=== PATIENT | female | born 1940 | race African-American/Black ===

== ENCOUNTER 2016-11-06 22:33 | Emergency (ER) | payer MEDICARE, MEDICAID ==
[2016-11-06] MEDS ORDERED: Ketorolac Tromethamine 30 MG/ML VIAL ONE (23:36)
--- NOTE | 2016-11-06 23:59 | RAD ---
TWO VIEWS RIGHT KNEE 11/06/16 HISTORY: Right knee pain after fall one day ago. Right knee and ankle swelling since this time. FINDINGS: There is tricompartment osteophytosis. There is mild narrowing of the lateral joint compartment. Denis cifications overlie both the medial and lateral joint compartment suggesting chondrocalcinosis. Ther e is diffuse osteopenia. No fracture or dislocation is identified. IMPRESSION: 1. Osteopenia and osteoarthritis. 2. Chondrocalcinosis medial and lateral joint compartments of the right knee. 3. No acute fracture visualized. POS: [facility]
--- NOTE | 2016-11-07 00:01 | RAD ---
THREE VIEWS RIGHT ANKLE: 11/06/16 HISTORY: Right knee and ankle swelling from mechanical fall one day ago. Right ankle and knee pain. FINDINGS: The ankle mortise is congruent. No fracture or dislocation is seen. The ankle mortise appears congru ent. There is diffuse osteopenia. Subcutaneous soft tissue swelling is seen about the ankle. IMPRESSION: 1. Subcutaneous soft tissue swelling without evidence of fracture. 2. Osteopenia. POS: [facility]
== END 2016-11-07 00:21 | disposition home or self-care (01) ==
LOC: ERS 22:33
DX: S83.91XA Sprain of unspecified site of right knee, initial encounter (principal); S93.401A Sprain of unspecified ligament of right ankle, initial encounter; M19.90 Unspecified osteoarthritis, unspecified site; E11.9 Type 2 diabetes mellitus without complications; I10 Essential (primary) hypertension; I48.91 Unspecified atrial fibrillation; J44.9 Chronic obstructive pulmonary disease, unspecified; K21.9 Gastro-esophageal reflux disease without esophagitis; W01.190A Fall on same level from slipping, tripping and stumbling with subsequent striking against furniture, initial encounter; Z79.51 Long term (current) use of inhaled steroids; Z79.899 Other long term (current) drug therapy
CPT/HCPCS: 96372; J1885

== ENCOUNTER 2016-11-17 01:09 | Inpatient (IN) | payer MEDICARE, MEDICAID ==
[2016-11-17 01:51] LABS: #Eosinphils 0.1 thou/uL (0.0-0.7); #Lymphocytes 1.1 thou/uL (1.20-3.40); #Monocytes 0.5 thou/uL (0.11-0.59); #Neutrophils 2.8 thou/uL (1.40-6.50); %Basophils 0.8 % (0.0-1.0); %Eosinophils 3.1 % (0.0-10.0); %Monocytes 10.6 % (0.0-10.0); Hematocrit 27.1 % (36.0-47.0); Mean Platelet Volume 7.3 fL (7.4-10.4); Red Blood Cell (RBC) Count 2.84 mill/uL (4.20-5.40); White Blood Cell (WBC) Count 4.6 thou/uL (4.8-10.8)
[2016-11-17 02:24] LABS: ALT (SGPT) 7 U/L (8-55); AST (SGOT) 21 U/L (5-34); Alkaline Phosphatase 27 U/L (40-150); Anion Gap 8 mmol/L (10-20); BUN (Urea Nitrogen) 27 mg/dL (9.8-20.1); Bilirubin, Total 0.4 mg/dL (0.2-1.2); CK (CPK) 51 U/L (29-168); Calc. Creatinine Clearance 0 mL/min (70-130); Calcium 8.7 mg/dL (7.8-10.44); Carbon Dioxide 25 mmol/L (23-31); Chloride 97 mmol/L (98-107); Estimated GFR-MDRD 41; Globulin 3.7 g/dL (2.4-3.5); Lipase 122 U/L (8-78); Protein, Total 6.8 g/dL (6.0-8.3)
[2016-11-17 02:26] LABS: Troponin I 0.013 ng/mL (< 0.028)
[2016-11-17] MEDS ORDERED: Sodium Chloride 0.9% 1,000 ML IV SCH (05:15)
--- NOTE | 2016-11-17 08:37 | RAD ---
PORTABLE UPRIGHT FRONTAL CHEST RADIOGRAPH: DATE: 11/17/16. COMPARISON: 10/06/16. HISTORY: Allergic reaction, COPD, hypertension, diabetes mellitus. FINDINGS: There is mild rotation to the right. Heart and mediastinal contour is unremarkable. No pneumothora x, pleural fluid, focal consolidation, or alveolar edema. IMPRESSION: No acute findings. POS: [facility]
--- NOTE | 2016-11-17 09:11 | HP ---
CHIEF COMPLAINT: Hyponatremia, thrush and exacerbation of chronic obstructive pulmonary disease. HISTORY OF PRESENT ILLNESS: The patient is a 75-year-old [facility] a [facility] to Cipro. She had a sore throat and dizziness, worsen ing of her cough and itching diffusely. In the emergency room, she was evaluated and noted to have a sodium of 125. Her tongue was completely coated with thrush. Her cough was much worse, necessita ting nebulizer treatments in the emergency room to help alleviate constant coughing. She is put int o the [facility] for treatment of her exacerbation of COPD and thrush and to correct the hyponatremia. PAST MEDICAL HISTORY: Significant for atrial fibrillation - unable to anticoagulate due to recurren t GI bleed and thrombocytopenia, COPD, diabetes type 2, possibly exacerbated by steroids in the past to control her COPD, hypertension, severe GERD, hernia, tracheomalacia, esophageal stricture, pancr eatitis, colonic polyps, history of congestive heart failure, history of peptic ulcer disease requir ing resection. Coronary artery disease status post stents and adult respiratory distress syndrome. PAST SURGICAL HISTORY: Includes cholecystectomy, colonic polyp removal and tracheal stent placement , Billroth II gastric surgery, section and cardiac stents and prior history of adult respir atory distress syndrome, pneumonia. SOCIAL HISTORY: Previous [id number] smoker. She has quit less than 10 years ago. Denies alcohol use or IV drug use. Lives at home with her family. FAMILY HISTORY: Includes diabetes, hypertension. ALLERGIES: ASPIRIN, CIPROFLOXACIN, CLARITHROMYCIN, DOXYCYCLINE, INFLUENZA VACCINE, KEFLEX, MORPHINE , PENICILLINS, PNEUMOCOCCAL VACCINE. MEDICATIONS ON ADMISSION: Lasix 40 mg daily, losartan 25 mg daily. Apparently, she has been taking some over the counter Dexatrim. VITAL SIGNS: Blood pressure 138/69, pulse 95, respirations 18, temperature 98.6. Pain scale 4/10, O2 sat 100% on room air. REVIEW OF SYSTEMS: GENERAL: Denying fever, chills, malaise generally. EYES: Denies blurred vision, drainage or pain. ENT: Denies congestion or drainage, but has chronic cough and her tongue is coated with painful swa llowing and dysphagia. NECK: Supple, no pain there. CHEST: Has chronic cough, made much worse recently. No pain with deep inspiration. CARDIOVASCULAR: Denies palpitations or arrhythmias. GI: Denies nausea, vomiting, diarrhea or pain in the abdomen. GENITOURINARY: Denies dysuria, blood in urine or stool. MUSCULOSKELETAL: She has significant lower leg swelling, denies painful range of motion or trauma. SKIN: Admits to diffuse itching, but there is no rash or obvious lesions. NEUROLOGIC: She reports dizziness, but denies headache, blurred vision. ENDOCRINE: She denies excessive thirst, urination. ALLERGIC: Reports that she is having a reaction to Cipro with diffuse itching. NEURO: Mental status, no trouble with mentation, confusion, hallucinations or delusions. PHYSICAL EXAMINATION: GENERAL: At the time of admission generally well-developed, well-nourished elderly female, alert, o riented, and cooperative. HEENT: Normocephalic and atraumatic. Pupils are equal, round, and reactive to light with arcus sen ilis bilaterally. TMs clear. Nares clear. Pharynx with erythema and swollen tongue with diffuse w nadeen coating over the tongue, it is extremely thick and unable to remove. NECK: Supple, without loud respirations, no swelling or edema. CHEST: With diminished breath sounds diffusely. BREASTS: Breast exam deferred. HEART: Irregular rate, irregular rhythm. ABDOMEN: Soft, nontender, without organomegaly. GENITOURINARY: Deferred. EXTREMITIES: Without clubbing, cyanosis. There is 2+ edema in both lower extremities. Normal rang e of motion demonstrated in upper and lower extremities with symmetrical muscular tone development n oted. SKIN: Intact without acute lesions or rashes. NEUROLOGIC: Cranial nerves are intact. Unable to test gait and cerebellar function at this time. Sensory exam is intact. Mental status is at baseline with mild anxiety. SKIN: Without acute rashes or lesions. LABORATORY: Lab work thus far shows WBCs at 4.6, hemoglobin 8.7, hematocrit 27.1 with platelets at 144. Sodium 125, potassium 4.7, chloride 97, CO2 25, BUN 27, creatinine 1.52. ALT diminished at 7, alkaline phosphatase diminished at 27. CK-MB is negative. BNP slightly elevated at 236, lipase at 122. ASSESSMENT: 1. Exacerbation of chronic obstructive pulmonary disease. 2. Hyponatremia. 3. Oral thrush. 4. Renal insufficiency. 5. Mild congestive heart failure with a BNP of 236.9. 6. Probable mild chronic pancreatitis, asymptomatic at this time. PLAN: Scheduled neb treatments. Continue diuretic, antifungal medication both oral and topical, fl uid restriction to allow for elevation of sodium levels, serial reevaluation. We will also Hemoccul t stools to see if any GI bleed is present at this time.
[2016-11-17] MEDS ORDERED: Milk Of Magnesia 30 ML UDCUP PO SCH (10:30)
[2016-11-17] MEDS ORDERED: Furosemide 40 MG TAB PO SCH (10:30)
[2016-11-17] MEDS ORDERED: Fluconazole 100 MG TAB PO SCH (10:30)
[2016-11-17] MEDS: Sodium Chloride 0.9% 1,000 ML IV SCH ×2 (10:45→20:55)
[2016-11-17] MEDS ORDERED: Acetaminophen/Codeine 30-300mg Tablet PO SCH (12:00)
[2016-11-17] MEDS: Nystatin 500,000 UNITS/5 ML UDCUP SSW SCH ×3 (13:28→20:52)
[2016-11-17] MEDS ORDERED: traMADol HCl 50 MG TAB PO SCH (15:30)
[2016-11-17] MEDS: traMADol HCl 50 MG TAB PO SCH (20:51)
[2016-11-17] MEDS: Losartan Potassium 25 MG TAB PO SCH (20:51)
[2016-11-18 04:18] VITALS: BMI 29.1
[2016-11-18 05:28] LABS: #Eosinphils 0.1 thou/uL (0.0-0.7); #Lymphocytes 0.8 thou/uL (1.20-3.40); #Monocytes 0.4 thou/uL (0.11-0.59); %Basophils 0.5 % (0.0-1.0); %Lymphocytes 18.7 % (21.0-51.0); %Monocytes 9.7 % (0.0-10.0); Hematocrit 26.5 % (36.0-47.0); Mean Platelet Volume 7.4 fL (7.4-10.4); Red Blood Cell (RBC) Count 2.74 mill/uL (4.20-5.40); White Blood Cell (WBC) Count 4.4 thou/uL (4.8-10.8)
[2016-11-18] MEDS: traMADol HCl 50 MG TAB PO SCH ×3 (05:30→20:50)
[2016-11-18] MEDS: Sodium Chloride 0.9% 1,000 ML IV SCH (05:34)
[2016-11-18 05:44] LABS: Anion Gap 8 mmol/L (10-20); BUN (Urea Nitrogen) 21 mg/dL (9.8-20.1); Calc. Creatinine Clearance 46 mL/min (70-130); Calcium 8.2 mg/dL (7.8-10.44); Carbon Dioxide 23 mmol/L (23-31); Chloride 107 mmol/L (98-107); Estimated GFR-MDRD 60
--- NOTE | 2016-11-18 08:13 | PRG ---
DATE OF SERVICE: 11/18/2016 The patient did not rest very well because she was coughing. She is hungry and needs help ordering breakfast. She denies any chest or arm pain. She stated that she also feels a little bit weak toda y. PHYSICAL EXAMINATION: GENERAL: Upon evaluation, she is awake. She is alert. She is tachypneic. VITAL SIGNS: Blood pressure 122/70, pulse 90, respiration 16, temperature 98.3. HEENT: Unremarkable. She had bilateral arcus senilis. There is no xanthelasma. NECK: Supple with no increased JVP. Carotid had good upstroke with no thyromegaly. COR: Regular rate and rhythm. CHEST: Scattered rhonchi. ABDOMEN: Soft, nontender with normoactive bowel sounds. No bruit or organomegaly. EXTREMITIES: No edema or cyanosis. She had palpable pedal pulses. SKIN: There is no evidence of ulceration, lesion or rash. NEUROLOGIC: She is awake and alert and oriented to person, place and time. LABORATORY DATA: Showed an H\T\H of 8.4 and 26.5. Her white blood cells 4.4, platelet count is 121 . Her sodium is better at 134. ASSESSMENT: 1. Exacerbation of chronic obstructive pulmonary disease. 2. Hyponatremia, improved. 3. Anemia. 4. Hypertension. 5. Renal insufficiency, improved. PLAN: 1. We will go ahead and check stools for occult blood and also check iron studies. 2. We will follow up with lab in the morning. 3. We will hold off on GI now since she had a GI workup 10/09/2016 and endoscopy was not recommende d as she is high risk for sedation. The patient verbalized understanding and all questions answered to her satisfaction.
[2016-11-18] MEDS: Milk Of Magnesia 30 ML UDCUP PO SCH (08:18)
[2016-11-18] MEDS: Nystatin 500,000 UNITS/5 ML UDCUP SSW SCH ×4 (08:19→20:50)
[2016-11-18] MEDS: Fluconazole 100 MG TAB PO SCH (08:19)
[2016-11-18] MEDS: Furosemide 40 MG TAB PO SCH (08:19)
[2016-11-18] MEDS: Losartan Potassium 25 MG TAB PO SCH (20:50)
[2016-11-19] MEDS: traMADol HCl 50 MG TAB PO SCH (05:51)
[2016-11-19 06:04] LABS: #Eosinphils 0.1 thou/uL (0.0-0.7); #Lymphocytes 1.2 thou/uL (1.20-3.40); #Monocytes 0.7 thou/uL (0.11-0.59); #Neutrophils 4.3 thou/uL (1.40-6.50); %Basophils 0.5 % (0.0-1.0); %Eosinophils 1.1 % (0.0-10.0); %Lymphocytes 19.4 % (21.0-51.0); %Monocytes 10.3 % (0.0-10.0); Hematocrit 25.7 % (36.0-47.0); Mean Platelet Volume 8.6 fL (7.4-10.4); Red Blood Cell (RBC) Count 2.63 mill/uL (4.20-5.40); White Blood Cell (WBC) Count 6.3 thou/uL (4.8-10.8)
[2016-11-19 07:29] VITALS: BP 136/79; TEMP 98.4
[2016-11-19] MEDS: Nystatin 500,000 UNITS/5 ML UDCUP SSW SCH (09:46)
[2016-11-19] MEDS: Milk Of Magnesia 30 ML UDCUP PO SCH (09:46)
[2016-11-19] MEDS: Furosemide 40 MG TAB PO SCH (09:46)
[2016-11-19] MEDS: Fluconazole 100 MG TAB PO SCH (09:46)
--- NOTE | 2016-11-19 10:04 | PQF ---
CLINICAL DOCUMENTATION IMPROVEMENT CLARIFICATION FORM: ICD-10 Updated PLEASE DO AN ADDENDUM TO THE PROGRESS NOTE WITH ANY DOCUMENTATION UPDATES OR ADDITIONS AND CARRY THROUGH TO DC SUMMARY. THANK YOU. DATE: 11/19 ATTN: DR. DIANNE GRANT Please exercise your independent, professional judgment in responding to the clarification form. Clinical indicators are provided on the bottom of this form for your review Please check appropriate box(s): HEART FAILURE: A.TYPE: [ ] Systolic / HFrEF [ ] Diastolic / HFpEF [ x ] Combined Systolic / Diastolic B.ACUITY [ ] Acute [ ] Acute on Chronic [ x ] Chronic C.WITH (if appropriate) [ ] Hypertensive Heart Disease [ ] Hypertensive Heart and Kidney Disease [ ] Other diagnosis [ x ] Unable to determine For continuity of documentation, please document condition throughout progress notes and discharge summary. Thank You. CLINICAL INDICATORS - SIGNS / SYMPTOMS / LABS PHYSICIAN H&P DOCUMENTATION 11/17: PAST MEDICAL HISTORY: HISTORY OF CHF PHYSICAL EXAM: EXTREMITIES: THERE IS 2+ EDEMA IN BOTH LE ASSESSMENT: 5 : MILD CHF WITH A BNP OF 236.9 PLAN: CONTINUE DIURETIC,... BNP: 236.9 RISKS: CAD WITH CARDIAC STENTS HTN TREATMENTS: NOW DOSE OF PO LASIX ON 11/17 CONTINUATION OF PO LASIX (11/18 - PRESENT) THANK YOU! [place] (This form is maintained as a part of the permanent medical record) 2015 [employer]. All Rights Reserved Odessa Cordova RN, BSN [email or web address] Office: [phone] [facility]
--- NOTE | 2016-11-19 10:13 | PQF ---
CLINICAL DOCUMENTATION IMPROVEMENT CLARIFICATION FORM: ICD-10 Updated PLEASE DO AN ADDENDUM TO THE PROGRESS NOTE WITH ANY DOCUMENTATION UPDATES OR ADDITIONS AND CARRY THROUGH TO DC SUMMARY. THANK YOU. DATE: 11/19 ATTN: DR. DIANNE GRANT Please exercise your independent, professional judgment in responding to the clarification form. Clinical indicators are provided on the bottom of this form for your review Please check appropriate box(s): [ x ] Acute Renal Failure (ARF) / Acute Kidney Injury (MOODY) (Please specify associated condition, if applicable) [ x ] Other Etiology or underlying conditions related to the diagnosis of ARF/ MOODY: ____dehydration - mild [ ] Acute on Chronic Renal Failure please specify Stage of CKD (see below) [ ] CKD without ARF/MOODY please specify Stage of CKD [ ] Other diagnosis [ ] Unable to determine In addition, please specify: Present on Admission (POA): [ ] Yes [ ] No [ ] Unable to determine National Kidney Foundation Guidelines for CKD Staging Stage I Kidney damage with normal or increased GFR GFR > 90 Stage II Kidney damage with mildly decreased GFR GFR 60-89 Stage III Kidney damage with moderately decreased GFR GFR 30-59 Stage IV Kidney damage with severely decreased GFR GFR 16-29 Stage V Kidney failure GFR<15 ESRD End Stage Renal Disease On dialysis For continuity of documentation, please document condition throughout progress notes and discharge summary. Thank You. CLINICAL INDICATORS - SIGNS / SYMPTOMS / LABS PHYSICIAN H&P DOCUMENTATION 11/17: ASSESSMENT: 4: RENAL INSUFFICIENCY ( NON-SPECIFIC TERMINOLOGY) [employer] SAL[employer] REPRESENTATIVE PROGRESS NOTE DOCUMENTATION 11/18: ASSESSMENT: RENAL INSUFFICIENCY, IMPROVED BUN: 27 CR: 1.52 GFR: 41 (ADMIT, 11/17) 21 1.09 60 (11/18) RISK FACTORS: HOME PO DIURETIC (LASIX) HTN CAD TREATMENTS: IVF (NS 11/17 - PRESENT) SERIAL LAB (11/17 - 11/18) THANK YOU! [place] (This form is maintained as a part of the permanent medical record) 2014 [employer]. All Rights Reserved Odessa Cordova RN, BSN [email or web address] Office: [phone] [facility]
== END 2016-11-19 12:23 | disposition home or self-care (01) | DRG 190 ==
LOC: ERS 01:09 → T4-B 03:30 → OBSVTOIN 08:53
PROVIDERS: ADMIT Specialist; ATTEND Specialist
DX: J44.1 Chronic obstructive pulmonary disease with (acute) exacerbation (principal); K85.90 Acute pancreatitis without necrosis or infection, unspecified; N17.9 Acute kidney failure, unspecified; B37.0 Candidal stomatitis; E87.1 Hypo-osmolality and hyponatremia; I48.2 Chronic atrial fibrillation; I11.0 Hypertensive heart disease with heart failure; I50.9 Heart failure, unspecified; E11.9 Type 2 diabetes mellitus without complications; K21.9 Gastro-esophageal reflux disease without esophagitis; J39.8 Other specified diseases of upper respiratory tract; K27.9 Peptic ulcer, site unspecified, unspecified as acute or chronic, without hemorrhage or perforation; I25.10 Atherosclerotic heart disease of native coronary artery without angina pectoris; Z95.5 Presence of coronary angioplasty implant and graft; Z87.891 Personal history of nicotine dependence; Z88.6 Allergy status to analgesic agent; Z88.1 Allergy status to other antibiotic agents; Z88.5 Allergy status to narcotic agent; Z88.0 Allergy status to penicillin; Z88.7 Allergy status to serum and vaccine; D64.9 Anemia, unspecified
CPT/HCPCS: 36415; 36416; 71010; 80048; 80053; 82553; 82607; 82728; 82746; 83540; 83690; 83880; 84484; 85025; 87040; 93005; 94640; 96360; A4216; G8996-GN-CI; G8997-GN-CI; J7620

== ENCOUNTER 2017-03-30 01:02 | Inpatient (IN) | payer MEDICARE, MEDICAID ==
[2017-03-30 01:51] LABS: #Lymphocytes 1.5 thou/uL (1.20-3.40); #Monocytes 0.7 thou/uL (0.11-0.59); %Basophils 0.6 % (0.0-1.0); %Lymphocytes 21.1 % (21.0-51.0); %Neutrophils 69.3 % (42.0-75.0); Mean Corpuscular HGB CONC 32.2 g/dL (32.0-36.0); Mean Corpuscular Hemoglobin 29.6 pg (27.0-31.0); Mean Platelet Volume 9.3 fL (7.4-10.4); Platelet Count 204 thou/uL (130-400); RBC Distribution Width 13.5 % (11.5-14.5); Red Blood Cell (RBC) Count 3.73 mill/uL (4.20-5.40); White Blood Cell (WBC) Count 7.3 thou/uL (4.8-10.8)
[2017-03-30 02:04] LABS: Troponin I 0.064 ng/mL (< 0.028)
[2017-03-30] MEDS ORDERED: Esmolol 2,500 MG/250 ML 0 ML ONE (03:13)
[2017-03-30] MEDS ORDERED: Esmolol 100 MG/10 ML VIAL IVP SCH (03:30)
[2017-03-30 04:47] LABS: INR-International Normal Ratio 1.1; Prothrombin Time 14.3 SEC (12.0-14.7)
[2017-03-30 05:05] LABS: ALT (SGPT) 12 U/L (8-55); AST (SGOT) 21 U/L (5-34); Albumin 3.7 g/dL (3.4-4.8); Alkaline Phosphatase 26 U/L (40-150); Anion Gap 14 mmol/L (10-20); BUN (Urea Nitrogen) 63 mg/dL (9.8-20.1); Bilirubin, Total 0.6 mg/dL (0.2-1.2); Calc. Creatinine Clearance 0 mL/min (70-130); Carbon Dioxide 14 mmol/L (23-31); Chloride 113 mmol/L (98-107); Estimated GFR-MDRD 25; Globulin 4.2 g/dL (2.4-3.5); Glucose 117 mg/dL (83-110); Lipase 83 U/L (8-78); Potassium 5.1 mmol/L (3.5-5.1); Protein, Total 7.9 g/dL (6.0-8.3); Sodium 136 mmol/L (136-145)
[2017-03-30] MEDS ORDERED: Esmolol 2,500 MG/250 ML 250 ML ONE (06:27)
[2017-03-30 06:38] LABS: Troponin I 0.057 ng/mL (< 0.028)
[2017-03-30 06:50] LABS: Bilirubin Negative (Negative); Blood, Urine Negative (Negative); Clarity CLEAR (Clear); Glucose, Urine (Dipstick) Negative (Negative); Leukocyte Negative (Negative); Nitrite Negative (Negative); Protein, Urine (Dipstick) Negative (Neg-Trace); Specific Gravity, Urine 1.013 (1.002-1.036); Urobilinogen 0.2 mg/dL (0.2-1.0); pH, Urine 5.5 (5.0-9.0)
--- NOTE | 2017-03-30 08:16 | HP ---
CHIEF COMPLAINT: Altered mental status. HISTORY OF PRESENT ILLNESS: The patient is a 76-year-old female whom the daughter states when she aw hood earlier this morning to give her commands about going to the bathroom, the patient was confused a nd speaking things that were illogical and not following commands. The patient denies any fever, denise sea, vomiting, diarrhea, coughing more than usual, or any other behavior like falls, striking her hea d. She had EMS bring her mom in. Since arrival in the emergency room of note is the atrial fibrill ation with rapid ventricular response, otherwise chest x-ray is clear. Urinalysis is normal. It was felt that she was very dry and despite fluid resuscitation has not returned to her baseline mentatio n. CT of the head is unremarkable. It is felt that we need further close observation and regulation of her rate. She just saw the resaw operator last week per the daughter who recommended anticoagulati on for her atrial fibrillation, but the patient refused at that time. The other note is that her lauren al functions have worsened significantly since prior hospitalization. There the creatinine was 1.5 a nd at this admission it is 2.34 with a BUN of 63. PAST MEDICAL HISTORY: Significant for atrial fibrillation, unable to coagulate due to recurrent GI b leeding and thrombocytopenia of the past, chronic obstructive pulmonary disease, diabetes type 2, hyp ertension, severe GERD, abdominal hernia, tracheomalacia, esophageal strictures, pancreatitis, coloni c polyps, CHF, peptic ulcer disease, coronary artery disease, status post stents and adult respirator y distress syndrome. Pneumonia. PAST SURGICAL HISTORY: Includes cholecystectomy, colon polyps removed, tracheal stent placed, Billro th II gastric surgery, section and cardiac stents. SOCIAL HISTORY: Previous [id number] smoker, quit less than 10 years ago. Denies alcohol use or IV drug use. Lives at home with her family. FAMILY HISTORY: Includes diabetes and hypertension. ALLERGIES: ASPIRIN, CIPROFLOXACIN, CLARITHROMYCIN, DOXYCYCLINE, INFLUENZA VACCINE, KEFLEX, MORPHINE, PENICILLINS, PNEUMOCOCCAL VACCINE. CURRENT MEDICATIONS: Lasix 40 mg daily, losartan 25 mg daily. REVIEW OF SYSTEMS: GENERAL: The daughter denies that she has had any recent fever, malaise, vomiting, diarrhea. HEENT: Daughter is the historian, states there has been no complaints of blurry vision, drainage or pain. CHEST: Daughter states that chest exam, she has a chronic cough, nonproductive, but denies any dyspn ea. HEART: Denies any palpitations or chest pain. ABDOMEN: Denied any nausea, vomiting, diarrhea. GENITOURINARY: Denies any blood in urine or stool or painful urination. MUSCULOSKELETAL: Denied any joint pain, swelling or erythema. SKIN: No new rashes or lesions. NEUROLOGIC: She is here for altered mental status and confused mentation, but denies any falls or re cent head trauma. LYMPHATICS/ENDOCRINE: Denies any new swelling or bruising. PHYSICAL EXAMINATION: GENERAL: This is a well-developed, well-nourished elderly female at this time who is responsive, but speaks in nonsensical words. HEENT: Normocephalic and atraumatic. Pupils equal, round, and reactive to light with arcus senilis bilaterally. TMs, nares, pharynx clear. NECK: Supple. CHEST: With diminished breath sounds throughout, but at baseline for this patient. BREAST: Deferred. HEART: Irregular rate, irregular rhythm, running from 114 to 130. ABDOMEN: Soft, nontender, without organomegaly. GENITOURINARY: Deferred. EXTREMITIES: Extremities without clubbing, cyanosis, or edema. Demonstrated range of motion per pat ient. SKIN: Without acute rashes or lesions. Poor turgor in the lower extremities. NEUROLOGIC: Unable to test gait and cerebellar function, unable to test mental status and gross sens ory exams intact. LABORATORY AND X-RAY FINDINGS: The lab work on admission shows WBC at 7.3, hemoglobin 11, hematocrit 34.3, platelets at 204. Sodium 136, potassium 5.1, chloride 113, BUN 63, creatinine 2.34, glucose 1 17. Cardiac enzymes show CK-MB of 2 and an indeterminate range troponin I at 0.64, probably renally induced. The PT is 14.3, INR 1.1. Urinalysis is entirely unremarkable, negative. Chest x-ray is clear. EKG shows atrial fibrillation with RVR at a ventricular rate of 136. ASSESSMENT: 1. Altered mental status, etiology has yet to be determined. 2. Dehydration. 3. Atrial fibrillation with rapid ventricular response. 4. Chronic obstructive pulmonary disease, stable. 5. History non-insulin dependent diabetes, mild. 6. History of tracheomalacia with stent placement. 7. Acute on chronic renal insufficiency. Acute kidney injury probably due to dehydration. PLAN: IMCU admission. Will begin some cortisone. Will consult Dr. Holt for atrial fibrillation and RVR management. We will serially reevaluate her and get an MRI of her head without contrast and will hydrate her see if her BUN and creatinine will improve.
--- NOTE | 2017-03-30 08:22 | RAD ---
RADIOGRAPH CHEST 1 VIEW: HISTORY: A 76-year-old female with altered mental status. FINDINGS: There is cardiomegaly. The thoracic aorta is tortuous and ectatic. There is no evidence of air space density, pulmonary edema, or pneumothorax. The lateral costophrenic angles are sharp. IMPRESSION: 1) No acute pulmonary findings. 2) Cardiomegaly without congestive heart failure. 3) Ectasia of thoracic aorta. jn [] POS: OFF
[2017-03-30 08:33] VITALS: BMI 25.2
[2017-03-30] MEDS: Sodium Chloride 0.9% 1,000 ML IV SCH ×3 (08:53→23:28)
[2017-03-30] MEDS ORDERED: Diltiazem HCl 125 MG, Admixture Fee 1 EACH in Sodium Chloride 0.9% 100 ML IVPB SCH (09:00)
--- NOTE | 2017-03-30 09:38 | CT ---
PRELIMINARY REPORT/[facility]/EMERGENCY AFTER HOURS PROCEDURE: EXAM: CT Head Without Intravenous Contrast EXAM DATE/TIME: Exam ordered 03/30/2017 2:20 AM CLINICAL HISTORY: 76 years old, female; Signs and symptoms; Altered mental status/memory loss; Confusion or disorientat ion; Patient HX: AMS TECHNIQUE: Axial computed tomography images of the head/brain without intravenous contrast. COMPARISON: No relevant prior studies available. FINDINGS: Brain: Normal. No hemorrhage. No significant white matter disease. No edema. Ventricles: Normal. No ventriculomegaly. Bones/joints: Normal. No acute fracture. Soft tissues: Normal. Sinuses: Unremarkable as visualized. No acute sinusitis. Mastoid air cells: Unremarkable as visualized. No mastoid effusion. IMPRESSION: No acute intracranial hemorrhage. Thank you for allowing us to participate in the care of your patient. Dictated and Authenticated by: Iam Perales MD 03/30/2017 2:50 AM Central Time ([place] & [place]) FINAL REPORT NONCONTRAST HEAD CT: COMPARISON: 10/21/12. TECHNIQUE: Noncontrast head CT is performed from the skull base to the skull vertex. HISTORY: Confusion. FINDINGS: This report is in agreement with the preliminary report by [facility]. No acute intracranial process. POS: [facility]
[2017-03-30] MEDS: Pantoprazole 40 MG VIAL IVP SCH (10:14)
[2017-03-30] MEDS: Enoxaparin Sodium 30 MG/0.3 ML SYRINGE SC SCH (10:15)
--- NOTE | 2017-03-30 14:28 | CON ---
DATE OF CONSULTATION: 03/30/2017 HISTORY OF PRESENT: The patient is an unfortunate 76-year-old woman with a history of atrial fibrillation who presented with altered mental status. The patient has a history of valvular heart disease. She has a history also of GI hemorrhage. The patient has declined to be placed on anticoagulation therapy and has also not been agreeable to proceeding with a Watchman device. The patient has been in chronic atrial fibrillation. She presented with confusion. She is now awake and oriented. She denies having any palpitations. The patient denies having any chest discomfort. PAST MEDICAL HISTORY: 1. GI bleed. 2. Thrombocytopenia. 3. COPD. 4. Diabetes mellitus. 5. Peptic ulcer disease. PAST SURGICAL HISTORY: Cholecystectomy, gastric surgery and . SOCIAL HISTORY: Former smoker. ALLERGIES: CIPROFLOXACIN, CLARITHROMYCIN, DOXYCYCLINE, INFLUENZA, KEFLEX, MORPHINE and PENICILLIN. MEDICATIONS ON ADMISSION: Lasix 80 mg 2 tablets daily, losartan 50 daily, potassium 20 daily and Cardizem 120 daily. REVIEW OF SYSTEMS: Ten-point system unremarkable. Recent bright red blood per rectum, hematuria. PHYSICAL EXAMINATION: GENERAL: Thin woman who is alert and oriented x3. VITAL SIGNS: Blood pressure 132/98, heart rate is 110 and irregular. NECK: Showed no jugular venous distention. LUNGS: Coarse breath sounds bilateral. HEART: Irregular rate and rhythm. Normal S1 and S2. 1/6 systolic murmur. ABDOMEN: Nondistended. EXTREMITIES: Showed no edema. SKIN: Warm and dry. VASCULAR: Radial pulses are 2+. LABORATORY DATA: Sodium 136, potassium 5.1, chloride 113, bicarbonate was 14, BUN 63, creatinine 2.34 and troponin 0.057. BNP 600. White blood cell count 7.3, hemoglobin 11.0, hematocrit 34.3 and platelets 204. IMAGING DATA: Her EKG revealed her to have atrial fibrillation with a nonspecific ST-T wave abnormality. IMPRESSION: 1. Atrial fibrillation, permanent. 2. History of cerebrovascular accident. 3. History of gastrointestinal hemorrhage. 4. Chronic renal insufficiency. 5. Diabetes mellitus. 6. History of tracheomalacia. PLAN: This patient presents with atrial fibrillation with rapid ventricular response. The patient has a history of GI hemorrhage. She has declined being placed on anticoagulation or a Watchman device. The patient has been restarted on Cardizem. I will check the patient's echocardiogram. We will follow this patient with you through her hospitalization. ANGELA
[2017-03-31 05:00] LABS: #Monocytes 0.8 thou/uL (0.11-0.59); #Neutrophils 4.2 thou/uL (1.40-6.50); %Basophils 0.3 % (0.0-1.0); %Eosinophils 0.1 % (0.0-10.0); %Lymphocytes 16.3 % (21.0-51.0); %Monocytes 13.4 % (0.0-10.0); %Neutrophils 69.9 % (42.0-75.0); Mean Corpuscular HGB CONC 32.5 g/dL (32.0-36.0); Mean Corpuscular Hemoglobin 30.2 pg (27.0-31.0); Mean Corpuscular Volume 93.1 fl (81.0-99.0); Mean Platelet Volume 8.9 fL (7.4-10.4); Platelet Count 136 thou/uL (130-400); RBC Distribution Width 13.3 % (11.5-14.5); Red Blood Cell (RBC) Count 2.98 mill/uL (4.20-5.40)
[2017-03-31 05:09] LABS: Anion Gap 8 mmol/L (10-20); BUN (Urea Nitrogen) 44 mg/dL (9.8-20.1); Calc. Creatinine Clearance 32 mL/min (70-130); Calcium 8.7 mg/dL (7.8-10.44); Carbon Dioxide 16 mmol/L (23-31); Chloride 125 mmol/L (98-107); Estimated GFR-MDRD 43; Glucose 100 mg/dL (83-110); Potassium 4.7 mmol/L (3.5-5.1); Sodium 144 mmol/L (136-145)
--- NOTE | 2017-03-31 08:34 | PRG ---
DATE OF SERVICE: 03/31/2017 SUBJECTIVE: The patient had a good night. She still feels short of breath. She is receiving a leyda thing treatment right now. She is about to eat breakfast. She feels weak, does not feel like she is ready to go home yet. Upon evaluation, she is awake. She is receiving a breathing treatment. She is tachypneic on evaluation. PHYSICAL EXAMINATION: VITAL SIGNS: Her blood pressure is 128/90, pulse 100, respirations 28. She is afebrile. NECK: Supple. JVD cannot be assessed due to obese neck. Carotid had good upstroke with no thyromeg adam. COR: Regular rate and rhythm. CHEST: Scattered wheezing. ABDOMEN: Soft, nontender with normoactive bowel sounds. There is no bruit or organomegaly. EXTREMITIES: Trace edema. She had palpable pedal pulses. SKIN: There is no evidence of ulcer, lesion or rash. NEUROLOGIC: She is awake, alert, and oriented to person, place, and time. LABORATORY DATA: Her H&H is 9.0 and 27.0. Her platelet is 136. Her BUN is 44, creatinine 1.44. ASSESSMENT: 1. Chronic obstructive pulmonary disease. 2. Atrial fibrillation. 3. Anemia with thrombocytopenia. 4. Peptic ulcer disease. 5. Diabetes. 6. Multiple medical problems. PLAN: We will continue the patient in [facility]. I do not feel like the patient is even close to going h ome yet. We will ask physical therapy to see if they can see the patient in consultation and will fo llow up with lab in the morning.
--- NOTE | 2017-03-31 08:43 | CON ---
DATE OF CONSULTATION: 03/31/2017 HISTORY: A 76-year-old female who is encephalopathic, unable to give much history, but she has been in the hospital numerous times. She comes in yesterday with mental status change, in fact, she was h ere about 6 months ago in the ER for similar problems. Her primary care physician who admitted her this time. She is a former smoker, though she is clearly not able to give any history. She has multiple issues that I am unable to get any information from any family members. I have reviewed her extensive past medical history per the records extensively. I reviewed all of the x-rays myself personally. PAST MEDICAL HISTORY: 1. Pertinent for atrial fibrillation. 2. History of COPD. 3. Tobacco abuse. 4. Hypertension. 5. Dementia. 6. Stricture of the esophagus. 7. Pancreatitis 8. CHF. PAST SURGICAL HISTORY: Gallbladder, polyps, gastric surgery, , some kind of a stent placed in. SOCIAL HISTORY: Tobacco abuse. Quit 10 years ago, apparently. As noted, unable to get any addition al information. HOME MEDICATIONS: Losartan 25, Lasix 40, Cardizem 240, Dexilant 60, Pulmicort neb treatments. ALLERGIES: Multiple, MORPHINE, CIPRO, CLINDAMYCIN, DOXYCYCLINE. REVIEW OF SYSTEMS: Difficult to obtain. PHYSICAL EXAMINATION: VITAL SIGNS: Sats are 96%, respirations 12, pulse 100. Temperature 98, blood pressure 180/90. CHEST: Extensive rhonchi bilaterally. CARDIAC: Sinus tachycardia. ABDOMEN: Soft. NEURO: Encephalopathic. She is dry. LABORATORY AND X-RAY FINDINGS: White count 6,000, H&H 9 and 27, platelet count 136, creatinine 1.4, BUN 44. X-ray shows a questionable left-sided infiltrate. IMPRESSION: 1. Retained secretions, left-sided pneumonia. 2. Encephalopathy. 3. Renal failure. 4. Atrial fibrillation. 5. Marked cachexia. PLAN: We are trying to get ahold of the daughter to get additional information. I have started broa d-spectrum antibiotics, nebulizer treatments, steroids. Clearly if her condition gets worse she may require intubation. I had a talk with her primary care physician. Please note this is a consultation note with 70 minutes of which 50% of the time was spent in direct patient care.
[2017-03-31] MEDS ORDERED: Cefepime 1 GM in Sodium Chloride 0.9% 100 ML IVPB SCH (09:00)
[2017-03-31] MEDS: Cefepime 1 GM, Admixture Fee 1 EACH in Sterile Water 10 ML SLOW IVP SCH ×2 (09:08→20:23)
[2017-03-31] MEDS: Enoxaparin Sodium 30 MG/0.3 ML SYRINGE SC SCH (09:08)
[2017-03-31] MEDS: Pantoprazole 40 MG VIAL IVP SCH (09:09)
[2017-03-31] MEDS: Sodium Chloride 0.9% 1,000 ML IV SCH ×2 (12:57→21:00)
[2017-04-01 05:54] LABS: ALT (SGPT) 9 U/L (8-55); AST (SGOT) 16 U/L (5-34); Alkaline Phosphatase 20 U/L (40-150); Anion Gap 13 mmol/L (10-20); BUN (Urea Nitrogen) 34 mg/dL (9.8-20.1); Bilirubin, Total 0.5 mg/dL (0.2-1.2); Calc. Creatinine Clearance 33 mL/min (70-130); Calcium 8.3 mg/dL (7.8-10.44); Carbon Dioxide 13 mmol/L (23-31); Chloride 120 mmol/L (98-107); Estimated GFR-MDRD 44; Glucose 209 mg/dL (83-110); Potassium 4.1 mmol/L (3.5-5.1); Sodium 142 mmol/L (136-145)
[2017-04-01] MEDS: Sodium Chloride 0.9% 1,000 ML IV SCH (05:56)
[2017-04-01 06:33] LABS: #Lymphocytes 0.4 thou/uL (1.20-3.40); #Monocytes 0.2 thou/uL (0.11-0.59); #Neutrophils 4.1 thou/uL (1.40-6.50); %Basophils 0.1 % (0.0-1.0); %Lymphocytes 8.9 % (21.0-51.0); %Monocytes 3.5 % (0.0-10.0); %Neutrophils 87.5 % (42.0-75.0); Hemoglobin 8.2 g/dL (12.0-16.0); Mean Corpuscular HGB CONC 31.7 g/dL (32.0-36.0); Mean Corpuscular Hemoglobin 29.8 pg (27.0-31.0); Mean Corpuscular Volume 94.1 fl (81.0-99.0); Mean Platelet Volume 9.2 fL (7.4-10.4); PLT Morphology Comment Appears Decreased; Platelet Count 119 thou/uL (130-400); RBC Distribution Width 13.5 % (11.5-14.5); Red Blood Cell (RBC) Count 2.76 mill/uL (4.20-5.40); White Blood Cell (WBC) Count 4.7 thou/uL (4.8-10.8)
[2017-04-01] MEDS ORDERED: Dextrose 5% in Water 1,000 ML IV PRN (07:42)
[2017-04-01] MEDS ORDERED: Dextrose 50% Abboject 50 ML SYRINGE IVP PRN (07:42)
[2017-04-01] MEDS: Cefepime 1 GM, Admixture Fee 1 EACH in Sterile Water 10 ML SLOW IVP SCH ×2 (09:38→22:36)
[2017-04-01] MEDS: Betamethasone 0.1% Cream 15 GM TUBE TOP SCH ×2 (09:38→21:23)
[2017-04-01] MEDS: Enoxaparin Sodium 30 MG/0.3 ML SYRINGE SC SCH (09:39)
--- NOTE | 2017-04-01 10:17 | PRG ---
DATE OF SERVICE: 04/01/2017 SUBJECTIVE: The patient is feeling okay, but is having difficulty coughing up secretions. PHYSICAL EXAMINATION: VITAL SIGNS: Temperature 97.9, pulse 92, respirations 18, O2 sat 100% on room air, blood pressure 14 2/79. HEENT: Unremarkable. NECK: No JVD. LUNGS: Coarse breath sounds. CARDIAC: S1 and S2 regular. ABDOMEN: Soft. EXTREMITIES: No edema. LABORATORY DATA: Sodium 142, potassium 4.1, chloride 120, CO2 13, anion gap 13, BUN 34, creatinine 1 .4, glucose 209. White blood cell count 4.7, hematocrit 26.0, platelet count 119. ASSESSMENT: 1. History of a tracheal stent, now with development of acute bronchitis and left-sided pneumonia. 2. Hyperchloremic metabolic acidosis. 3. Encephalopathy. 4. Renal failure. 5. Atrial fibrillation. 6. Extreme cachexia. PLAN: 1. I will go ahead and add some mucolytics. 2. She would probably benefit from some supplemental bicarbonate therapy to help resolve the hyperch loremic metabolic acidosis. 3. Add EzPAP nebulization treatments. 4. Continue antibiotics.
[2017-04-01] MEDS: Famciclovir 500 MG TAB PO SCH (10:35)
[2017-04-01] MEDS: Sodium Bicarbonate 75 MEQ in Dextrose 5% in Water 1,000 ML IV SCH ×2 (10:43→22:37)
[2017-04-01] MEDS: Insulin Regular 300 UNITS/3 ML VIAL SC PRN ×3 (10:53→21:25)
[2017-04-01] MEDS ORDERED: guaiFENesin/Dextromethorphan 10 ML UDCUP PO SCH (12:00)
[2017-04-01] MEDS: Guaifenesin DM 100-10/5 ML UDCUP PO SCH ×2 (13:13→18:09)
[2017-04-02] MEDS: Guaifenesin DM 100-10/5 ML UDCUP PO SCH ×4 (00:10→17:03)
[2017-04-02] MEDS: Insulin Regular 300 UNITS/3 ML VIAL SC PRN ×3 (05:48→20:22)
[2017-04-02 05:57] LABS: #Lymphocytes 0.4 thou/uL (1.20-3.40); #Monocytes 0.4 thou/uL (0.11-0.59); #Neutrophils 10.6 thou/uL (1.40-6.50); %Eosinophils 0.1 % (0.0-10.0); %Lymphocytes 3.3 % (21.0-51.0); %Monocytes 3.3 % (0.0-10.0); %Neutrophils 93.3 % (42.0-75.0); Hemoglobin 8.6 g/dL (12.0-16.0); Mean Corpuscular HGB CONC 30.1 g/dL (32.0-36.0); Mean Corpuscular Hemoglobin 28.1 pg (27.0-31.0); Mean Corpuscular Volume 93.5 fl (81.0-99.0); Mean Platelet Volume 9.7 fL (7.4-10.4); Platelet Count 115 thou/uL (130-400); RBC Distribution Width 14.4 % (11.5-14.5); Red Blood Cell (RBC) Count 3.07 mill/uL (4.20-5.40); White Blood Cell (WBC) Count 11.4 thou/uL (4.8-10.8)
[2017-04-02 06:01] LABS: Anion Gap 13 mmol/L (10-20); BUN (Urea Nitrogen) 37 mg/dL (9.8-20.1); Calc. Creatinine Clearance 29 mL/min (70-130); Calcium 8.3 mg/dL (7.8-10.44); Carbon Dioxide 14 mmol/L (23-31); Chloride 113 mmol/L (98-107); Estimated GFR-MDRD 37; Glucose 182 mg/dL (83-110); Potassium 4.3 mmol/L (3.5-5.1); Sodium 136 mmol/L (136-145)
--- NOTE | 2017-04-02 08:26 | PRG ---
DATE OF SERVICE: 04/02/2017 SUBJECTIVE: The patient had a good night. She is still coughing. She is still wheezing. She has g ot her breathing treatment on. PHYSICAL EXAMINATION: VITAL SIGNS: Her blood pressure is not in the chart yet. NECK: Supple with no increased JVP or carotid bruit. Carotid had good upstroke with no thyromegaly. COR: Regular rate and rhythm. CHEST: Scattered wheezing and rhonchi. ABDOMEN: Soft, nontender with normoactive bowel sounds. No bruit or organomegaly. EXTREMITIES: Trace edema. She had palpable pedal pulses. SKIN: There is no evidence of ulcers, lesion or rash. NEUROLOGIC: She is awake, alert, and oriented to person, place, and time. LABORATORY DATA: White blood cell 11.4, H&H is 8.6 and 28.7, platelet is 115. BUN is 37, creatinine 1.63. ASSESSMENT: 1. Pneumonia. 2. Atrial fibrillation. 3. Chronic renal insufficiency. 4. History of gastrointestinal bleed. 5. History of tracheal stent. 6. Encephalopathy, improved. PLAN: We will continue the same current treatment for now and follow up with a chest x-ray in the [facility]. Hopefully, the patient will be able to go home in the next few days.
[2017-04-02] MEDS: Famciclovir 500 MG TAB PO SCH (09:06)
[2017-04-02] MEDS: Enoxaparin Sodium 30 MG/0.3 ML SYRINGE SC SCH (09:07)
[2017-04-02] MEDS: Cefepime 1 GM, Admixture Fee 1 EACH in Sterile Water 10 ML SLOW IVP SCH ×2 (09:07→20:19)
[2017-04-02] MEDS: Betamethasone 0.1% Cream 15 GM TUBE TOP SCH ×2 (09:07→22:33)
--- NOTE | 2017-04-02 10:17 | PRG ---
DATE OF SERVICE: 04/02/2017 SUBJECTIVE: The patient is doing reasonably well and had no complaints. OBJECTIVE: VITAL SIGNS: Temperature 98.5, pulse 95, respiration 16, O2 sat 100%, and blood pressure 123/74. HEENT: Unremarkable. NECK: No JVD. CHEST: Clear except for the right side of the chest. Coarse breath sounds. CARDIAC: S1 and S2, regular. ABDOMEN: Soft. EXTREMITIES: No edema. LABORATORY DATA: White blood cell count 11.4, hematocrit 28.7, and platelet count 115. Sodium 136, potassium 4.3, chloride 113, CO2 of 14, BUN 37, creatinine 1.6, and glucose 182. ASSESSMENT: 1. Pneumonia. 2. History of tracheal stent. 3. Hyperchloremic metabolic acidosis. 4. Encephalopathy. 5. Renal failure. 6. Atrial fibrillation. 7. Cachexia. PLAN: 1. Continue antibiotics. 2. Might consider Nephrology consultation. 3. Wean steroids.
[2017-04-03] MEDS: Enoxaparin Sodium 30 MG/0.3 ML SYRINGE SC SCH (08:31)
[2017-04-03] MEDS: Cefepime 1 GM, Admixture Fee 1 EACH in Sterile Water 10 ML SLOW IVP SCH (08:32)
[2017-04-03] MEDS: Betamethasone 0.1% Cream 15 GM TUBE TOP SCH ×2 (08:33→20:40)
[2017-04-03] MEDS: Famciclovir 500 MG TAB PO SCH (08:33)
--- NOTE | 2017-04-03 08:36 | PRG ---
DATE OF SERVICE: 04/03/2017 SUBJECTIVE: The patient had a good night. She is just receiving a breathing treatment. She was leonides se to going home, unfortunately, I have ordered a chest x-ray, however, it was not put in the compute r, therefore, it was not done. Upon evaluation, she is awake, alert, and oriented to person, place a nd time. She denies any complaints. PHYSICAL EXAMINATION: VITAL SIGNS: Her blood pressure is 130/80, pulse 70, respirations 18, temperature 98.3. NECK: Supple. JVD cannot be assessed due to obese neck. Carotid had good upstroke with no thyromeg adam. COR: Regular rate and rhythm. CHEST: A few scattered rhonchi and few wheezing. ABDOMEN: Soft, nontender, obese with normoactive bowel sounds. No bruit or organomegaly. EXTREMITIES: No edema or cyanosis. Palpable pedal pulses. SKIN: There is no evidence of ulceration, lesion, or rash. NEUROLOGIC: She is awake, alert, and oriented to person, place, and time. LABORATORY DATA: She had no lab in the chart. ASSESSMENT: 1. Possible pneumonia. 2. Encephalopathy, resolved. 3. Atrial fibrillation, chronic. 4. Anemia. PLAN: We will get the chest x-ray ordered to compare the last chest x-ray. We also follow up with a CBC and CMP in the morning. Hopefully, if all are okay, she can go home in the next 24 hours. This is ORESTES Conrteras-Lizbet dictating for Dr. Stewart Yoder.
[2017-04-03] MEDS: Guaifenesin DM 100-10/5 ML UDCUP PO SCH ×4 (08:37→17:38)
--- NOTE | 2017-04-03 09:14 | RAD ---
CHEST 2 VIEWS: Date: 04/03/17 HISTORY: Chest pain. Dyspnea. COMPARISON: 03/30/17. FINDINGS: Cardiac silhouette is magnified and enlarged. Pulmonary vasculature is slightly engorged with mild re ticulonodular interstitial prominence. Mediastinum is midline with aortic calcification. Calcified gr anulomata are consistent with healed granulomatous disease. IMPRESSION: 1. CHF. 2. Atherosclerosis. POS: OFF
--- NOTE | 2017-04-03 10:04 | PRG ---
DATE OF SERVICE: 04/03/2017. SUBJECTIVE: She feels better and wants to go home. OBJECTIVE: VITAL SIGNS: Temperature 97.6, pulse 83, respiration 20, O2 sat 95% on room air. HEENT: Unremarkable. NECK: No JVD. LUNGS: Fairly clear without wheezing. CARDIAC: S1 and S2 regular. ABDOMEN: Soft. EXTREMITIES: No edema. LABORATORY DATA: No new labs were done today. Chest x-ray shows no acute changes. ASSESSMENT: 1. Pneumonia. 2. History of tracheal stent. 3. Hyperchloremic metabolic acidosis. 4. Encephalopathy, which is improved. 5. Chronic renal failure. 6. Atrial fibrillation. PLAN: The patient is stable for discharge to home. She should continue on antibiotics for another w [facility] or so, I would suggest Omnicef 600 mg daily for a week. I will change her over to oral steroids and those should also be tapered over a couple of weeks.
[2017-04-03] MEDS: Insulin Regular 300 UNITS/3 ML VIAL SC PRN ×2 (11:55→16:48)
--- NOTE | 2017-04-03 12:41 | PQF ---
CLINICAL DOCUMENTATION IMPROVEMENT CLARIFICATION FORM: ICD-10 Updated PLEASE DO AN ADDENDUM TO THE PROGRESS NOTE WITH ANY DOCUMENTATION UPDATES OR ADDITIONS AND CARRY THROUGH TO DC SUMMARY. THANK YOU. DATE: 04/03/17 ATTN: Dr. Yoder 04/06/17 Dr. Hodges Please exercise your independent, professional judgment in responding to the clarification form. Clinical indicators are provided on the bottom of this form for your review Please check appropriate box(s): [ ] Aspiration Pneumonia [ ] Empirically treating Gram Negative Pneumonia [ ] Empirically treating Anaerobic Pneumonia [ ] Pneumonia secondary to (specify organism / underlying disease) [ ] Simple Pneumonia (community acquired - nosocomial) [ ] Pneumonia of unknown etiology [ ] Other diagnosis [ ] Unable to determine In addition, please specify: Present on Admission (POA): [ ] Yes [ ] No [ ] Unable to determine For continuity of documentation, please document condition throughout progress notes and discharge summary. Thank You. CLINICAL INDICATORS - SIGNS / SYMPTOMS / LABS PULMONOLOGY CONSULT: X-RAY SHOWS A QUESTIONABLE LEFT-SIDED INFILTRATE RETAINED SECRETIONS, L SIDED PNEUMONIA. I HAVE STARTED BROAD-SPECTRUM ANTIBIOTICS. PN 04/03: POSSIBLE PNEUMONIA MICROBIOLOGY: SPUTUM RESP. CULTURE 03/31: PRELIMINARY: GRAM NEGATIVE AMANDA. RISKS: H&P: SIGNIFICANT FOR ATRIAL FIBRILLATION, COPD, DM 2, HTN. CAD. ESOPHAGEAL STRICTURES. AMS. ACUTE KIDNEY INJURY PROBABLY D/T DEHYDRATION. TREATMENT: ORDER 03/31: CEFEPIME 1 GM IV Q 12 HR. DC'D 04/03 CPOE 04/03: OMNICEF 600MG PO DAILY. ORDER 04/03: CXR: CHEST PA & LAT Thank you, Telma (This form is maintained as a part of the permanent medical record) 2015 [employer], [employer]. All Rights Reserved Telma Kim RN, BSN [email or web address] Office: [phone] Dr Yoder taking care of this patient. We were covering on and Mar. [facility]
[2017-04-03] MEDS: predniSONE 20 MG TAB PO SCH (20:40)
[2017-04-04] MEDS: Guaifenesin DM 100-10/5 ML UDCUP PO SCH ×4 (00:03→16:57)
[2017-04-04] MEDS: Insulin Regular 300 UNITS/3 ML VIAL SC PRN ×4 (06:04→20:28)
[2017-04-04] MEDS: Cefdinir 300 MG CAP PO SCH (08:59)
[2017-04-04] MEDS: Famciclovir 500 MG TAB PO SCH (09:00)
[2017-04-04] MEDS: Enoxaparin Sodium 30 MG/0.3 ML SYRINGE SC SCH (09:00)
[2017-04-04] MEDS: predniSONE 20 MG TAB PO SCH ×2 (09:00→20:27)
[2017-04-04] MEDS: Betamethasone 0.1% Cream 15 GM TUBE TOP SCH ×2 (09:06→20:27)
--- NOTE | 2017-04-04 14:10 | PDOC.PN ---
- Subjective Encounter Start Date: 04/04/17 Encounter Start Time: 14:08 Subjective: seen and examined with no new complaint - Objective Vital Signs & Weight: Vital Signs (12 hours) Temp Pulse Resp BP Pulse Ox 04/04/17 11:00 99.2 F 90 16 120/71 98 04/04/17 10:18 93 18 96 04/04/17 08:57 98.2 F 93 18 96 04/04/17 07:31 98.2 F 93 18 123/80 96 04/04/17 06:40 86 18 100 04/04/17 04:00 98.7 F 86 20 169/96 H 100 04/04/17 03:29 85 20 98 Weight Weight 135 lb 1 oz I&O: 04/03/17 04/04/17 04/05/17 06:59 06:59 06:59 Intake Total 720 1375 Balance 720 1375 Result Diagrams: 04/02/17 05:15 04/02/17 05:15 Additional Labs: Accuchecks 04/04/17 04/04/17 04/03/17 11:39 04:54 20:41 POC Glucose 177 H 211 H 267 H 04/03/17 16:46 POC Glucose 243 H Phys Exam - Physical Examination Constitutional: NAD HEENT: PERRLA, moist MMs, sclera anicteric, TM's clear Neck: no nodes, no JVD, supple, full ROM Respiratory: no wheezing, no rales, clear to auscultation bilateral Cardiovascular: RRR, no significant murmur, no rub Gastrointestinal: soft, non-tender, no distention, positive bowel sounds Musculoskeletal: no edema, pulses present Neurological: non-focal, normal sensation, moves all 4 limbs Dx/Plan (1) Altered mental state Code(s): R41.82 - ALTERED MENTAL STATUS, UNSPECIFIED Status: Acute (2) Anemia Code(s): D64.9 - ANEMIA, UNSPECIFIED Status: Acute (3) MOODY (acute kidney injury) Code(s): N17.9 - ACUTE KIDNEY FAILURE, UNSPECIFIED Status: Acute (4) CKD (chronic kidney disease) stage 3, GFR 30-59 ml/min Code(s): N18.3 - CHRONIC KIDNEY DISEASE, STAGE 3 (MODERATE) Status: Acute (5) Metabolic acidemia Code(s): E87.2 - ACIDOSIS Status: Acute (6) Atrial fibrillation and flutter Code(s): I48.91 - UNSPECIFIED ATRIAL FIBRILLATION; I48.92 - UNSPECIFIED ATRIAL FLUTTER Status: Acute - Plan plan discussed w/ family, PT/OT, neonatal social worker BNP to re=evaluate renal and acid/base status -: Further management will be dependent on the clinical status * .
--- NOTE | 2017-04-04 17:46 | EKG ---
Test Reason : Blood Pressure : / mmHG Vent. Rate : 136 BPM Atrial Rate : 147 BPM P-R Int : 000 ms QRS Dur : 076 ms QT Int : 274 ms P-R-T Axes : 000 007 221 degrees QTc Int : 412 ms Atrial fibrillation with rapid ventricular response Nonspecific ST and T wave abnormality , probably digitalis effect Abnormal ECG Confirmed by JAMES REMY, DIANNE (12), city editor ROM SEXTON ([id number]) on 04/04/2017 5:46:08 PM Referred By: Confirmed By:DIANNE RAMIREZ MD
[2017-04-05] MEDS: Guaifenesin DM 100-10/5 ML UDCUP PO SCH ×5 (00:03→23:34)
[2017-04-05] MEDS: Betamethasone 0.1% Cream 15 GM TUBE TOP SCH ×2 (09:31→20:12)
[2017-04-05] MEDS: Famciclovir 500 MG TAB PO SCH (09:37)
[2017-04-05] MEDS: Enoxaparin Sodium 30 MG/0.3 ML SYRINGE SC SCH (09:41)
[2017-04-05] MEDS: Cefdinir 300 MG CAP PO SCH (09:41)
[2017-04-05] MEDS: predniSONE 20 MG TAB PO SCH ×2 (09:41→20:12)
--- NOTE | 2017-04-05 11:39 | PRG ---
DATE OF SERVICE: 04/05/2017 SUBJECTIVE: The patient is seen and examined at bedside. She still have a lot of cough, congestion. No fever. Her appetite is fair. OBJECTIVE: VITAL SIGNS: Blood pressure is 137/79, pulse is 85, temperature is 98.5, respiratory rate is 18, O2 saturation is 97% on room air. HEENT: Her head is atraumatic, normocephalic. Eyes are PERRLA. Sclerae nonicteric. Conjunctivae p inkish. Oral mucosa is moist. NECK: Supple. LUNGS: Crackles over the right lung. No wheezing. HEART: S1, S2, irregularly, irregular. No S3, no S4. ABDOMEN: Soft, nontender, bowel sounds are present. No organomegaly. EXTREMITIES: No clubbing, cyanosis or edema. NEUROLOGIC: She is alert and oriented x4. There is no any sensorimotor deficit present. Cranial ne rves are intact. LABORATORY DATA: None today. IMPRESSION: 1. Most likely pneumonia. The patient is switched to oral antibiotics. She is getting her breathin g treatment, but she is still had a lot of congestion. We will continue her current regimen. 2. Atrial fibrillation with rapid ventricular response, rate controlled at this point. 3. History of tracheal stents. 4. Hyperchloremic metabolic acidosis. We will check the BMP today. 5. Encephalopathy, improved. 6. Chronic renal failure. PLAN: Continue current regimen. Continue breathing treatments. Continue oral antibiotic. We will check her BMP and BNP since it was not done for quite some time and we will make recommendations base d on findings. For now, we would continue current regimen and she should be able to be discharged ho me most likely tomorrow.
[2017-04-05 11:49] LABS: Anion Gap 14 mmol/L (10-20); BUN (Urea Nitrogen) 53 mg/dL (9.8-20.1); Calc. Creatinine Clearance 19 mL/min (70-130); Calcium 9.2 mg/dL (7.8-10.44); Carbon Dioxide 15 mmol/L (23-31); Chloride 107 mmol/L (98-107); Estimated GFR-MDRD 23; Glucose 194 mg/dL (83-110); Potassium 4.9 mmol/L (3.5-5.1); Sodium 131 mmol/L (136-145)
[2017-04-05] MEDS: Insulin Regular 300 UNITS/3 ML VIAL SC PRN ×3 (12:26→20:20)
--- NOTE | 2017-04-05 13:39 | PRG ---
DATE OF SERVICE: 04/05/2017 SUBJECTIVE: Surprisingly, she is still in the hospital. She is doing well, does not like nebulizati on treatments. PHYSICAL EXAMINATION: VITAL SIGNS: Temperature 98.0, pulse 87, respirations 18, O2 saturation 98%, blood pressure 111/57. HEENT: Unremarkable. NECK: No JVD. CHEST: Clear. CARDIAC: S1 and S2 regular. ABDOMEN: Soft. EXTREMITIES: No edema. ASSESSMENT: Bronchitis. PLAN: She remains clear for discharge to home. No additional recommendations.
[2017-04-05] MEDS: Sodium Chloride 0.9% 1,000 ML IV SCH (15:20)
[2017-04-06 05:29] LABS: Anion Gap 14 mmol/L (10-20); BUN (Urea Nitrogen) 53 mg/dL (9.8-20.1); Calc. Creatinine Clearance 20 mL/min (70-130); Calcium 9.1 mg/dL (7.8-10.44); Carbon Dioxide 15 mmol/L (23-31); Chloride 107 mmol/L (98-107); Estimated GFR-MDRD 23; Glucose 196 mg/dL (83-110); Potassium 5.1 mmol/L (3.5-5.1); Sodium 131 mmol/L (136-145)
[2017-04-06] MEDS: Sodium Chloride 0.9% 1,000 ML IV SCH (05:48)
[2017-04-06] MEDS: Insulin Regular 300 UNITS/3 ML VIAL SC PRN (05:48)
[2017-04-06] MEDS: Guaifenesin DM 100-10/5 ML UDCUP PO SCH ×2 (05:48→11:45)
[2017-04-06] MEDS: Enoxaparin Sodium 30 MG/0.3 ML SYRINGE SC SCH (08:41)
[2017-04-06] MEDS: Cefdinir 300 MG CAP PO SCH (08:41)
[2017-04-06] MEDS: predniSONE 20 MG TAB PO SCH (08:42)
[2017-04-06] MEDS: Betamethasone 0.1% Cream 15 GM TUBE TOP SCH (08:42)
[2017-04-06 12:12] VITALS: BP 144/76; TEMP 98.5
--- NOTE | 2017-04-07 11:40 | DIS ---
DATE OF ADMISSION: 03/30/2017 DATE OF DISCHARGE: 04/06/2017 CHIEF COMPLAINT ON ADMISSION: Altered mental status. The history and physical have previously been dictated so I will resume from there. HOSPITAL COURSE: The patient was placed in IMCU bed where her dehydration was quickly addressed with IV fluid resuscitation. Dr. Holt saw the patient in consultation, concerning the atrial fibrillation with RVR and its current management. Over the next 24 hours, Dr. Kaleb Lanza saw the patient as well. His conclusion was that this was encephalopathy and she had retained secretions with left-sided pneumonia, marked cachexia and some mild renal failure. This was improving, however, with the fluid rehydration and she has had a good night. Over the first 24 hours, she was still short-winded, but she was getting her breathing treatments on a frequent basis. She was able to eat breakfast, but remained very weak. She stayed in IMCU. Dr. Holt also saw the patient as requested by consultation. He had counselled the patient about going on anticoagulation for Watchman device, which the patient declined. She has been restarted on Cardizem and echocardiogram was ordered. An MRI was performed for the altered mental status. The screening process revealed that due to tracheal stents, she was not qualified for an MRI. Dr. Ayaz Sumner saw her on 04/01, his plan was to go ahead and add mucolytics to her neb treatments. He also added an EzPAP nebulizer treatments, continued her antibiotics. Her assessment on that day was acute bronchitis and left-sided pneumonia along with hyperchloremic metabolic acidosis. Overall, she felt better, was having difficulty moving secretions. Her vital signs are stable. By 04/02, she has had another good night. She was still coughing, still wheezing. White cell count was 11.4, hemoglobin 8.6, and hematocrit 28.7. Her BUN had improved to 37, creatinine was coming down to 1.63 and continued her current treatment and kept her in IMCU. By 04/03, she had had a good night. Her breathing treatments were being successful. She denies any complaints. Her vital signs have improved. Her encephalopathy is completely resolved at this point. We are repeating chest x-ray prior to discharge. Sound took over care of this patient. At this point, on 04/05, Dr. Sumner felt that she has had a good night. She was stable for discharge and this took place on 04/06. Her diagnosis at the time of discharge was encephalopathy, atrial fibrillation with RVR, COPD, anemia with thrombocytopenia, hyperchloremic metabolic acidosis cleared, renal failure cleared, acute bronchitis with left-sided pneumonia as a source of encephalopathy. She is discharged home in stable condition. She will follow up with Dr. Yoder in 1 week. Her discharge medication will include cefdinir 300 mg b.i.d., diltiazem 180 mg b.i.d., pantoprazole 40 mg daily, prednisone 20 mg b.i.d. with a taper. The time required to review the chart, examine the patient, answer all her questions, then prepare the chart for discharge including the dictation , reconciliation of all her medications, came to 35 minutes and as previously mentioned she will follow up with Dr. Yoder in 1 week. ANGELA
--- NOTE | 2017-04-08 09:52 | PQF ---
CLINICAL DOCUMENTATION IMPROVEMENT CLARIFICATION FORM: ICD-10 Updated PLEASE DO AN ADDENDUM TO THE PROGRESS NOTE WITH ANY DOCUMENTATION UPDATES OR ADDITIONS AND CARRY THROUGH TO DC SUMMARY. THANK YOU. DATE: 04/03/17 ATTN: Dr. Yoder 04/06/17 Dr. Hodges Please exercise your independent, professional judgment in responding to the clarification form. Clinical indicators are provided on the bottom of this form for your review Please check appropriate box(s): [ ] Aspiration Pneumonia [ ] Empirically treating Gram Negative Pneumonia [ ] Empirically treating Anaerobic Pneumonia [ ] Pneumonia secondary to (specify organism / underlying disease) [ ] Simple Pneumonia (community acquired - nosocomial) [ ] Pneumonia of unknown etiology [ ] Other diagnosis [ x ] Unable to determine In addition, please specify: Present on Admission (POA): [ ] Yes [ ] No [ ] Unable to determine For continuity of documentation, please document condition throughout progress notes and discharge summary. Thank You. CLINICAL INDICATORS - SIGNS / SYMPTOMS / LABS PULMONOLOGY CONSULT: X-RAY SHOWS A QUESTIONABLE LEFT-SIDED INFILTRATE RETAINED SECRETIONS, L SIDED PNEUMONIA. I HAVE STARTED BROAD-SPECTRUM ANTIBIOTICS. PN 04/03: POSSIBLE PNEUMONIA MICROBIOLOGY: SPUTUM RESP. CULTURE 03/31: PRELIMINARY: GRAM NEGATIVE AMANDA. RISKS: H&P: SIGNIFICANT FOR ATRIAL FIBRILLATION, COPD, DM 2, HTN. CAD. ESOPHAGEAL STRICTURES. AMS. ACUTE KIDNEY INJURY PROBABLY D/T DEHYDRATION. TREATMENT: ORDER 03/31: CEFEPIME 1 GM IV Q 12 HR. DC'D 04/03 CPOE 04/03: OMNICEF 600MG PO DAILY. ORDER 04/03: CXR: CHEST PA & LAT Thank you, Telma (This form is maintained as a part of the permanent medical record) 2015 [employer], [employer] All Rights Reserved Telma Kim RN, BSN [email or web address] Office: [phone] [facility]
== END 2017-04-06 14:58 | disposition home or self-care (01) | DRG 193 ==
LOC: ERS 01:02 → IMCU/EMU 07:12 → T4-B 04-01 18:22
PROVIDERS: ADMIT Specialist; ATTEND Specialist
DX: J18.9 Pneumonia, unspecified organism (principal); G93.40 Encephalopathy, unspecified; N17.9 Acute kidney failure, unspecified; E87.2 Acidosis; E11.22 Type 2 diabetes mellitus with diabetic chronic kidney disease; D69.6 Thrombocytopenia, unspecified; E87.8 Other disorders of electrolyte and fluid balance, not elsewhere classified; N18.3 Chronic kidney disease, stage 3 (moderate); R64 Cachexia; J44.0 Chronic obstructive pulmonary disease with (acute) lower respiratory infection; I48.2 Chronic atrial fibrillation; E86.0 Dehydration; J39.8 Other specified diseases of upper respiratory tract; D63.1 Anemia in chronic kidney disease; I12.9 Hypertensive chronic kidney disease with stage 1 through stage 4 chronic kidney disease, or unspecified chronic kidney disease; J44.9 Chronic obstructive pulmonary disease, unspecified; Z87.01 Personal history of pneumonia (recurrent); Z87.891 Personal history of nicotine dependence; J20.9 Acute bronchitis, unspecified; K27.9 Peptic ulcer, site unspecified, unspecified as acute or chronic, without hemorrhage or perforation; Z86.73 Personal history of transient ischemic attack (TIA), and cerebral infarction without residual deficits; Z68.26 Body mass index [BMI] 26.0-26.9, adult
CPT/HCPCS: 36415; 36416; 51701; 70450; 71045; 71046; 80048; 80053; 81003; 82553; 83605; 83690; 83735; 83880; 84443; 84484; 85025; 85610; 87070; 87077; 87186; 87205; 93005; 93306; 94640; 96361; 96365; 96366; 96376; A4216; A4353; C9113; G8978-GP-CM; G8979-GP-CK; J0692; J1650; J2920; J7050; J7070; J7506; J7620

== ENCOUNTER 2017-04-24 16:34 | Emergency (ER) | payer MEDICARE, MEDICAID ==
[2017-04-24 17:53] LABS: #Eosinphils 0.1 thou/uL (0.0-0.7); #Lymphocytes 0.9 thou/uL (1.20-3.40); #Monocytes 0.4 thou/uL (0.11-0.59); #Neutrophils 1.4 thou/uL (1.40-6.50); %Basophils 0.8 % (0.0-1.0); %Eosinophils 2.2 % (0.0-10.0); %Lymphocytes 32.9 % (21.0-51.0); %Monocytes 13.3 % (0.0-10.0); %Neutrophils 50.8 % (42.0-75.0); Hemoglobin 8.3 g/dL (12.0-16.0); Mean Corpuscular HGB CONC 31.8 g/dL (32.0-36.0); Mean Corpuscular Hemoglobin 30.3 pg (27.0-31.0); Mean Corpuscular Volume 95.4 fl (81.0-99.0); Mean Platelet Volume 8.4 fL (7.4-10.4); Platelet Count 109 thou/uL (130-400); RBC Distribution Width 15.6 % (11.5-14.5); Red Blood Cell (RBC) Count 2.72 mill/uL (4.20-5.40); White Blood Cell (WBC) Count 2.8 thou/uL (4.8-10.8)
[2017-04-24] MEDS ORDERED: Furosemide 40 MG/4 ML VIAL ONE (18:26)
[2017-04-24 18:30] LABS: Anion Gap 11 mmol/L (10-20); BUN (Urea Nitrogen) 14 mg/dL (9.8-20.1); Calc. Creatinine Clearance 0 mL/min (70-130); Calcium 8.4 mg/dL (7.8-10.44); Carbon Dioxide 19 mmol/L (23-31); Chloride 111 mmol/L (98-107); Estimated GFR-MDRD 64; Glucose 106 mg/dL (83-110); Potassium 4.6 mmol/L (3.5-5.1); Sodium 136 mmol/L (136-145)
== END 2017-04-24 19:05 | disposition home or self-care (01) ==
LOC: ERS 16:34
DX: D64.9 Anemia, unspecified (principal); H81.10 Benign paroxysmal vertigo, unspecified ear; R60.0 Localized edema; I48.91 Unspecified atrial fibrillation; J44.9 Chronic obstructive pulmonary disease, unspecified; E11.9 Type 2 diabetes mellitus without complications; I10 Essential (primary) hypertension; K21.9 Gastro-esophageal reflux disease without esophagitis; Z87.891 Personal history of nicotine dependence; Z79.899 Other long term (current) drug therapy
CPT/HCPCS: 80048; 85025; 96374; J1940

== ENCOUNTER 2017-09-28 13:56 | Outpatient (CLI) | payer MEDICARE, MEDICAID | END 2017-09-28 13:57 | disposition home or self-care (01) | LOC: BICMAMMO 13:56 | PROVIDERS: ATTEND Specialist | DX: Z12.31 Encounter for screening mammogram for malignant neoplasm of breast (principal); Z80.3 Family history of malignant neoplasm of breast | CPT/HCPCS: 77063; 77067 ==

== ENCOUNTER 2018-02-24 15:57 | Inpatient (IN) | payer MEDICARE, MEDICAID ==
--- NOTE | 2018-02-24 17:31 | RAD ---
TWO VIEW CHEST: 02/24/18 COMPARISON: 04/03/17 INDICATION: Cough. FINDINGS: There is a rounded density of the lateral right lower lung zone. The cardiac silhouette and pulmonary vasculature are enlarged. No obvious effusion or discrete pneumothorax. IMPRESSION: Rounded density at the lateral right lung base. This could either reflect a small area of pneumonia o r a nodule/mass of the right lower lung. Recommend appropriate treatment for pneumonia with short ter m radiographic followup. If finding persists, followup chest radiograph, at that point, CT of chest w ould be necessary. Evidence of CHF. Code LN POS: DAVID
[2018-02-24 17:58] LABS: #Basophils 0.1 thou/uL (0.0-0.2); #Eosinphils 0.1 thou/uL (0.0-0.7); #Monocytes 0.5 thou/uL (0.11-0.59); #Neutrophils 4.9 thou/uL (1.40-6.50); %Basophils 0.9 % (0.0-1.0); %Eosinophils 1.1 % (0.0-10.0); %Lymphocytes 15.3 % (21.0-51.0); %Monocytes 8.2 % (0.0-10.0); %Neutrophils 74.6 % (42.0-75.0); Hemoglobin 7.6 g/dL (12.0-16.0); Mean Corpuscular HGB CONC 32.6 g/dL (32.0-36.0); Mean Corpuscular Hemoglobin 30.2 pg (27.0-31.0); Mean Corpuscular Volume 92.7 fL (78.0-98.0); Mean Platelet Volume 7.8 fL (7.4-10.4); Platelet Count 140 thou/uL (130-400); RBC Distribution Width 15.3 % (11.5-14.5); Red Blood Cell (RBC) Count 2.52 mill/uL (4.20-5.40); White Blood Cell (WBC) Count 6.6 thou/uL (4.8-10.8)
[2018-02-24 18:23] LABS: ALT (SGPT) 10 U/L (8-55); AST (SGOT) 24 U/L (5-34); Albumin 3.2 g/dL (3.4-4.8); Alkaline Phosphatase 35 U/L (40-150); Anion Gap 14 mmol/L (10-20); BUN (Urea Nitrogen) 27 mg/dL (9.8-20.1); Bilirubin, Total 0.6 mg/dL (0.2-1.2); Calc. Creatinine Clearance 0 mL/min (70-130); Calcium 8.7 mg/dL (7.8-10.44); Carbon Dioxide 21 mmol/L (23-31); Chloride 109 mmol/L (98-107); Estimated GFR-MDRD 39; Globulin 3.9 g/dL (2.4-3.5); Glucose 62 mg/dL (83-110); Potassium 4.1 mmol/L (3.5-5.1); Protein, Total 7.1 g/dL (6.0-8.3); Sodium 140 mmol/L (136-145)
[2018-02-24] MEDS ORDERED: Azithromycin 500 MG VIAL ONE (20:31)
[2018-02-24] MEDS ORDERED: Furosemide 40 MG/4 ML VIAL ONE (20:31)
[2018-02-25] MEDS ORDERED: Acetaminophen 325 MG TAB PO PRN (00:01)
[2018-02-25] MEDS ORDERED: Ondansetron ODT 4 MG TAB SL PRN (00:01)
[2018-02-25] MEDS ORDERED: Ondansetron PF 4 MG/2 ML Vial IVP PRN (00:01)
[2018-02-25 01:17] VITALS: BMI 31.1
--- NOTE | 2018-02-25 01:38 | HP ---
CHIEF COMPLAINT: Chronic bronchitis with early left lower lobe pneumonia, fever. HISTORY OF PRESENT ILLNESS: The patient is a 77-year-old female who two days ago began to have ongoing cough, fever, congestion. Because she failed to get better, her daughter brought her to the office for further evaluation. There rales were noted in her left lower lobe. However, her temperature also had been up to 101 in the office. We attempted to admit her directly, but there were no beds, such that she was referred to the emergency room. There in the ER, her chest x-ray looked as if she had some pulmonary edema. There was also a possible infiltrate of early pneumonia, which needs to be followed up. Dr. Yoder was contacted for admission of this patient. PAST MEDICAL HISTORY: Significant for atrial fibrillation. However, she cannot be anticoagulated due to recurrent GI bleed. She has COPD, diabetes type 2, this was felt to be medication induced from steroids in the past. She also has hypertension, severe GERD, abdominal hernia, tracheomalacia with esophageal strictures, pancreatitis, colonic polyps, history of CHF, history of peptic ulcer disease, history of coronary artery disease, status post coronary stents. She has also had adult respiratory distress syndrome with recurrent pneumonia. Vitamin D deficiency. PAST SURGICAL HISTORY: Includes cholecystectomy, removal of colon polyps, tracheal stent placement, Billroth II gastric surgery, section, and the aforementioned cardiac stents. The sections x3. She has also had tubal ligation. She has had cyst removed out of her stomach twice. She had a tracheostomy due to fluid in her lungs back in 2007. PSYCHIATRIC HISTORY: Negative. SOCIAL HISTORY: She is a former smoker, quit smoking less than 10 years ago with greater than 30-pack years. She denies alcohol or illicit drug use. She lives at home with her family. FAMILY HISTORY: Includes diabetes and hypertension. MEDICATION: At the time of admission includes: 1. Nebulizer for albuterol. 2. Fosamax 70 mg weekly. 3. Pulmicort 0.5 mg nebulize b.i.d. 4. Dexilant 60 mg daily. 5. Vitamin D 19668 units weekly. 6. Lasix 40 mg daily. 7. Glipizide 2.5 mg once a day. 8. Losartan 25 mg daily. 9. Spironolactone 25 mg daily. ALLERGIES: INCLUDE ASPIRIN, CEPHALOSPORINS, CIPRO, MORPHINE SULFATE, PENICILLIN, AND TRAMADOL. REVIEW OF SYSTEMS: At the time of admission, CONSTITUTIONAL: She has had malaise, chills, fever with severe cough. HEENT: Nares and pharynx with green phlegm. TMs clear. NECK: Supple. CHEST: With diffuse rhonchi and rales in the left lower lobe. BREASTS: Deferred. CHEST: With wheezing, coughing, and congestion. HEART: Denies palpitations or chest pain. ABDOMEN: Has had nausea, occasional vomiting. No diarrhea. : Denies dysuria, urgency, frequency, or blood in urine or stool. SKIN: Without acute rashes or lesions. MUSCULOSKELETAL: With diffuse aches and pains in the knees, but no other specific painful joints or limited range of motion. She does say that there is swelling in the left breast and has had a normal mammogram. NEUROLOGIC: Denies headaches or areas of paresthesia, hypesthesia. PHYSICAL EXAMINATION: At the time of admission, GENERAL: This is a well-developed, well-nourished, elderly female, alert, oriented, cooperative. HEENT: Normocephalic, atraumatic. Pupils equal, round, reactive to light with diminished reactivity. Arcus senilis bilaterally. TMs clear. Nares with green discharge. Pharynx with green postnasal drip and green phlegm. NECK: Supple. CHEST: With rales on the left lower lobe and diffuse rhonchi. BREASTS: Deferred. HEART: Regular rate and rhythm, tachycardic. ABDOMEN: Soft, nontender. : Deferred. EXTREMITIES: With mild lower extremity edema, 1 to 2+. Normal range of motion. SKIN: Without acute rashes or lesions. NEUROLOGIC: Gait and cerebral function intact. Sensory exam is grossly intact. Mental status is at baseline. LABORATORY WORK: On admission, WBC 6.6, hemoglobin 7.6, hematocrit 23.4, platelets at 140. Sodium is 140, potassium 4.1, CO2 21, BUN 27, creatinine 1.55, glucose 62, lactic acid 1.2, calcium 8.7. UA is pending. Chest x-ray shows evidence of CHF with possible early infiltrate in the right lung. Followup x-rays requested. ASSESSMENT: 1. Febrile respiratory illness, possible pneumonia. 2. Chronic obstructive pulmonary disease. 3. Congestive heart failure. 4. Anemia, which is chronic and old. 5. Atrial fibrillation. 6. Severe gastroesophageal reflux disease with esophageal stricture. PLAN: IV antibiotics. Await blood cultures. Serial neb treatments and repeat chest x-ray and reassessment. Job ID: [id number]
[2018-02-25 05:18] LABS: #Eosinphils 0.1 thou/uL (0.0-0.7); #Lymphocytes 0.8 thou/uL (1.20-3.40); #Monocytes 0.5 thou/uL (0.11-0.59); #Neutrophils 2.8 thou/uL (1.40-6.50); %Basophils 0.3 % (0.0-1.0); %Eosinophils 2.5 % (0.0-10.0); %Lymphocytes 19.1 % (21.0-51.0); %Monocytes 11.9 % (0.0-10.0); %Neutrophils 66.2 % (42.0-75.0); Hemoglobin 7.1 g/dL (12.0-16.0); Mean Corpuscular HGB CONC 31.2 g/dL (32.0-36.0); Mean Corpuscular Hemoglobin 28.7 pg (27.0-31.0); Mean Platelet Volume 8.5 fL (7.4-10.4); Platelet Count 100 thou/uL (130-400); RBC Distribution Width 15.2 % (11.5-14.5); Red Blood Cell (RBC) Count 2.48 mill/uL (4.20-5.40); White Blood Cell (WBC) Count 4.3 thou/uL (4.8-10.8)
[2018-02-25 05:33] LABS: Anion Gap 15 mmol/L (10-20); BUN (Urea Nitrogen) 27 mg/dL (9.8-20.1); Calc. Creatinine Clearance 37 mL/min (70-130); Calcium 8.2 mg/dL (7.8-10.44); Carbon Dioxide 18 mmol/L (23-31); Chloride 111 mmol/L (98-107); Estimated GFR-MDRD 43; Glucose 69 mg/dL (83-110); Sodium 140 mmol/L (136-145)
[2018-02-25] MEDS ORDERED: Dextrose 5% in Water 1,000 ML IV PRN (08:53)
[2018-02-25] MEDS ORDERED: Dextrose 50% Abboject 50 ML SYRINGE IVP PRN (08:53)
[2018-02-25] MEDS ORDERED: Insulin Regular 300 UNITS/3 ML VIAL SC PRN (08:53)
[2018-02-25] MEDS ORDERED: Ondansetron PF 4 MG/2 ML Vial SLOW IVP PRN (08:57)
[2018-02-25] MEDS ORDERED: Furosemide 40 MG/4 ML VIAL SLOW IVP SCH (09:00)
[2018-02-25] MEDS: Losartan 25 MG TAB PO SCH (10:52)
[2018-02-25] MEDS: Potassium Chloride 20 MEQ TAB PO SCH (10:53)
[2018-02-25] MEDS: Benzonatate 100 MG CAP PO SCH ×3 (10:53→20:31)
[2018-02-25] MEDS: glipiZIDE 5 MG TAB PO SCH (10:53)
--- NOTE | 2018-02-25 15:00 | RAD ---
CHEST 2 VIEWS: COMPARISON: 02/24/2018. HISTORY: Congestive heart failure. FINDINGS: Persistent cardiomegaly and atherosclerosis of the aorta. The degree of pulmonary vascular prominenc e has slightly decreased. The degree of interstitial opacification has also slightly decreased. The previously noted focal opacity in the lateral aspect of the right lung base is not appreciated. The re is no pneumothorax or osseous abnormality. IMPRESSION: 1. Improving congestive heart failure. Continued surveillance to ensure resolution is recommended. 2. Cardiomegaly. 3. Atherosclerosis. POS: DAVID
[2018-02-25] MEDS: Azithromycin 500 MG in Sodium Chloride 0.9% 250 ML 250 ML IVPB SCH (20:32)
[2018-02-25] MEDS: Acetaminophen 325 MG TAB PO PRN (20:32)
[2018-02-26 07:45] LABS: #Eosinphils 0.1 thou/uL (0.0-0.7); #Lymphocytes 0.9 thou/uL (1.20-3.40); #Monocytes 0.6 thou/uL (0.11-0.59); #Neutrophils 4.3 thou/uL (1.40-6.50); %Basophils 0.8 % (0.0-1.0); %Eosinophils 1.8 % (0.0-10.0); %Lymphocytes 14.7 % (21.0-51.0); %Monocytes 10.5 % (0.0-10.0); %Neutrophils 72.2 % (42.0-75.0); Hemoglobin 7.3 g/dL (12.0-16.0); Mean Corpuscular Hemoglobin 29.7 pg (27.0-31.0); Mean Corpuscular Volume 95.7 fL (78.0-98.0); Mean Platelet Volume 8.7 fL (7.4-10.4); Platelet Count 112 thou/uL (130-400); Red Blood Cell (RBC) Count 2.47 mill/uL (4.20-5.40); White Blood Cell (WBC) Count 5.9 thou/uL (4.8-10.8)
[2018-02-26 07:58] LABS: Anion Gap 11 mmol/L (10-20); BUN (Urea Nitrogen) 24 mg/dL (9.8-20.1); Calc. Creatinine Clearance 35 mL/min (70-130); Calcium 8.9 mg/dL (7.8-10.44); Carbon Dioxide 22 mmol/L (23-31); Cardiac Risk 1.8 (Less than 4.5); Chloride 110 mmol/L (98-107); Cholesterol 132 mg/dl (< 200 Desired); Estimated GFR-MDRD 40; Glucose 72 mg/dL (83-110); HDL Cholesterol 74 mg/dL (>60 Neg Risk); LDL Cholesterol, Calculated 49 mg/dL; Potassium 4.8 mmol/L (3.5-5.1); Sodium 138 mmol/L (136-145); Triglycerides 45 mg/dL (Less than 150)
[2018-02-26] MEDS: Benzonatate 100 MG CAP PO SCH ×3 (08:12→21:24)
[2018-02-26] MEDS: Potassium Chloride 20 MEQ TAB PO SCH (08:13)
[2018-02-26] MEDS: Losartan 25 MG TAB PO SCH (08:13)
[2018-02-26] MEDS: glipiZIDE 5 MG TAB PO SCH (08:13)
[2018-02-26] MEDS: Acetaminophen 325 MG TAB PO PRN ×2 (17:02→22:46)
[2018-02-26] MEDS: Azithromycin 500 MG in Sodium Chloride 0.9% 250 ML 250 ML IVPB SCH (21:20)
[2018-02-27 08:26] VITALS: BP 117/64; TEMP 98.2
[2018-02-27] MEDS: glipiZIDE 5 MG TAB PO SCH (08:44)
[2018-02-27] MEDS: Potassium Chloride 20 MEQ TAB PO SCH (08:45)
[2018-02-27] MEDS: Losartan 25 MG TAB PO SCH (08:45)
[2018-02-27] MEDS: Benzonatate 100 MG CAP PO SCH (08:46)
--- NOTE | 2018-03-02 12:15 | PQF ---
RANDI MUNROE MICHAEL E MD [id number] T4-A- 4410 [id number] CLINICAL DOCUMENTATION IMPROVEMENT CLARIFICATION FORM: ICD-10 Updated PLEASE DO AN ADDENDUM TO THE PROGRESS NOTE WITH ANY DOCUMENTATION UPDATES OR ADDITIONS AND CARRY THROUGH TO DC SUMMARY. THANK YOU. DATE: 03-02-18 ATTN: DR. DIANNE GRANT Please exercise your independent, professional judgment in responding to the clarification form. Clinical indicators are provided on the bottom of this form for your review Please check appropriate box(s): HEART FAILURE: A. TYPE: [ ] Systolic / HFrEF [ ] Diastolic / HFpEF [ x ] Combined Systolic / Diastolic B. ACUITY [ ] Acute [ ] Acute on Chronic [ x ] Chronic [ ] Other diagnosis [ ] Unable to determine In addition, please specify: Present on Admission (POA): [ x ] Yes [ ] No [ ] Unable to determine For continuity of documentation, please document condition throughout progress notes and discharge summary. Thank You. CLINICAL INDICATORS - SIGNS / SYMPTOMS / LABS 1-16 H&P (RUDY): * ER - CXR LOOKED IF SHE HAD SOME PULMONARY EDEMA. * HX OF CHF; HTN; CAD S/P STENTS * MILD LOWER EXTREMITY EDEMA 1-2+ 1-16 CXR: ROUNDED DENSITY AT THE LATERAL RIGHT LUNG BASE. THIS COULD EITHER REFLECT A SMALL MICHAEL OF PNA OF A NODULE/MASS OF RIGHT LOWER LUNG. EVIDENCE OF CHF 1-17 CXR: IMPROVING CHF RISKS: 1-16 H&P (RUDY): * HX OF CHF; HTN; CAD S/P STENTS TREATMENTS: MAR: LASIX IVP - COZAAR 02-25 / 02-26 / 02-27 SERIAL NEB TREATMENTS THANK YOU, AMBER (This form is maintained as a part of the permanent medical record) 2015 [employer]. All Rights Reserved Amber Charles RN, BS [email or web address] Cell [facility]
--- NOTE | 2018-03-02 12:31 | PQF ---
RANDI MUNROE MICHAEL E MD [id number] T4-A- 4410 [id number] CLINICAL DOCUMENTATION IMPROVEMENT CLARIFICATION FORM: ICD-10 Updated PLEASE DO AN ADDENDUM TO THE PROGRESS NOTE WITH ANY DOCUMENTATION UPDATES OR ADDITIONS AND CARRY THROUGH TO DC SUMMARY. THANK YOU. DATE: 03-02-18 ATTN: DR. DIANNE GRANT Please exercise your independent, professional judgment in responding to the clarification form. Clinical indicators are provided on the bottom of this form for your review Please check appropriate box(s): [ ] Acute Renal Failure (ARF) / Acute Kidney Injury (MOODY) [ ] Acute on Chronic Renal Failure please specify Stage of CKD (see below) [ x ] CKD without ARF/MODOY please specify Stage of CKD___3 [ ] Other diagnosis [ ] Unable to determine In addition, please specify: Present on Admission (POA): [ x ] Yes [ ] No [ ] Unable to determine National Kidney Foundation Guidelines for CKD Staging Stage I Kidney damage with normal or increased GFRGFR > 90 Stage IIKidney damage with mildly decreased GFRGFR 60-89 Stage III Kidney damage with moderately decreased GFRGFR 30-59 Stage IVKidney damage with severely decreased GFRGFR 16-29 Stage VKidney failure GFR<15 ESRDEnd Stage Renal Disease On dialysis Acute Renal Failure/Acute Kidney Failure defined as: Increases in SCr by (>) 0.3 mg/dl within 48 hours OR- Increases in SCr by (>) 1.5 times baseline, known or presumed to have occurred within the prior 7 days OR- Urine volume < 0.5 ml/kg/hour for 6 hours (KDIGO supplement 2012 for RIFLE/TRUNG criteria) For continuity of documentation, please document condition throughout progress notes and discharge summary. Thank You. CLINICAL INDICATORS - SIGNS / SYMPTOMS / LABS 1-16 H&P (RDUY): * MILD LOWER EXTREMITY EDEMA 1-2+ LABS: BUN CREAT GFR 1-16 27 1.55 39 1-17 27 1.45 43 -18 24 1.54 40 RISKS: 1-16 H&P (GRANT): * HX OF CHF; HTN; CAD S/P STENTS * DX: POSSIBLE PNA; CHF; CHRONIC ANEMIA; A-FIB; COPD TREATMENTS: MAR: ZITHROMAX IV 02-25 LASIX IVP 02-25 COZAAR 02-25 / 02-27 SERIAL NEB TREATMENTS 02-26 THANK YOU, AMBER (This form is maintained as a part of the permanent medical record) 2015 [employer]. All Rights Reserved Amber Charles RN, BS [email or web address] Cell [facility]
== END 2018-02-27 09:35 | disposition home or self-care (01) | DRG 194 ==
LOC: ERS 15:57 → T4-A 20:08 → OBSVTOIN 02-25 16:56
PROVIDERS: ADMIT Specialist; ATTEND Specialist
DX: J18.9 Pneumonia, unspecified organism (principal); J44.0 Chronic obstructive pulmonary disease with (acute) lower respiratory infection; I50.42 Chronic combined systolic (congestive) and diastolic (congestive) heart failure; I13.0 Hypertensive heart and chronic kidney disease with heart failure and stage 1 through stage 4 chronic kidney disease, or unspecified chronic kidney disease; I48.91 Unspecified atrial fibrillation; E11.9 Type 2 diabetes mellitus without complications; K21.9 Gastro-esophageal reflux disease without esophagitis; I25.10 Atherosclerotic heart disease of native coronary artery without angina pectoris; E55.9 Vitamin D deficiency, unspecified; D64.9 Anemia, unspecified; K22.2 Esophageal obstruction; N18.3 Chronic kidney disease, stage 3 (moderate); Z90.49 Acquired absence of other specified parts of digestive tract; Z86.010 Personal history of colon polyps; Z87.11 Personal history of peptic ulcer disease; Z98.61 Coronary angioplasty status; Z98.890 Other specified postprocedural states; Z87.891 Personal history of nicotine dependence; Z79.899 Other long term (current) drug therapy; Z88.5 Allergy status to narcotic agent; Z88.8 Allergy status to other drugs, medicaments and biological substances; Z88.1 Allergy status to other antibiotic agents; Z88.0 Allergy status to penicillin
CPT/HCPCS: 36415; 36416; 71046; 80048; 80053; 80061; 83605; 85025; 87040; 87804; 94640; 96365; 96375; J0456; J1940; J2405; J7050; J7620

== ENCOUNTER 2018-08-02 15:40 | Outpatient (CLI) | payer MEDICARE, MEDICAID ==
--- NOTE | 2018-08-02 16:02 | RAD ---
EXAM: 4 views of the right knee HISTORY: Knee pain COMPARISON: 11/06/2016 FINDINGS: No knee effusion is seen. There is no evidence of acute fracture or dislocation. Severe tri compartmental degenerative changes are seen. There is calcification in the medial and lateral menisci. No soft tissue swelling is present. IMPRESSION: Severe degenerative changes without evidence of acute osseous abnormality.
--- NOTE | 2018-08-02 16:03 | RAD ---
EXAM: 2 views of the right hip HISTORY: Right hip pain COMPARISON: None FINDINGS: 2 views of the right hip shows no evidence of acute fracture or dislocation. Mild degenerat rula changes are seen. No soft tissue swelling is present. IMPRESSION: No evidence of acute osseous abnormality.
== END 2018-08-02 15:41 | disposition home or self-care (01) ==
LOC: BICRAD 15:40
PROVIDERS: ATTEND Specialist
DX: M25.551 Pain in right hip (principal); M25.561 Pain in right knee; M17.11 Unilateral primary osteoarthritis, right knee

== ENCOUNTER 2019-02-17 08:33 | Day surgery (SDC) | payer MEDICARE, MEDICAID ==
[2019-02-17] MEDS ORDERED: Sodium Chloride 0.9% 20 ML ONE (08:54)
[2019-02-17] MEDS ORDERED: diphenhydrAMINE 25 MG CAP PO PRN (10:12)
[2019-02-17] MEDS ORDERED: Acetaminophen 500 MG TAB PO PRN (10:12)
[2019-02-17 16:11] VITALS: BP 184/86; TEMP 98.5
== END 2019-02-17 16:31 | disposition home or self-care (01) ==
LOC: ONC/OP 08:33
PROVIDERS: ATTEND Internal Medicine Hematology & Oncology
PROC: 30233N1 Transfusion of Nonautologous Red Blood Cells into Peripheral Vein, Percutaneous Approach (ICD-10-PCS; principal; 2019-02-17)
DX: D64.9 Anemia, unspecified (principal); D69.6 Thrombocytopenia, unspecified
CPT/HCPCS: 36430; 86850; 86870; 86880; 86900; 86901; 86905; 86922; 99211; G0463; P9016; Q0163

== ENCOUNTER 2019-03-16 10:03 | Emergency (ER) | payer MEDICARE, MEDICAID ==
--- NOTE | 2019-03-16 11:26 | ULT ---
RIGHT UPPER EXTREMITY VENOUS DOPPLER ULTRASOUND: HISTORY: Right arm pain and swelling TECHNIQUE: Grayscale color-flow and spectral Doppler imaging of the deep venous systems of the right upper extre mity was performed FINDINGS: There is good flow, compression and normal spectral waveforms in the internal jugular, subclavian, ax illary, brachial, radial, ulnar, basilic and cephalic veins. IMPRESSION: No evidence of DVT in the right upper extremity.
[2019-03-16] MEDS ORDERED: traMADol HCl 50 MG TAB ONE (12:24)
== END 2019-03-16 12:33 | disposition home or self-care (01) ==
LOC: ERS 10:03
DX: M79.89 Other specified soft tissue disorders (principal); I48.91 Unspecified atrial fibrillation; J44.9 Chronic obstructive pulmonary disease, unspecified; K21.9 Gastro-esophageal reflux disease without esophagitis; Z87.891 Personal history of nicotine dependence; Z79.899 Other long term (current) drug therapy

== ENCOUNTER 2019-04-06 08:59 | Outpatient (CLI) | payer MEDICARE, MEDICAID ==
--- NOTE | 2019-04-06 11:54 | ULT ---
EXAM: Pelvic ultrasound with hepatic Doppler evaluation PROVIDED CLINICAL HISTORY: Chronic bilateral hepatitis. COMPARISON: None FINDINGS: The liver appears small in size with coarsened echotexture and suggested mild nodular contour which m ay be related to chronic liver disease and cirrhosis with fatty infiltration. A hypoechoic mass is seen in the lateral aspect of the right hepatic lobe which measures 3.1 cm. Further evaluation with C T scan abdomen with IV contrast is recommended for further evaluation. No additional hepatic lesion is appreciated. A shadowing calcified granuloma is seen in the right hepatic lobe. The spleen is normal in size, but there are prominent serpiginous anechoic structures demonstrating f low which are likely related to adjacent splenic varices. Visualized proximal abdominal aorta is normal in caliber. Pancreas is mostly obscured by bowel gas. The IVC is mildly prominent. The gallbladder is not visualized and surgically absent by reported history. Common duct measures 0.9 cm in diameter which is within normal limits for postcholecystectomy changes. Hepatic Doppler evaluation with spectral analysis: Arterial waveforms are seen in the hepatic and splenic arteries. Normal directional flow is seen with in the portal, hepatic, and splenic veins. However, the venous flow within the splenic, hepatic, and portal veins does appear more pulsatile than typically expected. IMPRESSION: 1. Small size of the liver with heterogeneous appearance which could be related to chronic liver dise ase and cirrhosis. In addition, there is a hypoechoic mass in the lateral aspect of the right hepatic lobe. CT scan of the abdomen with IV contrast is recommended for further evaluation. 2. Dilated tubular serpiginous structures demonstrate flow within the splenic hilum likely related to splenic varices. 3. Normal directional flow within the portal, splenic, and hepatic veins. However, there is a greater degree of pulsatile flow within these venous structures and typically expected. 4. Cholecystectomy.
== END 2019-04-06 09:00 | disposition home or self-care (01) ==
LOC: SCSULT 08:59
PROVIDERS: ATTEND Internal Medicine Gastroenterology
DX: B18.2 Chronic viral hepatitis C (principal); I80.9 Phlebitis and thrombophlebitis of unspecified site; D64.9 Anemia, unspecified; R16.0 Hepatomegaly, not elsewhere classified; Z90.49 Acquired absence of other specified parts of digestive tract
CPT/HCPCS: 76705

== ENCOUNTER 2019-04-14 12:47 | Outpatient (CLI) | payer MEDICARE, MEDICAID ==
[2019-04-14] MEDS ORDERED: Magnevist 469MG/ML 20 ML VIAL ONE (14:43)
--- NOTE | 2019-04-14 15:48 | MRI ---
MRI ABDOMEN WITH AND WITHOUT IV CONTRAST: HISTORY: Chronic viral hepatitis, liver mass. FINDINGS: Correlation is made with the hepatic ultrasound of 04/06/2019. There is a 3 x 2 x 3 cm mass in the anterior aspect of the dome of the right lobe of the liver which has low T2 signal and peripheral hyperintense rim and delayed/persistent postcontrast enhancement. N o abnormal biliary ductal dilatation is seen. The patient is post cholecystectomy. There are spleni c varices. The spleen, however, has a normal appearance and no evidence of splenomegaly (measures 8 .5 cm). The pancreas, adrenal glands, and kidneys are normal. No free fluid or lymphadenopathy is seen in th e abdomen. There is no evidence of aneurysmal dilatation of the abdominal aorta. The bone marrow si gnal is normal. There are degenerative changes and mild dextroscoliosis of the lumbar spine. IMPRESSION: 1. Hepatic mass may either be due to metastasis or cholangiocarcinoma, less likely HCC. Correlation with serum AFP is recommended. 2. 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 This exam was interpreted in consultation with Dr. Ramsey Musa who concurs. POS: [facility]
== END 2019-04-14 12:48 | disposition home or self-care (01) ==
LOC: BICMRI 12:47
PROVIDERS: ATTEND Physician Assistant Medical
DX: B18.2 Chronic viral hepatitis C (principal); R16.0 Hepatomegaly, not elsewhere classified; I86.8 Varicose veins of other specified sites
CPT/HCPCS: 74183; 82565; A9579

== ENCOUNTER 2019-06-08 08:35 | Day surgery (SDC) | payer MEDICARE, MEDICAID ==
[2019-06-08] MEDS ORDERED: Sodium Chloride 0.9% 20 ML ONE (08:50)
[2019-06-08] MEDS ORDERED: diphenhydrAMINE 25 MG CAP PO SCH (10:45)
[2019-06-08] MEDS ORDERED: Acetaminophen 500 MG TAB PO SCH (10:45)
[2019-06-08 15:25] VITALS: TEMP 98.5
[2019-06-08 15:26] VITALS: BP 157/73
== END 2019-06-08 16:32 | disposition home or self-care (01) ==
LOC: ONC/OP 08:35
PROVIDERS: ATTEND Specialist
PROC: 30233N1 Transfusion of Nonautologous Red Blood Cells into Peripheral Vein, Percutaneous Approach (ICD-10-PCS; principal; 2019-06-08)
DX: D64.9 Anemia, unspecified (principal); Z88.0 Allergy status to penicillin; Z88.1 Allergy status to other antibiotic agents; Z88.5 Allergy status to narcotic agent; Z88.6 Allergy status to analgesic agent; Z88.7 Allergy status to serum and vaccine
CPT/HCPCS: 36430; 86850; 86900; 86901; 86922; P9016; Q0163

== ENCOUNTER 2019-08-19 10:55 | Day surgery (SDC) | payer MEDICARE, MEDICAID ==
[2019-08-19] MEDS ORDERED: diphenhydrAMINE 25 MG CAP PO SCH (12:15)
[2019-08-19] MEDS ORDERED: Acetaminophen 500 MG TAB PO SCH (12:15)
[2019-08-19 15:26] VITALS: BP 154/77; TEMP 98.1
[2019-08-19 15:46] LABS: Hemoglobin 9.2 g/dL (12.0-16.0); Mean Corpuscular HGB CONC 32.2 g/dL (32.0-36.0); Mean Corpuscular Volume 93.3 fL (78.0-98.0); Mean Platelet Volume 8.6 fL (7.4-10.4); Platelet Count 64 thou/uL (130-400); RBC Distribution Width 15.1 % (11.5-14.5); Red Blood Cell (RBC) Count 3.07 mill/uL (4.20-5.40); White Blood Cell (WBC) Count 2.4 thou/uL (4.8-10.8)
[2019-08-19 16:21] LABS: Band 2 % (5-11); Eosinophils 3 % (0-10); Lymphocytes 15 % (21-51); MDiff Complete? YES; Monocytes 11 % (0-10); Neutrophil 67 % (42-75); Ovalocytes SLIGHT = 2-5 cells (100X) (0-1/hpf); Platelet Morphology Comment Appears Decreased; Polychromasia SLIGHT = 2-3 cells (100X) (0-2/hpf)
== END 2019-08-19 15:31 | disposition home or self-care (01) ==
LOC: ONC/OP 10:55
PROVIDERS: ATTEND Internal Medicine Hematology & Oncology
PROC: 30233N1 Transfusion of Nonautologous Red Blood Cells into Peripheral Vein, Percutaneous Approach (ICD-10-PCS; principal; 2019-08-19)
DX: D64.9 Anemia, unspecified (principal); D69.6 Thrombocytopenia, unspecified; Z88.0 Allergy status to penicillin; Z88.1 Allergy status to other antibiotic agents; Z88.5 Allergy status to narcotic agent; Z88.6 Allergy status to analgesic agent; Z88.7 Allergy status to serum and vaccine
CPT/HCPCS: 36430; 77336; 77386; 85025; 86850; 86870; 86900; 86901; 86922; P9016; Q0163

== ENCOUNTER 2019-10-24 10:08 | Inpatient (IN) | payer MEDICARE, MEDICAID ==
[2019-10-24] MEDS ORDERED: Acetaminophen 500 MG TAB ONE (10:26)
[2019-10-24 10:32] LABS: Hemoglobin 9.4 g/dL (12.0-16.0); Mean Corpuscular HGB CONC 31.9 g/dL (32.0-36.0); Mean Corpuscular Hemoglobin 33.5 pg (27.0-31.0); Mean Platelet Volume 9.8 fL (7.4-10.4); Platelet Count 58 thou/uL (130-400); Red Blood Cell (RBC) Count 2.79 mill/uL (4.20-5.40); White Blood Cell (WBC) Count 2.9 thou/uL (4.8-10.8)
[2019-10-24] MEDS ORDERED: Acetaminophen 650 MG Suppository ONE (10:35)
--- NOTE | 2019-10-24 10:35 | RAD ---
EXAM: CHEST ONE VIEW HISTORY: Altered mental status COMPARISON: 02/25/2018 FINDINGS: Cardiac silhouette is mildly enlarged. There are increased interstitial and patchy peripheral airspac e opacities throughout the right lung and at the left lung base with mild increase in perihilar interstitial densities. No obvious pleural effusion is seen. Degenerative changes are seen in the spi ne. Vascular calcifications are seen in the thoracic aorta. IMPRESSION: Increased interstitial and patchy parenchymal airspace opacities throughout the right lung and at the left lung base. Findings are worrisome for infectious process and possibly atypical infectious process. Viral pneumonitis is a possibility. Follow-up to resolution is recommended.
[2019-10-24 10:42] LABS: ALT (SGPT) 9 U/L (8-55); AST (SGOT) 21 U/L (5-34); Albumin 2.8 g/dL (3.4-4.8); Alkaline Phosphatase 44 U/L (40-110); Anion Gap 11 mmol/L (10-20); BUN (Urea Nitrogen) 18 mg/dL (9.8-20.1); Bilirubin, Total 2.3 mg/dL (0.2-1.2); Calc. Creatinine Clearance 0 mL/min (70-130); Calcium 8.2 mg/dL (7.8-10.44); Carbon Dioxide 20 mmol/L (23-31); Chloride 111 mmol/L (98-107); Estimated GFR-MDRD 56; Globulin 3.6 g/dL (2.4-3.5); Glucose 90 mg/dL (83-110); Potassium 3.2 mmol/L (3.5-5.1); Protein, Total 6.4 g/dL (6.0-8.3); Sodium 139 mmol/L (136-145)
[2019-10-24] MEDS ORDERED: Cefepime 1 GM VIAL ONE (10:42)
[2019-10-24] MEDS ORDERED: Vancomycin 1.5 GRAM/300 ML BAG 1.5 GM in Premix Bag 1 BAG IVPB SCH (11:00)
[2019-10-24 11:05] LABS: CKMB 1.6 ng/mL (0-6.6)
[2019-10-24 11:29] LABS: Anisocytosis MODERATE=16-30 cells (100X) (0-5/hpf); Band 24 % (5-11); Lymphocytes 14 % (21-51); MDiff Complete? YES; Monocytes 4 % (0-10); Platelet Morphology Comment Appears Decreased; Polychromasia SLIGHT = 2-3 cells (100X) (0-2/hpf)
[2019-10-24 11:45] LABS: Bacteria/HPF 4+ HPF (None Seen); Bilirubin Negative (Negative); Blood, Urine 1+ (Negative); Clarity Clear (Clear); Glucose, Urine (Dipstick) Normal (Negative); Ketone, Urine Negative (Negative); Leukocyte 25 Leu/uL (Negative); Nitrite Negative (Negative); Protein, Urine (Dipstick) Negative (Neg-Trace); RBC/HPF 0-3 HPF (0-3); Specific Gravity, Urine 1.013 (1.002-1.036); Squamous Epithelial 0-3 HPF (0-3); Urobilinogen Normal mg/dL (Less than 2)
[2019-10-24 13:57] LABS: SARS-CoV-2 NAA Rapid Test Not Detected (NotDetected)
[2019-10-24 14:03] LABS: Troponin I 0.062 ng/mL (< 0.028)
[2019-10-24 14:10] LABS: Lactic Acid 2.6 mmol/L (0.5-2.2)
[2019-10-24] MEDS ORDERED: Ondansetron ODT 4 MG TAB SL PRN (15:41)
[2019-10-24] MEDS ORDERED: Ondansetron PF 4 MG/2 ML Vial IVP PRN ×2 (15:41→18:10)
[2019-10-24] MEDS ORDERED: Acetaminophen 325 MG TAB PO PRN (15:41)
[2019-10-24] MEDS ORDERED: Acetaminophen 650 MG Suppository PR PRN (15:42)
[2019-10-24 16:02] LABS: Troponin I 0.093 ng/mL (< 0.028)
[2019-10-24 16:24] VITALS: BMI 22.7
[2019-10-24] MEDS: Sodium Chloride 0.9% 1,000 ML IV SCH ×2 (16:33→23:52)
[2019-10-24] MEDS ORDERED: Ondansetron ODT 4 MG TAB PO PRN (18:10)
[2019-10-24] MEDS ORDERED: Sodium Chloride 0.9% (PF) 10 ML VIAL FS PRN (18:11)
[2019-10-24] MEDS ORDERED: Furosemide 20 MG/2 ML VIAL SLOW IVP SCH (18:15)
[2019-10-24] MEDS: NS 0.9% w/ 20 MEQ KCL 1,000 ML IV SCH (18:30)
[2019-10-24] MEDS: Acetaminophen 650 MG Suppository PR SCH (21:53)
[2019-10-24] MEDS: Acetaminophen 325 MG TAB PO SCH (21:53)
[2019-10-24] MEDS ORDERED: Vancomycin 1 GM in Premix Bag 1 BAG IVPB SCH (23:00)
[2019-10-24] MEDS ORDERED: Cefepime 1 GM in Sodium Chloride 0.9% 100 ML IVPB SCH (23:00)
[2019-10-25] MEDS: Acetaminophen 325 MG TAB PO SCH ×2 (00:37→06:35)
[2019-10-25] MEDS: Acetaminophen 650 MG Suppository PR SCH ×2 (00:37→06:36)
--- NOTE | 2019-10-25 01:51 | HP ---
CHIEF COMPLAINT ON ADMISSION: Sepsis with liver cancer and pneumonia. HISTORY OF PRESENT ILLNESS: The patient is a 78-year-old female with known liver cancer who has been undergoing treatment. She began to have altered mental status on the day of admission, so her family brought her to the emergency room for further evaluation. She arrived in atrial fibrillation with rapid ventricular response and was given Cardizem 20 mg intravenously and quickly responded with a heart rate in the 90s. She also began to slowly clear mentally as fluids were added to her resuscitation measures. She denies any fever, vomiting, or diarrhea or other issues other than confusion. PAST MEDICAL HISTORY: Significant for aforementioned liver cancer for which she has been receiving chemotherapy. She has a longstanding history of atrial fibrillation, but is not able to be anticoagulated due to frequent GI bleeds. She has COPD. She at one time had diabetes type 2, but then began to control it with proper eating. She has hypertension, severe GERD, abdominal hernia, tracheomalacia with esophageal strictures, history of pancreatitis, colon polyps, history of CHF, history of peptic ulcer disease, coronary artery disease. She has had stents placed in the past. She has had adult respiratory distress syndrome with recurrent pneumonia and vitamin D deficiency. PAST SURGICAL HISTORY: Includes cholecystectomy, removal of colon polyps, tracheal stent placement, Billroth II gastric surgery, section, cardiac stents, the sections, she has had 3. She has also had tubal ligation. She has had cyst removed from her stomach twice and a tracheostomy due to fluid in her lungs back in 2007. PSYCHIATRIC HISTORY: Negative. SOCIAL HISTORY: She is a former smoker, but quit smoking 13 years ago. At that time, though she had greater than 30 pack years. She denies alcohol or illicit drug use. She lives at home with her family. FAMILY HISTORY: Significant for diabetes and hypertension. ALLERGIES: THE PATIENT IS KNOWN ALLERGIES TO ASPIRIN, CIPROFLOXACIN, CLARITHROMYCIN, DOXYCYCLINE, INFLUENZA VACCINE, KEFLEX, MORPHINE, PENICILLIN AND PNEUMOCOCCAL VACCINE. MEDICATIONS ON ADMISSION: Include: 1. Lasix 20 mg p.o. p.r.n. edema. 2. Losartan 25 mg to 50 mg daily for blood pressure. 3. Potassium supplement 20 mEq daily. 4. Tramadol 50 mg q.6h p.r.n. pain. 5. Mavyret 100-40 once daily. 6. Capecitabine 1 tab daily. REVIEW OF SYSTEMS: The patient is unable to contribute to that due to confusion and altered mental status at this time. PHYSICAL EXAMINATION: VITAL SIGNS: Blood pressure 118/63, pulse is 89, respiratory rate 24, O2 saturation 98% on room air, her weight is 132 pounds. GENERAL: This is an elderly female who does respond, but speaks incoherently and confabulates. HEENT: Swollen upper lids and lower lip. Pupils with diminished reactivity to light at 2-3 mm bilaterally. No jaundice. Extraocular muscles appear intact. TMs, nares and pharynx are clear. NECK: Supple. No adenopathy. CHEST: With mild rales and rhonchi bilaterally. BREASTS: Deferred. HEART: Regular rate and rhythm without murmur. ABDOMEN: Soft, nontender at this time. Unable to appreciate organomegaly. : Deferred. EXTREMITIES: With 3+ bilateral lower extremity edema (this is old). SKIN: No new rashes or lesions. NEUROLOGIC: Cranial nerves are intact. Unable to test gait and cerebellar function at this time. Sensory exam is grossly intact. Mental status is altered. LABORATORY DATA: Lab work thus far shows WBCs 2.9, hemoglobin 9.4, hematocrit 29.3 with platelets at 58, bands are 24, lymphocytes 14. Sodium is 139, potassium 3.2, chloride 111, CO2 20, BUN 18, creatinine 1.14. Lactic acid is up to 2.6, calcium 8.2, total bilirubin at 2.3. Other liver functions are normal. Her troponins are elevated as expected at 0.05, 0.06 and 0.09. Urinalysis shows 25 leukocyte esterase with 4 to 6 wbcs and serology is COVID negative. IMAGING: Chest x-ray shows increased interstitial and patchy parenchymal airspace opacities throughout the right lung and at the left lung base. Infectious etiology is of concern. ASSESSMENT: 1. Community-acquired pneumonia in this immunocompromised individual. 2. Neutropenia. 3. Thrombocytopenia. 4. History of liver cancer, undergoing chemotherapy. 5. Longstanding chronic obstructive pulmonary disease. 6. Hypokalemia. PLAN: Plan will be to continue IV fluid supplementation with potassium. Continue antibiotics. Scheduled neb treatments and serial re-evaluation. Oncology has been asked to contribute and serial re-evaluation will be performed. Job ID: [id number] [facility]
[2019-10-25] MEDS: NS 0.9% w/ 20 MEQ KCL 1,000 ML IV SCH ×4 (03:09→21:41)
[2019-10-25 06:33] LABS: Hemoglobin 9.5 g/dL (12.0-16.0); Mean Corpuscular HGB CONC 31.2 g/dL (32.0-36.0); Mean Corpuscular Hemoglobin 33.8 pg (27.0-31.0); Mean Platelet Volume 10.9 fL (7.4-10.4); Platelet Count 52 thou/uL (130-400); RBC Distribution Width 22.7 % (11.5-14.5); Red Blood Cell (RBC) Count 2.82 mill/uL (4.20-5.40); White Blood Cell (WBC) Count 8.5 thou/uL (4.8-10.8)
[2019-10-25 06:39] LABS: Anion Gap 15 mmol/L (10-20); BUN (Urea Nitrogen) 18 mg/dL (9.8-20.1); Calc. Creatinine Clearance 48 mL/min (70-130); Calcium 7.9 mg/dL (7.8-10.44); Carbon Dioxide 15 mmol/L (23-31); Chloride 117 mmol/L (98-107); Estimated GFR-MDRD 69; Glucose 65 mg/dL (83-110); Potassium 3.7 mmol/L (3.5-5.1); Sodium 143 mmol/L (136-145)
[2019-10-25 06:46] LABS: Anisocytosis SLIGHT = 6-15 cells (100X) (0-5/hpf); Band 50 % (5-11); Dohle Bodies SLIGHT; Lymphocytes 3 % (21-51); MDiff Complete? YES; Macrocytosis SLIGHT = 6-15 cells (100X) (0-5/hpf); Metamyelocyte 3 % (0-0); Monocytes 9 % (0-10); Platelet Morphology Comment Appears Decreased; Toxic Granulation SLIGHT
[2019-10-25] MEDS: Furosemide 20 MG/2 ML VIAL SLOW IVP SCH ×2 (06:51→13:24)
--- NOTE | 2019-10-25 07:38 | RAD ---
Chest one view HISTORY: Pneumonia. Follow-up. COMPARISON: 10/24/2019. FINDINGS: Cardiac silhouette is magnified and enlarged. Pulmonary vasculature slightly engorged. Subtle patchy areas of ill-defined parenchymal opacity involving each lung, right greater than left, are slightly less dense than on the prior study. Mediastinum is midline with aortic calcification. No evidence of pneumothorax. IMPRESSION : Slight interval improvement in radiographic appearance of multifocal pneumonia. Cardiomegaly. Atherosclerosis.
[2019-10-25] MEDS ORDERED: Acetaminophen 650 MG Suppository PR PRN (08:15)
[2019-10-25 09:23] LABS: Neutrophil 35 % (42-75)
[2019-10-25] MEDS: Pantoprazole 40 MG VIAL IVP SCH (10:48)
[2019-10-25 10:59] LABS: Neutrophil 58 % (42-75)
[2019-10-25] MEDS: Vancomycin HCl 750 MG in Sodium Chloride 0.9% 250 ML 250 ML IVPB SCH (13:21)
[2019-10-25] MEDS: Meropenem 2 GM in Sodium Chloride 0.9% 100 ML IVPB SCH ×2 (13:24→21:41)
--- NOTE | 2019-10-25 13:47 | CON ---
DATE OF CONSULTATION: 10/25/2019 REASON FOR CONSULTATION: [facility] patient. HISTORY OF PRESENT ILLNESS: Ms. Monreal is a 78-year-old female, who is well known to me. I originally saw her back in 2007 when she was intubated and developed tracheal stenosis, which has required multiple interventions in the past including tracheal stent placement. She sees a doctor in [place]. He replaces the stent about every 5 years. She was brought in the hospital last night with apparent pneumonia and sepsis. PAST MEDICAL HISTORY: 1. Liver cancer. 2. Tracheal stenosis. 3. Atrial fibrillation. 4. Chronic obstructive pulmonary disease. 5. Pancreatitis. 6. Colon polyps. PAST SURGICAL HISTORY: 1. Cholecystectomy. 2. Tracheal stent placement. 3. Previous tracheostomy. 4. Billroth II gastric surgery. 5. x3. 6. Tubal ligation. SOCIAL HISTORY: Quit smoking 13 years ago. Does not consume alcohol. Does not use illicit drugs. ALLERGIES: ASPIRIN, CIPRO, CLARITHROMYCIN, DOXYCYCLINE, INFLUENZA VACCINE, KEFLEX, MORPHINE, PENICILLIN, AND PNEUMOCOCCAL VACCINE. MEDICATIONS: Prior to admission; 1. Lasix. 2. Losartan. 3. Potassium. 4. Tramadol. 5. Mavyret. 6. Capecitabine. REVIEW OF SYSTEMS: Otherwise negative. PHYSICAL EXAMINATION: VITAL SIGNS: Temperature 97.4, pulse 85, blood pressure 127/60, O2 saturation 100%. Height 5 feet 4 inches. Weight 132 pounds. GENERAL: She appears cachectic and in no apparent distress. HEENT: Unremarkable. NECK: Copious upper airway sounds. LUNGS: Fairly clear distally. CARDIOVASCULAR: S1, S2. Regular. ABDOMEN: Soft, nontender to palpation. EXTREMITIES: No clubbing, cyanosis, or edema. DIAGNOSTIC DATA: Chest x-ray shows question of a right upper lobe infiltrate. Tracheal stent is obvious. LABORATORY DATA: White blood cell count 8.5, hematocrit 30, and platelet count 52. Sodium 143, potassium 3.7, chloride 117, CO2 of 15, BUN 18, creatinine 0.9, glucose 65. ASSESSMENT: 1. Tracheitis. 2. Concurrent pneumonia. 3. Liver cancer - undergoing chemotherapy. 4. Chronic obstructive pulmonary disease. PLAN: 1. I am going to add EzPAP to her nebs to see if we can clear some of the secretions from her trachea. Her stent is probably colonized. 2. We would recommend continued gram-negative coverage. Right now, she is only on vancomycin, which will not cover any Gram negatives. It is noted she has multiple allergies to antibiotics, but I probably need to try aztreonam or meropenem and see if she can tolerate that. Job ID: [id number]
--- NOTE | 2019-10-25 20:19 | CON ---
DATE OF CONSULTATION: REASON FOR CONSULTATION: Cholangiocarcinoma. HISTORY OF PRESENT ILLNESS: Ms. Monreal is a 78-year-old female with stage IA cholangiocarcinoma. She recently completed concurrent chemoradiation with Xeloda and is currently on maintenance oral chemo. She presented to the emergency room with worsening shortness of breath. She had a chest x-ray, which showed increased interstitial and patchy parenchymal airspace opacities throughout the right lung and left lung base, consistent with pneumonia. She was admitted and started on IV antibiotics. She was also having some altered mental status, which has improved since arrival. CBC in the ER showed a white count of 2.9, hemoglobin of 9.4, and platelet count of 58,000, likely secondary to chemotherapy. Her Xeloda has been held since admission. She was also seen by Dr. Sumner who has seen her in the past for tracheal stenosis and has adjusted her antibiotics. She was in atrial fibrillation on arrival with RVR. She was given medication and her heart rate remains in the 90s. She denies any complaints at this time. She denies shortness of breath, although she has significant rhonchi on exam. PAST MEDICAL HISTORY: 1. Stage IA cholangiocarcinoma status post CCRT. 2. Pancytopenia, likely multifactorial from cirrhosis, splenomegaly, and chronic kidney disease. 3. Chronic kidney disease. 4. Hepatitis C. 5. Heart failure. 6. COPD. 7. Diabetes mellitus 2. 8. Hypertension. 9. IBS. PAST SURGICAL HISTORY: 1. Cholecystectomy. 2. Tracheal stent placement. 3. Gastric surgery. 4. . 5. Tubal ligation. ALLERGIES: TO ASPIRIN, CIPRO, CLARITHROMYCIN, DOXYCYCLINE, FLU VACCINE, KEFLEX, MORPHINE, PENICILLIN, AND PNEUMONIA VACCINE. HOME MEDICATIONS: 1. Dexilant. 2. Glipizide ER. 3. Lasix. 4. Losartan. 5. Potassium. 6. ProAir. 7. Compazine. 8. Zofran. 9. Xeloda. FAMILY HISTORY: Noncontributory. SOCIAL HISTORY: . No alcohol, tobacco, or illicit drug use. REVIEW OF SYSTEMS: A 10-point review of systems is negative except for noted in HPI. PHYSICAL EXAMINATION: VITAL SIGNS: Temperature 97.5, pulse is 88, respiratory rate 20, BP is 101/69, and she is 95% on room air. GENERAL: This is a frail female, in no acute distress. HEENT: Normocephalic and atraumatic. Pupils equal and reactive to light. CV: Regular rate and rhythm. LUNGS: Rales or rhonchi throughout. ABDOMEN: Soft and nontender. Bowel sounds are positive. EXTREMITIES: She has 2+ bilateral lower extremity edema. SKIN: She has erythema on her hands. HEMATOLOGIC: No petechiae or purpura. NEUROLOGIC: Nonfocal. PERTINENT LABORATORY DATA AND X-RAYS: Current WBCs are 8.5, hemoglobin 9.5, start 30.5, platelet count 52,000, 35% neutrophils, 50% bands, and 3% lymphocytes. Sodium 143, potassium 3.7, chloride 117, CO2 is 15, BUN is 18, creatinine 0.95, and calcium 7.9. Troponin 0.093. Lactic acid 2.6. Bilirubin is 2.3, AST is 21, ALT is 9, and alkaline phosphatase is 44. Serum total protein 6.4, albumin 2.8, and globulin 3.6. Urine shows 4+ bacteria, positive leukocyte esterase. COVID is negative. Radiology per HPI. ASSESSMENT: 1. Pneumonia. 2. Cholangiocarcinoma, on oral chemotherapy. 3. Chronic obstructive pulmonary disease. 4. Anemia and thrombocytopenia, likely secondary to chemo. DISCUSSION: The patient is on appropriate antibiotics, being managed by Dr. Sumner. She has improved since admission. I would continue to hold her oral chemotherapy until she has fully recovered. She does get Procrit in the outpatient setting; however, her hemoglobin is 9.5. We will hold it for now. We will follow up with her in the clinic and follow her hospitalization remotely. Thank you for the consult. Job ID: [id number] [facility]ITALBilly
[2019-10-26 05:41] LABS: Anion Gap 10 mmol/L (10-20); BUN (Urea Nitrogen) 21 mg/dL (9.8-20.1); Calc. Creatinine Clearance 42 mL/min (70-130); Calcium 7.6 mg/dL (7.8-10.44); Carbon Dioxide 18 mmol/L (23-31); Chloride 113 mmol/L (98-107); Estimated GFR-MDRD 60; Glucose 107 mg/dL (83-110); Potassium 3.4 mmol/L (3.5-5.1); Sodium 138 mmol/L (136-145)
--- NOTE | 2019-10-26 07:46 | RAD ---
EXAM: Single view of the chest HISTORY: Pneumonia COMPARISON: 10/25/2019 FINDINGS: Single view of the chest shows an enlarged but stable cardiomediastinal silhouette. Athero sclerotic calcifications are seen in the aorta. There are stable multifocal infiltrates in the lungs, right greater than left. Bilateral perihilar fullness is stable. No acute osseous abnormality. IMPRESSION: Stable exam
--- NOTE | 2019-10-26 09:44 | PRG ---
DATE OF SERVICE: 10/26/2019 SUBJECTIVE: The patient is doing okay. She is mobilizing more secretions. OBJECTIVE: VITAL SIGNS: Temperature 99.8, pulse 102, blood pressure 101/48. HEENT: Unremarkable. NECK: No adenopathy or JVD. LUNGS: Coarse breath sounds. CARDIAC: S1, S2. Regular. ABDOMEN: Soft. EXTREMITIES: No edema. LABORATORY DATA: Cultures are growing out Klebsiella from the urine. Sodium 138, potassium 3.4, chloride 113, CO2 of 18, BUN 21, creatinine 1.1, glucose 107. ASSESSMENT: Upper airway issues from tracheal stent placement, probably with tracheitis. PLAN: Antibiotic therapy, pulmonary toilet measures. Probably can be transferred with some medical. Job ID: [id number]
[2019-10-26 09:48] LABS: Hemoglobin 8.6 g/dL (12.0-16.0); Mean Corpuscular HGB CONC 32.8 g/dL (32.0-36.0); Mean Corpuscular Hemoglobin 35.4 pg (27.0-31.0); Mean Platelet Volume 9.3 fL (7.4-10.4); Platelet Count 55 thou/uL (130-400); RBC Distribution Width 22.6 % (11.5-14.5); Red Blood Cell (RBC) Count 2.43 mill/uL (4.20-5.40); White Blood Cell (WBC) Count 6.8 thou/uL (4.8-10.8)
[2019-10-26] MEDS: Furosemide 20 MG/2 ML VIAL SLOW IVP SCH ×2 (10:25→15:14)
[2019-10-26] MEDS: Meropenem 2 GM in Sodium Chloride 0.9% 100 ML IVPB SCH ×3 (10:26→22:14)
[2019-10-26 10:49] LABS: Band 35 % (5-11); Lymphocytes 8 % (21-51); MDiff Complete? YES; Macrocytosis SLIGHT = 6-15 cells (100X) (0-5/hpf); Monocytes 8 % (0-10); Neutrophil 49 % (42-75); Platelet Morphology Comment Appears Decreased; Polychromasia SLIGHT = 2-3 cells (100X) (0-2/hpf)
[2019-10-26] MEDS: Pantoprazole 40 MG VIAL IVP SCH (11:04)
[2019-10-26] MEDS: NS 0.9% w/ 20 MEQ KCL 1,000 ML IV SCH ×2 (11:08→17:00)
[2019-10-26] MEDS: Diphenoxylate HCl/Atropine Tablet PO PRN ×2 (11:20→17:05)
[2019-10-26] MEDS: Vancomycin HCl 750 MG in Sodium Chloride 0.9% 250 ML 250 ML IVPB SCH (11:20)
[2019-10-26 12:44] LABS: Vancomycin, Trough 20.5 ug/mL
[2019-10-26] MEDS: Acetaminophen 325 MG TAB PO PRN (17:05)
[2019-10-27] MEDS: NS 0.9% w/ 20 MEQ KCL 1,000 ML IV SCH ×4 (02:57→17:27)
[2019-10-27] MEDS: Furosemide 20 MG/2 ML VIAL SLOW IVP SCH ×2 (05:09→14:29)
[2019-10-27] MEDS: Meropenem 2 GM in Sodium Chloride 0.9% 100 ML IVPB SCH ×3 (06:52→21:39)
[2019-10-27 07:29] LABS: #Eosinphils 0.2 thou/uL (0.0-0.7); #Lymphocytes 0.5 thou/uL (1.20-3.40); #Monocytes 0.7 thou/uL (0.11-0.59); #Neutrophils 3.9 thou/uL (1.40-6.50); %Basophils 0.5 % (0.0-1.0); %Eosinophils 3.7 % (0.0-10.0); %Lymphocytes 9.3 % (21.0-51.0); %Monocytes 13.2 % (0.0-10.0); %Neutrophils 73.4 % (42.0-75.0); Hemoglobin 8.8 g/dL (12.0-16.0); Mean Corpuscular HGB CONC 31.7 g/dL (32.0-36.0); Mean Corpuscular Hemoglobin 34.6 pg (27.0-31.0); Mean Platelet Volume 9.4 fL (7.4-10.4); Platelet Count 59 thou/uL (130-400); RBC Distribution Width 22.8 % (11.5-14.5); Red Blood Cell (RBC) Count 2.55 mill/uL (4.20-5.40); White Blood Cell (WBC) Count 5.3 thou/uL (4.8-10.8)
[2019-10-27 07:45] LABS: ALT (SGPT) 10 U/L (8-55); AST (SGOT) 18 U/L (5-34); Albumin 2.3 g/dL (3.4-4.8); Alkaline Phosphatase 38 U/L (40-110); Anion Gap 11 mmol/L (10-20); BUN (Urea Nitrogen) 21 mg/dL (9.8-20.1); Bilirubin, Total 1.3 mg/dL (0.2-1.2); Calc. Creatinine Clearance 40 mL/min (70-130); Calcium 8.4 mg/dL (7.8-10.44); Carbon Dioxide 21 mmol/L (23-31); Chloride 109 mmol/L (98-107); Estimated GFR-MDRD 56; Globulin 3.2 g/dL (2.4-3.5); Glucose 79 mg/dL (83-110); Potassium 3.8 mmol/L (3.5-5.1); Protein, Total 5.5 g/dL (6.0-8.3); Sodium 137 mmol/L (136-145)
--- NOTE | 2019-10-27 07:54 | RAD ---
EXAM: CHEST ONE VIEW HISTORY: Pneumonia. COMPARISON: 10/26/2019 FINDINGS: Cardiac silhouette is magnified by projection but does appear enlarged. Increased interstitial and pa tchy parenchymal airspace opacities are again seen throughout the right lung predominantly in a perihilar location and at the right lung base. Mild increased interstitial densities are seen in a pe rihilar location on the left. No definite pleural effusion is seen. Vascular calcifications are again seen in the thoracic aorta. No other interval change. IMPRESSION: Mild increase in the interstitial and patchy parenchymal airspace opacities throughout the right lung with slight increase in interstitial densities in the left perihilar location. Findings are likely related to worsening infectious process. Follow-up to resolution is recommended.
[2019-10-27] MEDS ORDERED: Furosemide 20 MG/2 ML VIAL SLOW IVP SCH (08:00)
[2019-10-27 08:10] LABS: Bite Cells SLIGHT = 2-5 cells (100X) (0-1/hpf); MDiff Complete? YES; Ovalocytes SLIGHT = 2-5 cells (100X) (0-1/hpf); Platelet Morphology Comment Appears Decreased; Polychromasia SLIGHT = 2-3 cells (100X) (0-2/hpf)
[2019-10-27] MEDS: Pantoprazole 40 MG VIAL IVP SCH (08:21)
--- NOTE | 2019-10-27 10:19 | PRG ---
DATE OF SERVICE: 10/27/2019 SUBJECTIVE: The patient is doing about the same. Had no acute complaints. OBJECTIVE: VITAL SIGNS: Temperature 98.5, pulse 104, respirations 18, O2 saturation 93% on room air. Blood pressure 121/62. HEENT: Unremarkable. NECK: Coarse tracheal sounds. LUNGS: Coarse breath sounds. CARDIAC: S1 and S2. Regular. ABDOMEN: Soft. EXTREMITIES: No edema. LABORATORY DATA: White blood cell count 5.5, hematocrit 27.8, and platelet count 59. Sodium 137, BUN 21, creatinine 1.1, glucose 79. Micro data show Klebsiella in the urine. ASSESSMENT: 1. Tracheitis. 2. Aspiration pneumonia. PLAN: 1. Continue broad-spectrum IV antibiotics with meropenem and vancomycin. She has multiple drug allergies, prohibit the use of anything else. 2. I am going to add low dose of steroids. Job ID: [id number]
[2019-10-27] MEDS ORDERED: predniSONE 20 MG TAB PO SCH (10:30)
[2019-10-27 11:16] LABS: Vancomycin, Trough 16.8 ug/mL
--- NOTE | 2019-10-27 11:23 | PDOC.MOPN ---
Interval History: breathing improved, not on O2. - Vital Signs Vital Signs: Vital Signs (12 hours) Temp Pulse Resp BP Pulse Ox 10/27/19 10:40 87 20 10/27/19 08:13 93 L 10/27/19 07:54 98.5 F 104 H 18 121/62 93 L 10/27/19 06:59 90 20 10/27/19 04:27 99.1 F 110 H 20 122/58 L 98 10/27/19 02:42 88 20 96 Weight Weight 132 lb 11.2 oz Most Recent Monitor Data Heart Rate from ECG 100 NIBP 90/55 NIBP BP-Mean 66 Respiration from ECG 25 SpO2 100 - Physical Exam General: Alert, Oriented x3, No acute distress HEENT: Atraumatic Lungs: Other (rhonchi) Cardiovascular: Regular rate Abdomen: Normal bowel sounds Neurological: Normal speech Psych/Mental Status: Mental status NL - Labs Result Diagrams: 10/27/19 07:08 10/27/19 07:08 Lab results: Laboratory Results - last 24 hr 10/27/19 10:45: Vancomycin Trough 16.8 10/27/19 07:08: WBC 5.3, RBC 2.55 L, Hgb 8.8 L, Hct 27.8 L, MCV 109.0 H, MCH 34.6 H, MCHC 31.7 L, RDW 22.8 H, Plt Count 59 L, MPV 9.4, Neutrophils % 73.4, Neutrophils % (Manual) Not Reportable, Lymphocytes % 9.3 L, Monocytes % 13.2 H, Eosinophils % 3.7, Basophils % 0.5, Neutrophils # 3.9, Lymphocytes # 0.5 L, Mon ocytes # 0.7 H, Eosinophils # 0.2, Basophils # 0.0, Plt Morphology Comment Appears Decreased L, Polychromasia SLIGHT = 2-3 cells, Ovalocytes SLIGHT = 2-5 cells, Bite Cells SLIGHT = 2-5 cells 10/27/19 07:08: Sodium 137, Potassium 3.8, Chloride 109 H, Carbon Dioxide 21 L, Anion Gap 11, BUN 21 H, Creatinine 1.14 H, Estimated GFR (MDRD) 56, Glucose 79 L, Calcium 8.4, Total Bilirubin 1.3 H, AST 18, ALT 10, Alkaline Phosphatase 38 L, Serum Total Protein 5.5 L, Albumin 2.3 L, Globulin 3.2, Albumin/Globulin Ratio 0.7 L 10/26/19 12:11: Vancomycin Trough 20.5 Status: lab reviewed by me A/P - Problem (1) Cholangiocarcinoma Current Visit: Yes Code(s): C22.1 - INTRAHEPATIC BILE DUCT CARCINOMA Status: Acute (2) Pneumonia Current Visit: No Code(s): J18.9 - PNEUMONIA, UNSPECIFIED ORGANISM Status: Acute - Plan Plan: 1. hold Xeloda until discharge 2. monitor CBC 3. follow-up in clinic.
[2019-10-27] MEDS: Vancomycin HCl 750 MG in Sodium Chloride 0.9% 250 ML 250 ML IVPB SCH (11:41)
[2019-10-27] MEDS: Diphenoxylate HCl/Atropine Tablet PO PRN (17:29)
[2019-10-27] MEDS: predniSONE 20 MG TAB PO SCH (21:39)
[2019-10-28] MEDS: Furosemide 20 MG/2 ML VIAL SLOW IVP SCH (05:05)
[2019-10-28] MEDS: Meropenem 2 GM in Sodium Chloride 0.9% 100 ML IVPB SCH ×3 (05:05→21:21)
[2019-10-28 05:42] LABS: #Lymphocytes 0.3 thou/uL (1.20-3.40); #Monocytes 0.3 thou/uL (0.11-0.59); #Neutrophils 2.7 thou/uL (1.40-6.50); %Eosinophils 0.3 % (0.0-10.0); %Lymphocytes 9.1 % (21.0-51.0); %Monocytes 8.9 % (0.0-10.0); %Neutrophils 81.7 % (42.0-75.0); Hemoglobin 7.9 g/dL (12.0-16.0); Mean Corpuscular HGB CONC 31.8 g/dL (32.0-36.0); Platelet Count 53 thou/uL (130-400); RBC Distribution Width 22.4 % (11.5-14.5); Red Blood Cell (RBC) Count 2.31 mill/uL (4.20-5.40); White Blood Cell (WBC) Count 3.3 thou/uL (4.8-10.8)
[2019-10-28 05:51] LABS: Anion Gap 10 mmol/L (10-20); BUN (Urea Nitrogen) 22 mg/dL (9.8-20.1); Calc. Creatinine Clearance 36 mL/min (70-130); Calcium 8.1 mg/dL (7.8-10.44); Carbon Dioxide 21 mmol/L (23-31); Chloride 104 mmol/L (98-107); Estimated GFR-MDRD 50; Glucose 121 mg/dL (83-110); Potassium 3.4 mmol/L (3.5-5.1); Sodium 132 mmol/L (136-145)
--- NOTE | 2019-10-28 08:18 | RAD ---
EXAM: Single view of the chest HISTORY: Pneumonia COMPARISON: 10/27/2019 FINDINGS: Single view of the chest shows an enlarged but stable cardiomediastinal silhouette. Mixed m ultifocal infiltrates are seen in the right lung. Left perihilar fullness is also seen and stable. No acute osseous abnormality. IMPRESSION: Stable exam
[2019-10-28] MEDS: predniSONE 20 MG TAB PO SCH ×2 (08:41→21:03)
--- NOTE | 2019-10-28 10:23 | PRG ---
DATE OF SERVICE: 10/28/2019 SUBJECTIVE: She says she feels better. She still has very coarse breath sounds. OBJECTIVE: VITAL SIGNS: Temperature 98.3, pulse 80, O2 sat 94% on room air, and blood pressure 113/68. HEENT: Unremarkable. NECK: Tracheal breath sounds. LUNGS: Coarse rhonchi. CARDIAC: S1 and S2. Regular. ABDOMEN: Soft. EXTREMITIES: No edema. LABORATORY DATA: White blood cell count 3.3, hematocrit 24.7, and platelet count 53. Sodium 132, potassium 3.4, BUN 22, creatinine 1.2, and glucose 121. ASSESSMENT: 1. Cholangiocarcinoma. 2. Tracheitis for aspiration pneumonia. 3. History of tracheal stent placement. PLAN: Continuing antibiotics, meropenem and vancomycin. She has multiple drug allergies. I am not sure whether or not antibiotics will clear this out and she may ultimately need referral back to Dr. Lott in [place], [place] to have the stents changed out. I agree with the plan to send the patient to halfway for extended antibiotic therapy. Job ID: [id number]
--- NOTE | 2019-10-28 11:29 | PQF ---
CLINICAL DOCUMENTATION CLARIFICATION FORM: Dear Dr. Balta GRANT Date / Time: 10/28/19 4793 Please exercise your independent, professional judgment in responding to the clarification form. Clinical indicators are provided on the bottom of this form for your review. Please check appropriate box(es): [ x ] Sepsis due to: Community Acquired Pneumonia [ ] Sepsis not due to : Community Acquired Pneumonia [ ] Sepsis [ ] Septic Shock [ ] Localized infection without sepsis [ ] Other diagnosis [ ] Unable to determine In addition, please specify: Present on Admission (POA): [ x ] Yes [ ] No [ ] Unable to determine For continuity of documentation, please document condition throughout progress notes and discharge summary. Thank You. To be completed by CDI/Coding staff for physician review: CLINICAL INDICATORS - SIGNS / SYMPTOMS / LABS / RESULTS AND LOCATION IN MR 10/23 BANDS 24 10/24 BANDS 50 10/25 BANDS 35 10/23 WBC 2.9 10/27 WBC 3.3 10/23 ED REPORT: PULSE 110, RESP 29, TEMP 102.1// BROUGHT IN BY FAMILY FOR AMS, FEVER. TODAY FAMILY NOTED THE PATIENT WAS ALTERED. FINAL ED PHYSICIAN DX: SEPSIS 10/24 CONSULT (SHAYLA) ASSESSMENT: TRACHEITIS, CONCURRENT PNEUMONIA, LIVER CANCER-UNDERGOING CHEMOTHERAPY, COPD RISK FACTORS / RESULTS AND LOCATION IN MR DX COMMUNITY ACQUIRED PNEUMONIA IN AN IMMUNOCOMPROMISED INDIVIDUAL , ADVANCED AGE (78) ( H&P/RUDY) 10/24 TREATMENTS / RESULTS AND LOCATION IN MR DAILY CBC ( 10/23 PRESENT) VANCOMYCIN IV ( 10/24 - PRESENT) THANK YOU! CDS Signature: KERON SMITH RN Phone #: [phone] Date: 10/28/2019 This is a permanent part of the Medical Record [facility]
[2019-10-28] MEDS: Vancomycin HCl 750 MG in Sodium Chloride 0.9% 250 ML 250 ML IVPB SCH (11:56)
--- NOTE | 2019-10-28 12:14 | PQF ---
CLINICAL DOCUMENTATION CLARIFICATION FORM: Dear Dr. Balta GRANT Date: 10/28/2019 0559 Please exercise your independent, professional judgment in responding to the clarification form. Clinical indicators are provided on the bottom of this form for your review. Please check appropriate box(es): [ x ] UTI please specify if due to or related to (as applicable): UTI Site: [ ] Kidney [ ] Ureter [ x ] Bladder [ ] Urethra [ ] Unable to determine Specify Organism (if known)K. pneumonia: [ ] Unknown organism [ ] Contaminated urine specimen without UTI [ ] Other diagnosis [ ] Unable to determine In addition, please specify: Present on Admission (POA): [ x ] Yes [ ] No [ ] Unable to determine For continuity of documentation, please document condition throughout progress notes and discharge summary. Thank You. To be completed by CDI/Coding staff for physician review: CLINICAL INDICATORS - SIGNS / SYMPTOMS / LABS / RESULTS AND LOCATION IN MR 10/23 URINE CULTURE (STRAIGHT CATH) KLEBSIELLA PNEUMONIAE SSP PNEU 10/23 ED REPORT: FEVER OF 102.1, AMS PER FAMILY, ED PHYSICIAN FINAL DX: SEPSIS RISK FACTORS / RESULTS AND LOCATION IN MR ADVANCED AGE ( 78), IMMUNOCOMPROMISED ON CHEMOTHERAPY (Joellen&P/RUDY ) 10/23 TREATMENT / RESULTS AND LOCATION IN MR IV FLUIDS ( 10/26 PRESENT) VANCOMYCIN IV ( 10/24 PRESENT) THANK YOU! CDS Signature: KERON SMITH RN Phone #: [phone] Date: 10/28/19 This is a permanent part of the Medical Record [facility]
[2019-10-28] MEDS ORDERED: diphenhydrAMINE 25 MG CAP PO PRN (22:39)
[2019-10-29] MEDS: Meropenem 2 GM in Sodium Chloride 0.9% 100 ML IVPB SCH ×3 (05:24→21:48)
[2019-10-29 06:53] LABS: Anion Gap 12 mmol/L (10-20); BUN (Urea Nitrogen) 23 mg/dL (9.8-20.1); Calc. Creatinine Clearance 40 mL/min (70-130); Calcium 8.6 mg/dL (7.8-10.44); Carbon Dioxide 21 mmol/L (23-31); Chloride 105 mmol/L (98-107); Estimated GFR-MDRD 51; Glucose 122 mg/dL (83-110); Potassium 3.7 mmol/L (3.5-5.1); Sodium 134 mmol/L (136-145)
[2019-10-29 06:56] LABS: Anisocytosis MODERATE=16-30 cells (100X) (0-5/hpf); Band 23 % (5-11); Hemoglobin 8.3 g/dL (12.0-16.0); Lymphocytes 9 % (21-51); MDiff Complete? YES; Mean Corpuscular HGB CONC 30.8 g/dL (32.0-36.0); Mean Corpuscular Hemoglobin 33.4 pg (27.0-31.0); Monocytes 6 % (0-10); Neutrophil 62 % (42-75); Platelet Count 66 thou/uL (130-400); Platelet Morphology Comment Appears Decreased; RBC Distribution Width 22.5 % (11.5-14.5); Red Blood Cell (RBC) Count 2.48 mill/uL (4.20-5.40); White Blood Cell (WBC) Count 4.6 thou/uL (4.8-10.8)
[2019-10-29] MEDS: predniSONE 20 MG TAB PO SCH ×2 (08:35→20:26)
--- NOTE | 2019-10-29 09:47 | RAD ---
CHEST 1 VIEW: HISTORY: Followup pneumonia. COMPARISON: 10/28/2019. FINDINGS: Stable cardiomegaly with bilateral vascular congestion. Stable interstitial and alveolar opacity kareem nges throughout the right lung. Stable increased markings in the left chest. IMPRESSION: Stable exam with patchy alveolar and ground-glass opacity changes throughout much of the right lung w ith vascular congestion and cardiomegaly. POS: OFF
[2019-10-29] MEDS ORDERED: Azithromycin 250 MG TAB PO SCH (12:00)
[2019-10-29] MEDS ORDERED: predniSONE 20 MG TAB PO SCH (12:15)
[2019-10-29] MEDS: Vancomycin HCl 750 MG in Sodium Chloride 0.9% 250 ML 250 ML IVPB SCH (12:55)
[2019-10-29] MEDS: hydrOXYzine 25 MG TAB PO SCH ×3 (13:04→20:26)
[2019-10-29] MEDS: NS 0.9% w/ 20 MEQ KCL 1,000 ML IV SCH (13:32)
--- NOTE | 2019-10-29 18:41 | PRG ---
DATE OF SERVICE: 10/29/2019 SUBJECTIVE: Ms. Monreal remains significantly dyspneic. She has difficulty in getting to the bedside commode without being profoundly breathless. She is on oxygen 4 L to maintain saturation of 90%. She has a rattly cough, but no purulent sputum or hemoptysis. She has not had any fever. Earlier this admission, there was hope that she could go to a skilled rehab facility for rehabilitation, but she has been resistant, although a bit more willing to consider now. She remains on broad antibiotics (vancomycin and meropenem to which oral azithromycin was added today). Her blood cultures were negative. Her urine grew Klebsiella. She is afebrile. She does not have a significant leukocytosis, although she does have a 23% bands, down from as much as 50% earlier this admission. PHYSICAL EXAMINATION: VITAL SIGNS: Blood pressure 128/60, heart rate is 86, and pulse ox 97 on room air. GENERAL: She has a rattly cough. NECK: She has no adenopathy. LUNGS: Have bilateral rhonchi, but no wheezing. HEART: Regular rate and rhythm. ABDOMEN: Obese. There is no organomegaly. EXTREMITIES: She has 1+ edema. There is no cyanosis or clubbing. LABORATORY DATA: CBC is as noted above. Chemistry today notable for sodium 134, potassium 3.7, chloride 105, CO2 is 21, BUN 23, creatinine 1.2. Her chest x-ray shows mild cardiomegaly. There is an ill-defined infiltrate in the mid zone throughout the right lung. When compared to admission x-ray of 10/23, there is much less inspiratory effort and underpenetration, which probably accounts for the worsened appearance of the x-ray. I am not sure that it is really any different when these two issues are taken into consideration. IMPRESSION: 1. History of cholangiocarcinoma. 2. History of tracheal stent placement and tracheitis. 3. Abnormal chest x-ray. She does not have a leukocytosis, but does have a left shift. She is afebrile. Chest x-ray is not classic for lobar consolidation. She is on very broad antibiotics without any positive cultures to direct therapy. RECOMMENDATIONS: I have strongly encouraged her to be out of bed. I am not sure that the addition of azithromycin adds much to the regimen of vancomycin and meropenem. We certainly do not have evidence of methicillin-resistant Staphylococcus aureus and as such, I am not sure that the vancomycin has a wall. Ideally, she needs to be receiving aggressive therapy. X-ray is so different technically as to make it difficult to say that she is worse and in fact the band count, absence of fever and absence of purulent sputum would all argue that she is at least on the road toward recovery. Pulmonary Service will continue to follow. Job ID: [id number]
[2019-10-30] MEDS: Meropenem 2 GM in Sodium Chloride 0.9% 100 ML IVPB SCH ×2 (05:34→14:40)
[2019-10-30 06:36] LABS: #Lymphocytes 0.3 thou/uL (1.20-3.40); #Monocytes 0.6 thou/uL (0.11-0.59); #Neutrophils 3.9 thou/uL (1.40-6.50); %Basophils 0.1 % (0.0-1.0); %Eosinophils 0.2 % (0.0-10.0); %Lymphocytes 6.8 % (21.0-51.0); %Monocytes 13.2 % (0.0-10.0); %Neutrophils 79.7 % (42.0-75.0); Hemoglobin 8.4 g/dL (12.0-16.0); Mean Corpuscular Hemoglobin 33.9 pg (27.0-31.0); Mean Platelet Volume 8.9 fL (7.4-10.4); Platelet Count 72 thou/uL (130-400); RBC Distribution Width 22.9 % (11.5-14.5); Red Blood Cell (RBC) Count 2.47 mill/uL (4.20-5.40); White Blood Cell (WBC) Count 4.9 thou/uL (4.8-10.8)
[2019-10-30 06:53] LABS: Anion Gap 12 mmol/L (10-20); BUN (Urea Nitrogen) 22 mg/dL (9.8-20.1); Calc. Creatinine Clearance 41 mL/min (70-130); Calcium 8.7 mg/dL (7.8-10.44); Carbon Dioxide 21 mmol/L (23-31); Chloride 106 mmol/L (98-107); Estimated GFR-MDRD 50; Glucose 118 mg/dL (83-110); Sodium 135 mmol/L (136-145)
--- NOTE | 2019-10-30 08:03 | RAD ---
CHEST 1 VIEW PORTABLE: HISTORY: Followup pneumonia. COMPARISON: 10/29/2019. FINDINGS: Stable cardiomegaly and patchy alveolar and ground-glass opacity changes, more so in the right lung. No significant new process. IMPRESSION: Stable cardiomegaly and vascular congestion and patchy alveolar and ground-glass opacity changes thro ughout the right lung. Continue short-term followup. POS: OFF
[2019-10-30] MEDS: predniSONE 20 MG TAB PO SCH ×2 (09:41→20:49)
[2019-10-30] MEDS: Azithromycin 250 MG TAB PO SCH (09:41)
[2019-10-30] MEDS: hydrOXYzine 25 MG TAB PO SCH ×4 (09:43→20:49)
[2019-10-30 11:39] LABS: Vancomycin, Trough 20.8 ug/mL
[2019-10-30] MEDS ORDERED: Vancomycin HCl 500 MG in Sodium Chloride 0.9% 250 ML 250 ML IVPB SCH (12:00)
--- NOTE | 2019-10-30 13:22 | RAD ---
CHEST 1 VIEW PORTABLE: HISTORY: Followup pneumonia. COMPARISON: 10/30/2019. FINDINGS: Patchy parenchymal changes noted mostly in the right lung and left base, possibly very slightly impro marshall from this morning's exam. Stable cardiomegaly. No significant new process. IMPRESSION: Slightly improved parenchymal changes primarily in the right lung and left base. No new process. POS: OFF
[2019-10-30] MEDS: Vancomycin HCl 500 MG in Sodium Chloride 0.9% 100 ML IVPB SCH (13:36)
[2019-10-30] MEDS ORDERED: Acetylcysteine 10% 100 MG/ML 30 ml Vial NEB SCH (14:30)
[2019-10-30] MEDS: Acetylcysteine 10% 100 MG/ML 30 ml Vial NEB SCH ×3 (14:45→22:38)
[2019-10-30] MEDS: Nystatin Powder 15 GM BOT TOP SCH ×2 (15:04→20:49)
--- NOTE | 2019-10-30 19:04 | PRG ---
DATE OF SERVICE: 10/30/2019 SUBJECTIVE: She has been started on Mycelex Troches for presumed oral candidiasis. She is complaining of pain in the epigastric area, I have asked her about taking an antacid and she declines. She has a moderate amount of cough. She is not producing any sputum. Her family is very anxious to get her down to Pulmonary Service in [place] where she has been seen before. They have a feeling that she might "get the magic answer there." She denies any pain or palpitations. Appetite and intake have been very limited. PHYSICAL EXAMINATION: VITAL SIGNS: Blood pressure is 125/56, she is afebrile, heart rate 79, pulse ox is 98% on room air. GENERAL: She is anxious, somewhat writhing about in the bed. HEENT: Oropharynx is noted for Mycelex Oren, which is currently dissolving oropharyngeally. I do not see traditional Antonina. NECK: There is no adenopathy. LUNGS: Show rhonchi. ABDOMEN: There is no palpable guarding, tenderness, or mass in the epigastric area. LABORATORY DATA: White count 4900, hemoglobin is 8.4. Electrolytes today notable for sodium 135, CO2 is 21, BUN 22, creatinine 1.2. IMPRESSION: 1. Cholangiocarcinoma. 2. Consolidation in the bases, atelectasis versus infiltrate. RECOMMENDATIONS: Patient is currently on broad-spectrum antibiotics. She is really in quite a bind from a malignancy standpoint. The family has a great margot in her [employer] in [place] and they would like to get his opinion. They understand that it would be done as an outpatient rather than as a direct transfer. At this point, we will continue current therapies. I am not sure that we expect a whole lot of change on her x-ray and I would wrinkle chaser discharge criteria on the basis of fever, oxygen status, and leukocytosis rather than radiograph. Job ID: [id number]
[2019-10-30] MEDS: ADMIXTURE FEE IVPB SCH (21:41)
[2019-10-30] MEDS: MEROPENEM IVPB SCH (21:41)
[2019-10-30] MEDS: Acetaminophen 325 MG TAB PO PRN (21:41)
[2019-10-31] MEDS: Acetylcysteine 10% 100 MG/ML 30 ml Vial NEB SCH ×6 (02:22→21:53)
[2019-10-31] MEDS: MEROPENEM IVPB SCH (05:51)
[2019-10-31] MEDS: ADMIXTURE FEE IVPB SCH (05:51)
[2019-10-31 06:29] LABS: #Lymphocytes 0.3 thou/uL (1.20-3.40); #Monocytes 0.6 thou/uL (0.11-0.59); #Neutrophils 5.3 thou/uL (1.40-6.50); %Basophils 0.4 % (0.0-1.0); %Eosinophils 0.4 % (0.0-10.0); %Lymphocytes 4.2 % (21.0-51.0); %Monocytes 9.2 % (0.0-10.0); %Neutrophils 85.8 % (42.0-75.0); Hemoglobin 8.2 g/dL (12.0-16.0); Mean Corpuscular HGB CONC 31.9 g/dL (32.0-36.0); Mean Corpuscular Hemoglobin 34.8 pg (27.0-31.0); Mean Platelet Volume 9.1 fL (7.4-10.4); Platelet Count 66 thou/uL (130-400); RBC Distribution Width 22.5 % (11.5-14.5); Red Blood Cell (RBC) Count 2.35 mill/uL (4.20-5.40); White Blood Cell (WBC) Count 6.2 thou/uL (4.8-10.8)
[2019-10-31 06:40] LABS: Anion Gap 10 mmol/L (10-20); BUN (Urea Nitrogen) 22 mg/dL (9.8-20.1); Calc. Creatinine Clearance 39 mL/min (70-130); Calcium 8.5 mg/dL (7.8-10.44); Carbon Dioxide 23 mmol/L (23-31); Chloride 108 mmol/L (98-107); Estimated GFR-MDRD 50; Glucose 139 mg/dL (83-110); Potassium 3.8 mmol/L (3.5-5.1); Sodium 137 mmol/L (136-145)
[2019-10-31] MEDS ORDERED: Meropenem 2 GM in Sodium Chloride 0.9% 100 ML IVPB SCH (07:00)
[2019-10-31 07:26] LABS: Band 20 % (5-11); Lymphocytes 8 % (21-51); MDiff Complete? YES; Macrocytosis SLIGHT = 6-15 cells (100X) (0-5/hpf); Monocytes 8 % (0-10); Neutrophil 64 % (42-75); Platelet Morphology Comment Appears Decreased; Schistocytes SLIGHT = 2-5 cells (100X) (0-1/hpf)
--- NOTE | 2019-10-31 07:56 | RAD ---
Exam: Chest one view HISTORY:Follow-up pneumonia Comparison: 10/30/2019 FINDINGS: Cardiac silhouette:Cardiomegaly. Aorta: Atherosclerosis Pulmonary vessels: Normal Costophrenic angles: Right-sided pleural effusion LUNGS: Scattered interstitial opacities involving the left and right lung. More focal alveolar opacif ication in the right lower lobe and right upper lobe. Pneumothorax: None Osseous abnormalities: None IMPRESSION: Multi lobar pneumonia.
[2019-10-31] MEDS: Nystatin Powder 15 GM BOT TOP SCH ×2 (09:53→21:31)
[2019-10-31] MEDS: predniSONE 20 MG TAB PO SCH ×2 (09:53→20:53)
[2019-10-31] MEDS: Azithromycin 250 MG TAB PO SCH (09:53)
[2019-10-31] MEDS: hydrOXYzine 25 MG TAB PO SCH ×4 (09:54→20:53)
--- NOTE | 2019-10-31 11:09 | PRG ---
DATE OF SERVICE: 10/31/2019 SUBJECTIVE: Sirisha Monreal is a 78-year-old female. This morning, she is awake, alert, responsive, still having difficulty handling her secretions, though she says she is less short of breath. OBJECTIVE: VITAL SIGNS: Temperature 98, respirations 18, saturations room air, blood pressure 142/64. CHEST: Anterior rhonchi. CARDIAC: Normal S1, S2. No gallops. ABDOMEN: Soft. LABORATORY DATA: Creatinine 1.27. White count H and H 8 and 25, and platelet count 66. So far, all cultures that I see are negative. I do not see any sputum culture. ASSESSMENT AND PLAN: Tracheitis secondary to a tracheal stent, severe deconditioning, cholangiocarcinoma, atelectasis, mild azotemia. I may consider discontinue the vancomycin. She has already got azotemia. No evidence of any methicillin-resistant Staphylococcus aureus at this time. Not much else to offer at this stage. She probably needs to go back to her interventional pulmonary doctor in [place], [place]. Job ID: [id number]
[2019-10-31] MEDS: Vancomycin HCl 500 MG in Sodium Chloride 0.9% 100 ML IVPB SCH (12:50)
[2019-10-31] MEDS: Meropenem 2 GM in Sodium Chloride 0.9% 100 ML IVPB SCH ×2 (15:03→20:53)
[2019-10-31] MEDS: NS 0.9% w/ 20 MEQ KCL 1,000 ML IV SCH (16:50)
[2019-11-01] MEDS: Acetylcysteine 10% 100 MG/ML 30 ml Vial NEB SCH ×6 (03:33→22:44)
[2019-11-01] MEDS ORDERED: MEROPENEM IVPB SCH (06:00)
[2019-11-01] MEDS ORDERED: ADMIXTURE FEE IVPB SCH (06:00)
[2019-11-01 06:09] LABS: #Lymphocytes 0.4 thou/uL (1.20-3.40); #Monocytes 0.5 thou/uL (0.11-0.59); #Neutrophils 8.5 thou/uL (1.40-6.50); %Basophils 0.1 % (0.0-1.0); %Eosinophils 0.1 % (0.0-10.0); %Monocytes 4.9 % (0.0-10.0); %Neutrophils 90.9 % (42.0-75.0); Hemoglobin 8.4 g/dL (12.0-16.0); Mean Corpuscular HGB CONC 32.4 g/dL (32.0-36.0); Mean Corpuscular Hemoglobin 35.2 pg (27.0-31.0); Platelet Count 70 thou/uL (130-400); RBC Distribution Width 22.9 % (11.5-14.5); Red Blood Cell (RBC) Count 2.39 mill/uL (4.20-5.40); White Blood Cell (WBC) Count 9.3 thou/uL (4.8-10.8)
--- NOTE | 2019-11-01 07:46 | RAD ---
Chest AP view INDICATION: Pneumonia COMPARISON: October 31, 2019 FINDINGS: Lungs: There is stable multifocal airspace disease involving the right lung and left lung base Cardiac silhouette: There is stable cardiomegaly Pulmonary vasculature: There is stable mild pulmonary vascular congestion Pleural spaces: Small bilateral pleural effusions persist Upper abdomen: No abnormality seen. Osseous structures: No acute osseous abnormality. Additional findings: None. IMPRESSION: Stable exam
[2019-11-01] MEDS: Azithromycin 250 MG TAB PO SCH (08:15)
[2019-11-01] MEDS: Nystatin Powder 15 GM BOT TOP SCH ×2 (08:16→20:07)
[2019-11-01] MEDS: hydrOXYzine 25 MG TAB PO SCH ×4 (08:16→20:04)
[2019-11-01] MEDS: predniSONE 20 MG TAB PO SCH ×2 (08:17→20:04)
--- NOTE | 2019-11-01 11:44 | PRG ---
DATE OF SERVICE: 11/01/2019 SUBJECTIVE: Sirisha Monreal remains in the hospital. OBJECTIVE: VITAL SIGNS: Temperature 98, pulse 71, respirations 18, sats 95% on room air, blood pressure 130/65. GENERAL: She is weak, but denies any fever, chills, or cough. CHEST: No wheezing. No crackles. CARDIAC: Normal S1, S2. No gallops. ABDOMEN: No masses. IMPRESSION AND PLAN: 1. Status post tracheobronchitis. 2. Respiratory failure. 3. Cardiomegaly. 4. Pneumonia. At this stage, not much to add to present regime. She has cholangiocarcinoma. She has tracheitis, aspiration pneumonia in place. I will switch her to oral antibiotics. She could be discharged home anytime. Follow up with the primary care physician. Job ID: [id number]
[2019-11-01] MEDS: Vancomycin HCl 500 MG in Sodium Chloride 0.9% 100 ML IVPB SCH (12:36)
[2019-11-01] MEDS ORDERED: Vancomycin HCl 500 MG in Sodium Chloride 0.9% 100 ML IVPB SCH (13:00)
[2019-11-01] MEDS: Meropenem 2 GM in Sodium Chloride 0.9% 100 ML IVPB SCH ×2 (14:35→21:46)
[2019-11-01] MEDS: NS 0.9% w/ 20 MEQ KCL 1,000 ML IV SCH (17:01)
[2019-11-01] MEDS ORDERED: Furosemide 20 MG/2 ML VIAL SLOW IVP SCH (17:15)
[2019-11-02] MEDS: Acetylcysteine 10% 100 MG/ML 30 ml Vial NEB SCH ×6 (02:24→22:22)
[2019-11-02] MEDS: Meropenem 2 GM in Sodium Chloride 0.9% 100 ML IVPB SCH (06:37)
[2019-11-02] MEDS: hydrOXYzine 25 MG TAB PO SCH ×4 (09:15→20:39)
[2019-11-02] MEDS: Azithromycin 250 MG TAB PO SCH (09:16)
[2019-11-02] MEDS: predniSONE 20 MG TAB PO SCH ×2 (09:16→20:39)
[2019-11-02] MEDS: Nystatin Powder 15 GM BOT TOP SCH ×2 (09:17→20:40)
--- NOTE | 2019-11-02 10:43 | PRG ---
DATE OF SERVICE: 11/02/2019 SUBJECTIVE: This morning, she is awake, responsive. Denies difficulty breathing. OBJECTIVE: VITAL SIGNS: on room air, blood pressure 150/72. CHEST: No wheezing. No crackles. CARDIAC: Normal S1 and S2. No gallops. ABDOMEN: Soft. ASSESSMENT AND PLAN: Urinary tract infection, Klebsiella, tracheobronchitis. All cultures are negative. I am going to switch antibiotics. Can be discharged home any time. Follow up with her interventional pulmonary physician regarding tracheitis. Job ID: [id number]
[2019-11-02] MEDS ORDERED: Furosemide 40 MG TAB PO SCH (14:45)
[2019-11-02 20:07] VITALS: TEMP 98.2
[2019-11-02] MEDS: Cefdinir 300 MG CAP PO SCH (20:39)
[2019-11-03] MEDS: Acetylcysteine 10% 100 MG/ML 30 ml Vial NEB SCH ×2 (02:18→07:48)
[2019-11-03 08:36] VITALS: BP 191/87
[2019-11-03] MEDS: Cefdinir 300 MG CAP PO SCH (10:09)
[2019-11-03] MEDS: Nystatin Powder 15 GM BOT TOP SCH (10:10)
[2019-11-03] MEDS: hydrOXYzine 25 MG TAB PO SCH (10:10)
[2019-11-03] MEDS: predniSONE 20 MG TAB PO SCH (10:10)
--- NOTE | 2019-11-03 10:31 | PRG ---
DATE OF SERVICE: 11/03/2019 SUBJECTIVE: Sirisha Monreal remains afebrile after all the IV antibiotics were discontinued. OBJECTIVE: VITAL SIGNS: Temperature 98.7, respirations 18, sats on room air, blood pressure 119/87. LUNGS: Denies any difficulty breathing. CHEST: No wheezing. No crackles. CARDIAC: Normal S1. No gallops. ABDOMEN: No masses. ASSESSMENT: Tracheitis, status post stent, cholangiocarcinoma. PLAN: She can be discharged home any time on oral medication. Follow up with the primary care physician. Job ID: [id number]
== END 2019-11-03 10:25 | disposition home or self-care (01) | DRG 871 ==
LOC: ERS 10:08 → ERHOLD 12:25 → IMCU/EMU 15:00 → ONC 10-26 21:27
PROVIDERS: ADMIT Specialist; ATTEND Specialist
DX: A41.9 Sepsis, unspecified organism (principal); J18.9 Pneumonia, unspecified organism; J69.0 Pneumonitis due to inhalation of food and vomit; J96.90 Respiratory failure, unspecified, unspecified whether with hypoxia or hypercapnia; J44.0 Chronic obstructive pulmonary disease with (acute) lower respiratory infection; I13.0 Hypertensive heart and chronic kidney disease with heart failure and stage 1 through stage 4 chronic kidney disease, or unspecified chronic kidney disease; C22.1 Intrahepatic bile duct carcinoma; D61.818 Other pancytopenia; Z20.828 Contact with and (suspected) exposure to other viral communicable diseases; N30.90 Cystitis, unspecified without hematuria; B96.1 Klebsiella pneumoniae [K. pneumoniae] as the cause of diseases classified elsewhere; K21.9 Gastro-esophageal reflux disease without esophagitis; I50.9 Heart failure, unspecified; E87.6 Hypokalemia; E11.22 Type 2 diabetes mellitus with diabetic chronic kidney disease; J04.10 Acute tracheitis without obstruction; N18.9 Chronic kidney disease, unspecified; I25.10 Atherosclerotic heart disease of native coronary artery without angina pectoris; Z86.010 Personal history of colon polyps; Z87.11 Personal history of peptic ulcer disease; Z90.49 Acquired absence of other specified parts of digestive tract; Z87.891 Personal history of nicotine dependence; Z88.5 Allergy status to narcotic agent; Z88.0 Allergy status to penicillin; Z88.7 Allergy status to serum and vaccine; Z88.8 Allergy status to other drugs, medicaments and biological substances; Z79.899 Other long term (current) drug therapy; Z98.51 Tubal ligation status
CPT/HCPCS: 36415; 36600; 51701; 71045; 80048; 80053; 80202; 81003; 81015; 82553; 83605; 84484; 85025; 87040; 87077; 87086; 87186; 87804; 94640; 96361; 96365; 96366; 96375; C9113; J0692; J1940; J2185; J3370; J3480; J3490; J7050; J7512; J7608; J7620; Q0163; U0002

== ENCOUNTER 2019-11-07 11:21 | Day surgery (SDC) | payer MEDICARE, OTHER ==
[2019-11-07] MEDS ORDERED: EPOETIN ALFA-EPBX (ESRD) 40,000 UNIT/ML VIAL ONE (11:24)
[2019-11-07 11:38] VITALS: BP 140/66; TEMP 98.8
== END 2019-11-07 11:38 | disposition home or self-care (01) ==
LOC: ONC/OP 11:21
PROVIDERS: ATTEND Internal Medicine Hematology & Oncology
DX: N18.9 Chronic kidney disease, unspecified (principal); D63.1 Anemia in chronic kidney disease; D50.0 Iron deficiency anemia secondary to blood loss (chronic); C22.1 Intrahepatic bile duct carcinoma; K74.69 Other cirrhosis of liver; D72.818 Other decreased white blood cell count; Z88.0 Allergy status to penicillin; Z88.1 Allergy status to other antibiotic agents; Z88.5 Allergy status to narcotic agent; Z88.6 Allergy status to analgesic agent; Z88.7 Allergy status to serum and vaccine
CPT/HCPCS: 96372; Q5105

== ENCOUNTER 2019-11-20 15:02 | Emergency (ER) | payer MEDICARE, MEDICAID ==
[~2019-11-20 15:02] MED LIST: Iopamidol-370 76% 500 ML 1 ML ONE
[2019-11-20 15:26] LABS: #Lymphocytes 0.5 thou/uL (1.20-3.40); #Monocytes 0.6 thou/uL (0.11-0.59); #Neutrophils 4.3 thou/uL (1.40-6.50); %Eosinophils 0.7 % (0.0-10.0); %Lymphocytes 9.7 % (21.0-51.0); %Monocytes 11.3 % (0.0-10.0); %Neutrophils 78.3 % (42.0-75.0); Hemoglobin 7.8 g/dL (12.0-16.0); Mean Corpuscular Hemoglobin 37.3 pg (27.0-31.0); Mean Platelet Volume 9.4 fL (7.4-10.4); Platelet Count 73 thou/uL (130-400); RBC Distribution Width 20.3 % (11.5-14.5); Red Blood Cell (RBC) Count 2.08 mill/uL (4.20-5.40); White Blood Cell (WBC) Count 5.5 thou/uL (4.8-10.8)
[2019-11-20 15:45] LABS: ALT (SGPT) 7 U/L (8-55); AST (SGOT) 18 U/L (5-34); Albumin 2.4 g/dL (3.4-4.8); Alkaline Phosphatase 46 U/L (40-110); Anion Gap 12 mmol/L (10-20); BUN (Urea Nitrogen) 19 mg/dL (9.8-20.1); Bilirubin, Total 1.1 mg/dL (0.2-1.2); Calc. Creatinine Clearance 0 mL/min (70-130); Calcium 7.9 mg/dL (7.8-10.44); Carbon Dioxide 24 mmol/L (23-31); Chloride 105 mmol/L (98-107); Estimated GFR-MDRD 39; Globulin 3.4 g/dL (2.4-3.5); Glucose 70 mg/dL (83-110); Potassium 3.6 mmol/L (3.5-5.1); Protein, Total 5.8 g/dL (6.0-8.3); Sodium 137 mmol/L (136-145)
[2019-11-20 15:52] LABS: Anisocytosis SLIGHT = 6-15 cells (100X) (0-5/hpf); Hypochromia SLIGHT = 6-15 cells (100X) (0-5/hpf); MDiff Complete? YES; Macrocytosis SLIGHT = 6-15 cells (100X) (0-5/hpf); Platelet Morphology Comment Appears Decreased; Polychromasia SLIGHT = 2-3 cells (100X) (0-2/hpf); Schistocytes SLIGHT = 2-5 cells (100X) (0-1/hpf); Tear Drops SLIGHT = 2-5 cells (100X) (0-1/hpf)
--- NOTE | 2019-11-20 16:16 | RAD ---
XR Chest Pa Lat STANDARD History: Lower extremity edema Comparison: Radiograph November 01 2019 Findings: Abnormal nodular densities project on the alicia bilaterally as well as the right lower lobe. This appears slightly more confluent in the comparison examination. Heart size is enlarged. Small effusions. No pneumothorax. No acute osseous abnormality. Impression: 1. Confluent nodularity of the right lung concerning for possible mass/metastatic disease. Nonemergen t chest CT may be beneficial. 2. Findings of low-grade congestive heart failure.
[2019-11-20] MEDS ORDERED: Furosemide 40 MG/4 ML VIAL ONE (19:25)
--- NOTE | 2019-11-20 20:39 | CT ---
CT Chest W Con History: Edema Comparison: Radiograph same day. CT of the chest 2015 FINDINGS: bronchovascular nodules and consolidation of the right lung. Left lung is relatively clear. Moderate right effusion. Tracheal stent graft is present. Heart size is enlarged. Hepatic cirrhosis is present with extensive portosystemic shunting. 3 cm hypo density hepatic segment 8 near the dome highly concerning for hepatocellular carcinoma. Suture is noted along the stomach, incompletely evaluated. Aortic contour is nonaneurysmal. No acute thoracic spine compression deformity. Multiple healing left -sided anterior rib fractures. No acute displaced rib fracture. Impression: 1. Findings of multifocal right lung pneumonia with a moderate right parapneumonic effusion. Follow-u p radiographs after treatment recommended. 2. Intact tracheal stent graft. 3. reactive paratracheal lymph nodes. 4. Incidental note is made of a hepatic hypodensity of segment 8 near the dome measuring 3 cm concern ing for underlying malignancy given background cirrhosis. Nonemergent liver protocol CT or MRI recommended. 5. Sequelae of portal hypertension with extensive portosystemic shunting.
== END 2019-11-20 22:30 | disposition home or self-care (01) ==
LOC: ERS 15:02
DX: R60.0 Localized edema (principal); J90 Pleural effusion, not elsewhere classified; I48.91 Unspecified atrial fibrillation; J44.9 Chronic obstructive pulmonary disease, unspecified; I10 Essential (primary) hypertension; K21.9 Gastro-esophageal reflux disease without esophagitis; Z87.891 Personal history of nicotine dependence; Z79.899 Other long term (current) drug therapy
CPT/HCPCS: 36415; 71046; 71260; 80053; 83880; 84484; 85025; 93005; 96374; J1940; Q9967

== ENCOUNTER 2019-11-21 12:02 | Day surgery (SDC) | payer MEDICARE, MEDICAID ==
[2019-11-21] MEDS ORDERED: EPOETIN ALFA-EPBX (ESRD) 40,000 UNIT/ML VIAL ONE (12:04)
[2019-11-21] MEDS ORDERED: EPOETIN ALFA-EPBX (ESRD) 40,000 UNIT/ML VIAL SC SCH (13:00)
== END 2019-11-21 12:14 | disposition home or self-care (01) ==
LOC: ONC/OP 12:02
PROVIDERS: ATTEND Internal Medicine Hematology & Oncology
DX: N18.9 Chronic kidney disease, unspecified (principal); D63.1 Anemia in chronic kidney disease; D50.0 Iron deficiency anemia secondary to blood loss (chronic); D72.818 Other decreased white blood cell count; K74.69 Other cirrhosis of liver; C22.1 Intrahepatic bile duct carcinoma; Z88.0 Allergy status to penicillin; Z88.1 Allergy status to other antibiotic agents; Z88.5 Allergy status to narcotic agent; Z88.6 Allergy status to analgesic agent; Z88.7 Allergy status to serum and vaccine; Z91.040 Latex allergy status
CPT/HCPCS: 96372; Q5105

== ENCOUNTER 2019-11-28 10:57 | Day surgery (SDC) | payer MEDICARE, MEDICAID ==
[2019-11-28] MEDS ORDERED: EPOETIN ALFA-EPBX (ESRD) 40,000 UNIT/ML VIAL ONE (11:02)
[2019-11-28 11:08] VITALS: BP 117/59; TEMP 98.5
== END 2019-11-28 12:40 | disposition home or self-care (01) ==
LOC: ONC/OP 10:57
PROVIDERS: ATTEND Internal Medicine Hematology & Oncology
DX: N18.9 Chronic kidney disease, unspecified (principal); D63.1 Anemia in chronic kidney disease; C22.1 Intrahepatic bile duct carcinoma; D50.0 Iron deficiency anemia secondary to blood loss (chronic); D72.818 Other decreased white blood cell count; Z88.0 Allergy status to penicillin; Z88.1 Allergy status to other antibiotic agents; Z88.5 Allergy status to narcotic agent; Z88.6 Allergy status to analgesic agent; Z88.7 Allergy status to serum and vaccine
CPT/HCPCS: 96372; Q5105

== ENCOUNTER 2019-11-29 21:57 | Observation (INO) | payer MEDICARE, MEDICAID, OTHER ==
[2019-11-29] MEDS ORDERED: Furosemide 40 MG/4 ML VIAL ONE (22:39)
[2019-11-29 23:07] LABS: Hemoglobin 7.8 g/dL (12.0-16.0); Mean Corpuscular HGB CONC 30.5 g/dL (32.0-36.0); Mean Corpuscular Hemoglobin 34.9 pg (27.0-31.0); Platelet Count 121 thou/uL (130-400); RBC Distribution Width 19.8 % (11.5-14.5); Red Blood Cell (RBC) Count 2.24 mill/uL (4.20-5.40); White Blood Cell (WBC) Count 3.7 thou/uL (4.8-10.8)
[2019-11-29 23:21] LABS: ALT (SGPT) 9 U/L (8-55); AST (SGOT) 17 U/L (5-34); Albumin 2.3 g/dL (3.4-4.8); Alkaline Phosphatase 51 U/L (40-110); Anion Gap 10 mmol/L (10-20); BUN (Urea Nitrogen) 26 mg/dL (9.8-20.1); Bilirubin, Total 0.6 mg/dL (0.2-1.2); Calc. Creatinine Clearance 0 mL/min (70-130); Calcium 8.1 mg/dL (7.8-10.44); Carbon Dioxide 21 mmol/L (23-31); Chloride 110 mmol/L (98-107); Estimated GFR-MDRD 28; Globulin 3.8 g/dL (2.4-3.5); Glucose 84 mg/dL (83-110); Potassium 4.1 mmol/L (3.5-5.1); Protein, Total 6.1 g/dL (6.0-8.3); Sodium 137 mmol/L (136-145)
[2019-11-29] MEDS ORDERED: Vancomycin 1 GM/200 ML BAG ONE (23:21)
[2019-11-29 23:30] LABS: Band 3 % (5-11); Eosinophils 3 % (0-10); Hypochromia SLIGHT = 6-15 cells (100X) (0-5/hpf); Lymphocytes 30 % (21-51); MDiff Complete? YES; Macrocytosis SLIGHT = 6-15 cells (100X) (0-5/hpf); Neutrophil 64 % (42-75); Platelet Morphology Comment Appears Adequate
[2019-11-30] MEDS ORDERED: Acetaminophen 500 MG TAB PO PRN (02:06)
[2019-11-30] MEDS ORDERED: Ondansetron ODT 4 MG TAB SL PRN (02:15)
[2019-11-30] MEDS ORDERED: Ondansetron PF 4 MG/2 ML Vial IVP PRN ×2 (02:15→08:26)
--- NOTE | 2019-11-30 07:15 | ULT ---
BILATERAL LOWER EXTREMITY DOPPLER VENOUS ULTRASOUND: Date: 11/30/2019 INDICATION: History of bilateral lower extremity edema and pain. TECHNIQUE: Hale scale, color Doppler, and vascular duplex with spectral analysis was performed of the deep venou s structures of the bilateral lower extremities. The common femoral vein, superficial femoral vein, proximal greater saphenous vein, proximal greater profunda vein, popliteal, and posterior tibial vein s were assessed. FINDINGS: Normal compression, flow, and augmentation was seen within the deep venous structures of both lower e xtremities. IMPRESSION: No evidence of deep venous thrombosis within both lower extremities. POS: CRISTIAN
[2019-11-30] MEDS ORDERED: Albuterol 200 PUFF (6.7GM INHALER) INH PRN (08:28)
--- NOTE | 2019-11-30 08:37 | HP ---
CHIEF COMPLAINT ON ADMISSION: Cellulitis of the lower extremities, edema of the lower extremities, leukopenia, and chronic anemia. HISTORY OF PRESENT ILLNESS: The patient is a 78-year-old female recently admitted and discharged from [facility] for the similar reasons. She was seen in followup in Dr. Yoder's clinic approximately a week ago, at which time, her diuretics were increased. At that point in her office visit, she had 4+ edema in both lower extremities. She has preventing presenting to the ER tonight with what looks like 2+ edema in bilateral extremities. The daughter is her historian stating that it hurts. There has been no fever. Dr. Yoder was contacted by the emergency room physician for admission. Her white count is 3.7, hemoglobin is 7.8, and hematocrit 25.7. PAST MEDICAL HISTORY: As mentioned previously, recently hospitalized for similar condition and has done well since that discharge, was hospitalized in the month previous to that for sepsis with pneumonia. She has liver cancer and is receiving chemotherapy. She has longstanding atrial fibrillation, cannot be anticoagulated due to GI bleeds. She has COPD. She had long-term ET tube placement causing tracheomalacia requiring stent placement for that. She has hypertension, severe GERD, abdominal hernia, esophageal strictures occasionally requiring dilatation, history of pancreatitis, colon polyps, CHF, peptic ulcer disease, and coronary artery disease. She has had respiratory distress syndrome with recurrent pneumonia and vitamin D deficiency. PAST SURGICAL HISTORY: Includes cholecystectomy, removal of colon polyps, tracheal stent placement, Billroth II gastric surgery, cardiac stents, section x3, tubal ligation, cyst removed from her stomach twice and tracheostomy due to fluid in her lungs back in 2007. PSYCHIATRIC HISTORY: Negative. SOCIAL HISTORY: Former smoker, quit 13 years ago with a greater than 30 pack years. Denies alcohol or illicit drug use. Lives at home with her daughter. FAMILY HISTORY: Significant for diabetes and hypertension. She has. ALLERGIES: SHE HAS MULTIPLE ALLERGIES TO ASPIRIN, CIPROFLOXACIN, CLARITHROMYCIN, DOXYCYCLINE, FLU VACCINE, KEFLEX, MORPHINE, PENICILLIN, AND PNEUMOCOCCAL VACCINE. MEDICATIONS ON ADMISSION: Include; 1. Furosemide 40 mg b.i.d. 2. Losartan 50 mg once a day. 3. Potassium supplementation. 4. Occasional use of tramadol 50 mg p.r.n. pain. 5. Mavyret 100 to 400 mg once daily. 6. Capecitabine 1 tablet daily. REVIEW OF SYSTEMS: GENERAL: Denies fever, chills, or malaise. HEENT: Denies drainage or lesions in eyes, ears, nose, or throat. CHEST: She has chronic cough, but no dyspnea. CARDIOVASCULAR: Denies palpitations or chest pain. GI: Denies nausea, vomiting, or diarrhea. : Denies blood in urine or stool or painful defecation. MUSCULOSKELETAL: She has generalized weakness in all her extremities, but no areas of acute pain at this time. SKIN: No new rashes or lesions. NEUROLOGIC: Mental status is at baseline. Denies headaches, blurred vision, or trouble with mentation. PSYCHIATRIC: Denies depression. PHYSICAL EXAMINATION: At the time of admission; VITAL SIGNS: Blood pressure 112/77, pulse is 72, temperature 97.9, respirations 20, O2 saturation 97% on room air. Weight is 149 pounds. GENERAL: This is a well-developed, well-nourished, female, alert, oriented, cooperative, in her usual state of health. HEENT: Normocephalic and atraumatic. Arcus senilis bilaterally. TMs, nares, and pharynx clear. NECK: Supple. Trachea midline. CHEST: With generally diminished breath sounds, but no acute findings. HEART: Regular rate and rhythm without murmur. BREASTS: Deferred. ABDOMEN: Soft and nontender. Large abdominal hernia noted. No new findings. : Deferred. EXTREMITIES: Without clubbing or cyanosis. There is 2+ edema in the bilateral extremities with no appreciable heat or erythema that I can detect. The patient states that these legs were very tender in her early exam, but have improved. NEUROLOGIC: Cranial nerves are intact. Unable to test gait and cerebral function at this time. Sensory exam is grossly intact. Mental status is at baseline. LABORATORY DATA: On admission shows WBCs at 3.7, hemoglobin 7.8, and hematocrit 25.7 with platelets at 121. Sodium at 137, potassium 4.1, chloride 110, carbon dioxide 21, BUN 26, and creatinine 2.05. BNP slightly elevated at 243. Troponin I is 0.025. Low albumin. ASSESSMENT: Leukopenia, lower extremity edema, renal insufficiency, chronic anemia, hypoalbuminemia, and mild congestive heart failure, systolic. PLAN: The plan will be to continue IV antibiotics for now. Serially evaluate her, call-in Wound Care. Continue diuresis. We will follow her H and H for today. Serially re-evaluate the patient, follow her weights. Job ID: [id number]
[2019-11-30] MEDS: guaiFENesin ER 600 MG TAB PO SCH ×2 (10:02→20:03)
[2019-11-30] MEDS: Potassium Chloride 20 MEQ TAB PO SCH ×2 (10:02→20:03)
[2019-11-30] MEDS: Furosemide 40 MG/4 ML VIAL SLOW IVP SCH ×2 (10:03→20:03)
[2019-11-30] MEDS: Losartan 25 MG TAB PO SCH (10:06)
[2019-11-30 11:15] LABS: SARS-CoV-2 MS2 Positive; SARS-CoV-2 N Gene Negative; SARS-CoV-2 S Gene Negative; SARS-CoV-2 by NAA Not Detected (NotDetected); SARS-CoV-2 orf1ab Negative
[2019-11-30 12:17] VITALS: BMI 30.9
[2019-11-30] MEDS: Acetaminophen 325 MG TAB PO PRN (19:55)
[2019-11-30] MEDS: Mometasone 200 MCG/Formoterol 5 MCG 120 PUFF INHALER INH SCH (21:18)
[2019-11-30] MEDS ORDERED: Vancomycin HCl 750 MG in Sodium Chloride 0.9% 250 ML 250 ML IVPB SCH ×2 (22:00→23:59)
[2019-11-30 22:32] LABS: Vancomycin, Random 8.8 ug/mL (See Comment)
[2019-12-01] MEDS: Acetaminophen 325 MG TAB PO PRN (01:56)
[2019-12-01 06:26] LABS: #Eosinphils 0.1 thou/uL (0.0-0.7); #Lymphocytes 0.4 thou/uL (1.20-3.40); #Monocytes 0.8 thou/uL (0.11-0.59); #Neutrophils 4.2 thou/uL (1.40-6.50); %Basophils 0.4 % (0.0-1.0); %Lymphocytes 7.9 % (21.0-51.0); %Monocytes 14.8 % (0.0-10.0); %Neutrophils 75.9 % (42.0-75.0); Hemoglobin 8.5 g/dL (12.0-16.0); Mean Corpuscular HGB CONC 30.1 g/dL (32.0-36.0); Mean Corpuscular Hemoglobin 35.4 pg (27.0-31.0); Mean Platelet Volume 8.7 fL (7.4-10.4); Platelet Count 111 thou/uL (130-400); Red Blood Cell (RBC) Count 2.41 mill/uL (4.20-5.40); White Blood Cell (WBC) Count 5.5 thou/uL (4.8-10.8)
[2019-12-01] MEDS: Mometasone 200 MCG/Formoterol 5 MCG 120 PUFF INHALER INH SCH (06:29)
[2019-12-01 06:33] LABS: Anion Gap 12 mmol/L (10-20); BUN (Urea Nitrogen) 24 mg/dL (9.8-20.1); Calc. Creatinine Clearance 30 mL/min (70-130); Calcium 7.9 mg/dL (7.8-10.44); Carbon Dioxide 20 mmol/L (23-31); Chloride 110 mmol/L (98-107); Estimated GFR-MDRD 36; Glucose 81 mg/dL (83-110); Potassium 4.3 mmol/L (3.5-5.1); Sodium 138 mmol/L (136-145)
[2019-12-01] MEDS: Furosemide 40 MG/4 ML VIAL SLOW IVP SCH (08:12)
[2019-12-01] MEDS: Losartan 25 MG TAB PO SCH (08:13)
[2019-12-01] MEDS: guaiFENesin ER 600 MG TAB PO SCH (08:13)
[2019-12-01] MEDS: Potassium Chloride 20 MEQ TAB PO SCH (08:13)
[2019-12-01 11:57] VITALS: BP 140/78; TEMP 98.2
[2019-12-02] MEDS ORDERED: Vancomycin HCl 750 MG in Sodium Chloride 0.9% 250 ML 250 ML IVPB SCH (01:00)
== END 2019-12-01 12:08 | disposition home or self-care (01) ==
LOC: ERS 21:57 → T4-A 11-30 01:27 → INTOOBSV 11-30 01:27
PROVIDERS: ADMIT Specialist; ATTEND Specialist
DX: L03.115 Cellulitis of right lower limb (principal); L03.116 Cellulitis of left lower limb; E88.09 Other disorders of plasma-protein metabolism, not elsewhere classified; D72.819 Decreased white blood cell count, unspecified; J44.9 Chronic obstructive pulmonary disease, unspecified; I11.0 Hypertensive heart disease with heart failure; I50.20 Unspecified systolic (congestive) heart failure; I25.10 Atherosclerotic heart disease of native coronary artery without angina pectoris; D64.9 Anemia, unspecified; C22.8 Malignant neoplasm of liver, primary, unspecified as to type; K21.9 Gastro-esophageal reflux disease without esophagitis; I48.91 Unspecified atrial fibrillation; N19 Unspecified kidney failure; Z79.899 Other long term (current) drug therapy; Z88.0 Allergy status to penicillin; Z88.1 Allergy status to other antibiotic agents; Z88.5 Allergy status to narcotic agent; Z88.6 Allergy status to analgesic agent; Z88.7 Allergy status to serum and vaccine; Z87.891 Personal history of nicotine dependence; Z95.5 Presence of coronary angioplasty implant and graft
CPT/HCPCS: 80048; 80053; 80202; 82274; 83880; 84484; 85025 ×2; 87040; 93970; 94640; 96376 ×2; 97139; G0378 ×2; U0003; 36415; 87635; 96365; 96375; J1940; J3370; J7050

== ENCOUNTER 2019-12-05 09:55 | Day surgery (SDC) | payer MEDICARE, MEDICAID ==
[2019-12-05] MEDS ORDERED: EPOETIN ALFA-EPBX (ESRD) 40,000 UNIT/ML VIAL ONE (10:03)
[2019-12-05 10:18] VITALS: BP 147/67; TEMP 98.1
== END 2019-12-05 11:26 | disposition home or self-care (01) ==
LOC: ONC/OP 09:55
PROVIDERS: ATTEND Internal Medicine Hematology & Oncology
DX: N18.9 Chronic kidney disease, unspecified (principal); D63.1 Anemia in chronic kidney disease; D50.0 Iron deficiency anemia secondary to blood loss (chronic); C22.1 Intrahepatic bile duct carcinoma; K74.69 Other cirrhosis of liver; D72.818 Other decreased white blood cell count; Z88.0 Allergy status to penicillin; Z88.1 Allergy status to other antibiotic agents; Z88.5 Allergy status to narcotic agent; Z88.6 Allergy status to analgesic agent; Z88.7 Allergy status to serum and vaccine; Z91.040 Latex allergy status
CPT/HCPCS: 36415; 80053; 82248; 83615; 84100; 84550; 96372; Q5105

== ENCOUNTER 2019-12-19 10:55 | Day surgery (SDC) | payer MEDICARE, MEDICAID ==
[~2019-12-19 10:55] MED LIST changes: +EPOETIN ALFA-EPBX (ESRD) 40,000 UNIT/ML VIAL SC SCH; -Iopamidol-370 76% 500 ML 1 ML ONE
[2019-12-19 11:03] VITALS: BP 118/63
== END 2019-12-19 11:11 | disposition home or self-care (01) ==
LOC: ONC/OP 10:55
PROVIDERS: ATTEND Internal Medicine Hematology & Oncology
DX: N18.9 Chronic kidney disease, unspecified (principal); D63.1 Anemia in chronic kidney disease; D50.0 Iron deficiency anemia secondary to blood loss (chronic); D72.818 Other decreased white blood cell count; C22.1 Intrahepatic bile duct carcinoma; Z88.0 Allergy status to penicillin; Z88.1 Allergy status to other antibiotic agents; Z88.5 Allergy status to narcotic agent; Z88.7 Allergy status to serum and vaccine
CPT/HCPCS: 96372; Q5105

== ENCOUNTER 2019-12-20 11:15 | Day surgery (SDC) | payer MEDICARE, MEDICAID ==
[2019-12-20] MEDS ORDERED: Acetaminophen 500 MG TAB PO SCH (13:00)
[2019-12-20] MEDS ORDERED: diphenhydrAMINE 25 MG CAP PO SCH (13:00)
[2019-12-20 20:56] VITALS: BP 143/83; TEMP 97.8
[2019-12-20 21:33] LABS: #Eosinphils 0.2 thou/uL (0.0-0.7); #Lymphocytes 0.5 thou/uL (1.20-3.40); #Monocytes 0.7 thou/uL (0.11-0.59); %Basophils 0.8 % (0.0-1.0); %Eosinophils 3.7 % (0.0-10.0); %Lymphocytes 12.1 % (21.0-51.0); %Monocytes 14.9 % (0.0-10.0); %Neutrophils 68.5 % (42.0-75.0); Hemoglobin 9.8 g/dL (12.0-16.0); Mean Corpuscular HGB CONC 31.1 g/dL (32.0-36.0); Mean Corpuscular Hemoglobin 34.9 pg (27.0-31.0); Mean Platelet Volume 8.2 fL (7.4-10.4); Platelet Count 102 thou/uL (130-400); Platelet Morphology Comment Appears Decreased; RBC Distribution Width 18.2 % (11.5-14.5); Red Blood Cell (RBC) Count 2.81 mill/uL (4.20-5.40); White Blood Cell (WBC) Count 4.4 thou/uL (4.8-10.8)
== END 2019-12-20 20:59 | disposition home or self-care (01) ==
LOC: ONC/OP 11:15 → ONC 11:35 → ONC/OP 20:59
PROVIDERS: ATTEND Internal Medicine Hematology & Oncology
PROC: 30233N1 Transfusion of Nonautologous Red Blood Cells into Peripheral Vein, Percutaneous Approach (ICD-10-PCS; principal; 2019-12-20)
DX: D64.9 Anemia, unspecified (principal); D69.6 Thrombocytopenia, unspecified; Z88.0 Allergy status to penicillin; Z88.1 Allergy status to other antibiotic agents; Z88.5 Allergy status to narcotic agent; Z88.6 Allergy status to analgesic agent; Z88.7 Allergy status to serum and vaccine
CPT/HCPCS: 36415; 36430; 85025; 86850; 86900; 86901; 86922; P9016; Q0163

== ENCOUNTER 2019-12-26 11:54 | Day surgery (SDC) | payer MEDICARE, MEDICAID ==
[2019-12-26] MEDS ORDERED: EPOETIN ALFA-EPBX (ESRD) 40,000 UNIT/ML VIAL ONE (12:00)
[2019-12-26 12:03] VITALS: BP 118/56; TEMP 97.9
[2019-12-26] MEDS ORDERED: EPOETIN ALFA-EPBX (ESRD) 40,000 UNIT/ML VIAL SC SCH (12:15)
== END 2019-12-26 12:09 | disposition home or self-care (01) ==
LOC: ONC/OP 11:54
PROVIDERS: ATTEND Internal Medicine Hematology & Oncology
DX: N18.9 Chronic kidney disease, unspecified (principal); D63.1 Anemia in chronic kidney disease; D50.0 Iron deficiency anemia secondary to blood loss (chronic); D72.818 Other decreased white blood cell count; C22.1 Intrahepatic bile duct carcinoma; K74.69 Other cirrhosis of liver; Z88.0 Allergy status to penicillin; Z88.1 Allergy status to other antibiotic agents; Z88.5 Allergy status to narcotic agent; Z88.6 Allergy status to analgesic agent; Z88.7 Allergy status to serum and vaccine
CPT/HCPCS: 80053; 82248; 83615; 84100; 84550; 96372; Q5105

== ENCOUNTER 2019-12-28 09:28 | Inpatient (IN) | payer MEDICARE, MEDICAID ==
[2019-12-28] MEDS ORDERED: Racepinephrine 2.25% 0.5 ML NEB ONE (10:02)
[2019-12-28] MEDS ORDERED: Sodium Chloride For Inhalation 0.9% 3 ML NEB ONE (10:19)
[2019-12-28 10:34] LABS: #Eosinphils 0.5 thou/uL (0.0-0.7); #Lymphocytes 0.4 thou/uL (1.20-3.40); #Monocytes 0.6 thou/uL (0.11-0.59); #Neutrophils 4.2 thou/uL (1.40-6.50); %Basophils 0.6 % (0.0-1.0); %Eosinophils 8.8 % (0.0-10.0); %Lymphocytes 7.3 % (21.0-51.0); %Monocytes 9.7 % (0.0-10.0); %Neutrophils 73.7 % (42.0-75.0); Hemoglobin 9.4 g/dL (12.0-16.0); Mean Corpuscular HGB CONC 31.3 g/dL (32.0-36.0); Mean Corpuscular Hemoglobin 34.7 pg (27.0-31.0); Mean Platelet Volume 7.8 fL (7.4-10.4); Platelet Count 104 thou/uL (130-400); RBC Distribution Width 16.4 % (11.5-14.5); Red Blood Cell (RBC) Count 2.72 mill/uL (4.20-5.40); White Blood Cell (WBC) Count 5.7 thou/uL (4.8-10.8)
--- NOTE | 2019-12-28 10:40 | RAD ---
Exam: Chest one view HISTORY:Dyspnea. Cough and shortness of breath. Comparison: 10/31/2019, 11/20/2019 FINDINGS: The patient is rotated to the right. Cardiac silhouette:Cardiomegaly. Aorta: Atherosclerotic Pulmonary vessels: Normal Costophrenic angles: Right pleural effusion LUNGS: Redemonstration of multifocal interstitial and alveolar opacities. Pneumothorax: None Osseous abnormalities: None IMPRESSION: Redemonstration of multifocal interstitial and alveolar opacities. Congestive heart failu re. Superimposed pneumonia in the right lung base cannot be excluded.
[2019-12-28 10:47] LABS: Hypochromia SLIGHT = 6-15 cells (100X) (0-5/hpf); Macrocytosis SLIGHT = 6-15 cells (100X) (0-5/hpf); Platelet Morphology Comment Appears Decreased; Polychromasia SLIGHT = 2-3 cells (100X) (0-2/hpf)
[2019-12-28 10:49] LABS: MDiff Complete? YES
[2019-12-28 10:51] LABS: ALT (SGPT) 7 U/L (8-55); AST (SGOT) 15 U/L (5-34); Albumin 2.3 g/dL (3.4-4.8); Alkaline Phosphatase 48 U/L (40-110); Anion Gap 10 mmol/L (10-20); BUN (Urea Nitrogen) 33 mg/dL (9.8-20.1); Bilirubin, Total 0.7 mg/dL (0.2-1.2); Calc. Creatinine Clearance 0 mL/min (70-130); Calcium 8.2 mg/dL (7.8-10.44); Carbon Dioxide 22 mmol/L (23-31); Chloride 110 mmol/L (98-107); Estimated GFR-MDRD 32; Globulin 4.4 g/dL (2.4-3.5); Glucose 85 mg/dL (83-110); Potassium 5.1 mmol/L (3.5-5.1); Protein, Total 6.7 g/dL (6.0-8.3); Sodium 137 mmol/L (136-145)
[2019-12-28] MEDS ORDERED: Furosemide 40 MG/4 ML VIAL ONE (12:32)
[2019-12-28] MEDS ORDERED: Vancomycin 1 GM/200 ML BAG ONE (12:33)
[2019-12-28] MEDS ORDERED: Cefepime 2 GM VIAL ONE (12:33)
[2019-12-28 15:06] VITALS: BMI 32.3
[2019-12-28 15:19] LABS: Troponin I 0.027 ng/mL (< 0.028)
[2019-12-28 18:00] LABS: Troponin I 0.015 ng/mL (< 0.028)
[2019-12-28 18:48] LABS: SARS-CoV-2 MS2 Positive; SARS-CoV-2 N Gene Negative; SARS-CoV-2 S Gene Negative; SARS-CoV-2 by NAA Not Detected (NotDetected); SARS-CoV-2 orf1ab Negative
[2019-12-28] MEDS ORDERED: Furosemide 100 MG in Sodium Chloride 0.9% 90 ML IVPB SCH (20:15)
--- NOTE | 2019-12-28 22:06 | CON ---
DATE OF CONSULTATION: 12/28/2019 INDICATION FOR CONSULTATION: Unfortunate 79-year-old female who has chronic atrial fibrillation. HISTORY OF PRESENT ILLNESS: This is a very unfortunate 79-year-old female with multiple medical problems, which include stage I cholangiocarcinoma, history of tracheal stent placement, history of chronic atrial fibrillation, multiple allergies to medications, was recently in the hospital and had some type of allergic reaction to antibiotics and became very edematous. She also recently had a blood transfusion. The reason she was admitted today was due to dizziness. Fortunately, her EKG did show atrial fibrillation; however, the rate was 95 beats per minute and obviously did not have any significant tachycardia associated with the atrial fibrillation. She has some nonspecific EKG changes, but nothing that would indicate ischemia. Her enzymes are negative. She mainly just complains of the dizziness and denied any chest pain or shortness of breath. Apparently, she has been on oral anticoagulation at some point in time, but this was held due to problems with bleeding and there has been some discussion about a Watchman device. I am not certain whether or not this has actually been placed or not. I cannot determine this from the records whether or not she did have a Watchman device placed or not, but at this time she is only complaining of the dizziness and no other symptoms. PAST MEDICAL HISTORY: Significant for pancytopenia, chronic kidney disease, hepatitis C, COPD, type 2 diabetes, stage I cholangiocarcinoma. 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 She also has history of hypertension, irritable bowel syndrome. She has had a cholecystectomy and gastric surgery of and tubal ligation. She has also had a tracheal stent placements in [place]. These were performed in [place]. ALLERGIES: SHE IS ALLERGIC TO CIPRO, ASPIRIN, CLARITHROMYCIN, DOXYCYCLINE, KEFLEX, FLU VACCINE, MORPHINE, PENICILLIN, AND PNEUMONIA VACCINE. MEDICATIONS: Prior to admission included: 1. Dexilant. 2. Lasix. 3. Glipizide ER. 4. Losartan. 5. Potassium. 6. ProAir. 7. Compazine. 8. Zofran. 9. Xeloda. FAMILY HISTORY: Noncontributory. SOCIAL HISTORY: She is . No major alcohol or tobacco abuse. She lives with family members. REVIEW OF SYSTEMS: Difficult to obtain from the patient, but family members present. She mainly complains of the dizziness and the lower extremity edema, which is actually improved from what she was previously. PHYSICAL EXAMINATION: GENERAL: Reveals an elderly female, difficult to understand due to a raspy voice due to endotracheal stents. She has had frequent episodes of pneumonia. VITAL SIGNS: Blood pressure 135/71. She is afebrile. Heart rate is 95 and irregular, respiratory rate is 22, and O2 saturation 99% on 1 L. HEENT: Exam to be unremarkable. She does have upper airway noise due to the previous tracheal stents and an increased mucus. CHEST: Did not elicit any significant rales or rhonchi. It is difficult to auscultate due to the upper airway noise. CARDIOVASCULAR: Somewhat irregular, but no gross murmurs were noted at this time, but again difficult to auscultate due to a loud noise coming from the tracheal area. ABDOMEN: Soft. She has positive bowel sounds. EXTREMITIES: Show no clubbing or cyanosis at this time. She did have some mild erythema and evidence of previous significant edema with wrinkling now to skin. Pedal pulses are present. NEUROLOGIC: She appears to be relatively stable. I do not see any gross focal motor deficits. LABORATORY DATA: WBC of 5.7, hemoglobin 9.4, platelet count 104,000. Sodium is 137, potassium 5.1, BUN was 33 with a creatinine of 1.87, blood sugar was 85. Cardiac enzymes are negative. Her BNP was 193. IMPRESSION: 1. Dizziness of uncertain etiology. She said that this occurred after she had a blood transfusion, which she says occurs at each time she gets a blood transfusion, uncertain of the etiology of this. She does not appear to be significantly dizzy, but she did turn her head today for the examination. She became dizzy, just lying in the bed, but this resolved after just a few seconds. 2. Chronic atrial fibrillation. The rate is under relatively good control. We will continue her present medications. 3. History of gastrointestinal bleeding in the past, for which she is not able to take anticoagulation at this time. 4. History of cerebrovascular accidents in the past. 5. Chronic kidney disease. This appears to be relatively stable. 6. History of tracheal stents due to tracheomalacia. 7. History of diabetes. This is also relatively under good control at this time. At this time, I would continue her present medications. She does not appear to have tachycardia associated with the atrial fibrillation. Should she develop tachycardia, we can certainly start low-dose beta blockers. At this time, the home medication did include albuterol sulfate as well as potassium, she was getting 40 mEq b.i.d. Lasix was 80 mg tablet, she was taking 40 mg twice a day. Cozaar was 12.5 mg a day and Aldactone 25 mg daily. We will obtain echocardiogram on the patient to see if there is anything that has changed. Otherwise, she does have multiple medical problems. We will be more than happy to continue to follow the patient with you throughout her hospitalization. Job ID: [id number]
[2019-12-28] MEDS: Potassium Chloride 20 MEQ TAB PO SCH (22:24)
[2019-12-29] MEDS: Potassium Chloride 20 MEQ TAB PO SCH ×2 (09:09→22:21)
[2019-12-29] MEDS: Scopolamine 1.5 mg/72 hour Patch TOP SCH (09:09)
[2019-12-29] MEDS: Losartan 25 MG TAB PO SCH (09:09)
--- NOTE | 2019-12-29 09:50 | HP ---
CHIEF COMPLAINT ON ADMISSION: Dizziness with a feeling of near-syncope. HISTORY OF PRESENT ILLNESS: The patient is a 79-year-old female with history of carcinoma, receiving chemotherapy. She recently received a blood transfusion and states that calmly when she receives a transfusion she feels dizzy for a few days. Also, she states that she is used to sleeping on her right side since the year 2007 when she was forced to be and sleeping on her left side. She noticed her dizziness was a little worse as well. She has not passed out actually or fallen, but the emergency room physician thought she needed to be in the hospital, so she is here for further evaluation and her vital signs so far had been good. BNP on arrival was 193 and we will ask Cardiology to help assess her while she is here. PAST MEDICAL HISTORY: Recent hospitalization on November 30, 2019 for cellulitis and edema of the lower extremities. There was no cellulitis. There was renal insufficiency, chronic anemia, leukopenia, congestive heart failure, tracheomalacia, COPD, GI bleeds whenever she is anticoagulated, vitamin D deficiency, hypertension, GERD, abdominal hernia, esophageal strictures requiring dilatation, pancreatitis, colon polyps, peptic ulcer disease, and coronary artery disease. Most recent past medical history with discovery of stage I cholangiocarcinoma and history of hepatitis C. PAST SURGICAL HISTORY: Includes cholecystectomy, removal of colon polyps, tracheal stent placement, Billroth II gastric surgery, cardiac stents, section x3, tubal ligation, cyst removed from stomach twice, and tracheostomy back in 2007. PSYCHIATRIC HISTORY: Negative. SOCIAL HISTORY: Former smoker, quit 13 years ago with greater than 30 pack years. No alcohol or illicit drug use. Lives with her daughter. FAMILY HISTORY: Significant for diabetes and hypertension. ALLERGIES: MULTIPLE AND INCLUDE ASPIRIN, CIPROFLOXACIN, CLARITHROMYCIN, DOXYCYCLINE, FLU VACCINE, CEPHALEXIN, MORPHINE, PENICILLIN, AND PNEUMOCOCCAL VACCINE. MEDICATIONS ON ADMISSION: Include; 1. Albuterol neb treatments q.4h p.r.n. 2. Potassium 40 mEq b.i.d. 3. Furosemide 80 mg a day, i.e. 40 b.i.d. 4. Losartan 12.5 mg daily. 5. Spironolactone 25 mg daily. REVIEW OF SYSTEMS: CONSTITUTIONAL: Admits to general weakness and dizziness, stating that she nearly felt like she was going to pass out. HEENT: Denies drainage from eyes, ears, nose, or throat. CHEST: Chronic cough with trouble moving mucus from her chest chronically. CARDIOVASCULAR: Denies palpitations or chest pain. ABDOMEN: Denies nausea, vomiting, or diarrhea. : Denies blood in urine or stool or dysuria. MUSCULOSKELETAL: Complains of generalized weakness, but no acute lesions. SKIN: No new rashes or lesions. NEUROLOGIC: Cranial nerves are intact. No headaches, blurred vision, or trouble with mentation. PHYSICAL EXAMINATION: At the time of admission; VITAL SIGNS: Blood pressure 108/60, pulse is 91, respirations 20, and temperature 97.9 with an O2 saturation 98% on 2 L nasal cannula. Her weight is 156 pounds. GENERAL: Well-developed, well-nourished, -[place] female, alert, oriented, and cooperative. HEENT: Normocephalic and atraumatic. Pupils are equal, round, and reactive to light. Arcus senilis bilaterally. TMs, nares, and pharynx are clear. NECK: Supple. CHEST: With loud bronchial respirations, but otherwise clear. HEART: Regular rate and rhythm. BREASTS: Deferred. ABDOMEN: Soft, nontender without organomegaly. : Deferred. EXTREMITIES: Without clubbing, cyanosis, and down to 1+ edema in both lower extremities. SKIN: No acute rashes or lesions. NEUROLOGIC: Cranial nerves are intact. Gait and cerebral function are untested. Sensory exam is grossly intact. Mental status is clear and at baseline. LABORATORY DATA: Thus far shows WBCs 5.7, hemoglobin 9.4, hematocrit 30.1 with platelets down to 104. She is COVID negative. Sodium is 137, potassium 5.1, chloride 110, CO2 of 22, BUN 33, and creatinine 1.87 with a GFR of 32. Liver functions unremarkable. Troponin I is negative. BNP of 193. Chest x-ray shows mild evidence of CHF. ASSESSMENT: 1. Dizziness from various etiologies. 2. History of mild congestive heart failure. 3. History of stage I cholangiocarcinoma. 4. Chronic obstructive pulmonary disease. PLAN: Dr. Rosales has seen the patient in consultation. Requested an echocardiogram to see if there has been any significant changes. Other than that, we have begun mild diuresis to correct the elevated BNP. She has responded well and we will apply a Transderm-Scop patch to alleviate some of her dizziness and she is very open to this. She has no other specific complaints at this time. Time spent with the patient [id number] was 30 minutes and additional time in chart review came to total time of 55 minutes. Job ID: [id number]
[2019-12-29 13:36] LABS: Hemoglobin 9.5 g/dL (12.0-16.0); Mean Corpuscular HGB CONC 30.3 g/dL (32.0-36.0); Mean Corpuscular Hemoglobin 34.2 pg (27.0-31.0); Mean Platelet Volume 7.8 fL (7.4-10.4); Platelet Count 109 thou/uL (130-400); RBC Distribution Width 16.4 % (11.5-14.5); Red Blood Cell (RBC) Count 2.78 mill/uL (4.20-5.40); White Blood Cell (WBC) Count 5.6 thou/uL (4.8-10.8)
[2019-12-29 13:52] LABS: Anion Gap 14 mmol/L (10-20); BUN (Urea Nitrogen) 31 mg/dL (9.8-20.1); Calc. Creatinine Clearance 30 mL/min (70-130); Calcium 8.4 mg/dL (7.8-10.44); Carbon Dioxide 19 mmol/L (23-31); Chloride 109 mmol/L (98-107); Estimated GFR-MDRD 34; Glucose 102 mg/dL (83-110); Potassium 5.3 mmol/L (3.5-5.1); Sodium 137 mmol/L (136-145)
[2019-12-29 13:55] LABS: #Eosinphils 0.8 thou/uL (0.0-0.7); #Lymphocytes 0.6 thou/uL (1.20-3.40); #Monocytes 0.5 thou/uL (0.11-0.59); #Neutrophils 3.7 thou/uL (1.40-6.50); %Basophils 0.5 % (0.0-1.0); %Eosinophils 13.4 % (0.0-10.0); %Lymphocytes 10.1 % (21.0-51.0); %Monocytes 9.5 % (0.0-10.0); %Neutrophils 66.4 % (42.0-75.0); Anisocytosis SLIGHT = 6-15 cells (100X) (0-5/hpf); Hypochromia SLIGHT = 6-15 cells (100X) (0-5/hpf); MDiff Complete? YES; Macrocytosis SLIGHT = 6-15 cells (100X) (0-5/hpf); Platelet Morphology Comment Appears Decreased; Polychromasia SLIGHT = 2-3 cells (100X) (0-2/hpf)
[2019-12-30] MEDS ORDERED: diphenhydrAMINE 25 MG CAP PO SCH (02:00)
[2019-12-30 04:49] LABS: #Eosinphils 0.4 thou/uL (0.0-0.7); #Lymphocytes 0.6 thou/uL (1.20-3.40); #Monocytes 0.6 thou/uL (0.11-0.59); #Neutrophils 3.6 thou/uL (1.40-6.50); %Basophils 0.9 % (0.0-1.0); %Eosinophils 8.3 % (0.0-10.0); %Lymphocytes 10.6 % (21.0-51.0); %Monocytes 11.7 % (0.0-10.0); %Neutrophils 68.5 % (42.0-75.0); Hemoglobin 9.5 g/dL (12.0-16.0); Mean Corpuscular HGB CONC 33.1 g/dL (32.0-36.0); Mean Corpuscular Hemoglobin 37.5 pg (27.0-31.0); Mean Platelet Volume 7.9 fL (7.4-10.4); Platelet Count 94 thou/uL (130-400); RBC Distribution Width 16.4 % (11.5-14.5); Red Blood Cell (RBC) Count 2.52 mill/uL (4.20-5.40); White Blood Cell (WBC) Count 5.3 thou/uL (4.8-10.8)
[2019-12-30 04:57] LABS: Anion Gap 10 mmol/L (10-20); BUN (Urea Nitrogen) 29 mg/dL (9.8-20.1); Calc. Creatinine Clearance 30 mL/min (70-130); Calcium 8.3 mg/dL (7.8-10.44); Carbon Dioxide 24 mmol/L (23-31); Chloride 110 mmol/L (98-107); Estimated GFR-MDRD 35; Glucose 88 mg/dL (83-110); Potassium 5.9 mmol/L (3.5-5.1); Sodium 138 mmol/L (136-145)
[2019-12-30] MEDS: Potassium Chloride 20 MEQ TAB PO SCH (09:18)
[2019-12-30] MEDS: Losartan 25 MG TAB PO SCH (09:18)
[2019-12-30] MEDS ORDERED: Bisacodyl 10 MG SUPP PR SCH (12:45)
[2019-12-31] MEDS: Losartan 25 MG TAB PO SCH (08:55)
[2019-12-31] MEDS: Sodium Chloride 0.9% 1,000 ML IV SCH ×2 (15:21→19:30)
[2020-01-01] MEDS: Sodium Chloride 0.9% 1,000 ML IV SCH (09:19)
[2020-01-01] MEDS: Losartan 25 MG TAB PO SCH (09:30)
[2020-01-01] MEDS: Scopolamine 1.5 mg/72 hour Patch TOP SCH (09:30)
[2020-01-01 11:32] VITALS: BP 134/91; TEMP 98.3
--- NOTE | 2020-01-04 04:45 | PQF ---
Dear : Stewart Yoder Date 01/04/2020 Please exercise your independent, professional judgment in responding to the clarification form. Clinical indicators are provided on the bottom of this form for your review Can you please further clarify the diagnosis type and acuity of CHF? Please check appropriate box(es): HEART FAILURE: A. ACUITY [ ] Acute [ x ] Acute on Chronic [ ] Chronic B. TYPE: [ ] Systolic / HFrEF [ ] Diastolic / HFpEF [ ] Combined Systolic / Diastolic [ ] Other diagnosis, please specify [ x ] Unable to determine Physician Signature: Date/Time: For continuity of documentation, please document condition throughout progress notes and discharge summary. Thank You. To be completed by CDI/Coding staff for physician review: Present Clinical Indicators - Signs / Symptoms / Labs Results and Location in Medical Record [ x ] Congestive heart failure Chest X ray pg.1 [ x ] BNP: 193.4H Laboratory [ x ] Multiple complaints including difficulty of breathing, near syncope and dizziness ED Provider pg.1 [ x ] Suggestive of mild CHF exacerbation ED Provider pg.3 [ x ] Evidence of previous significant edema Consult pg.2 [ x ] Anasarca Scan PN 12/30 [ x ] EF: 60-65% Echocardiogram [ x ] Chest Xray: Cardiomegaly and right pleural effusion Chest Xray 12/27 Present Risk Factors Results and Location in Medical Record [ x ] AFIB ED Provider pg.1 [ x ] COPD ED Provider pg.1 [ x ] HTN ED Provider pg.1 [ x ] Former tobacco smoker ED Provider pg.2 [ x ] 79 years old H and P pg.1 [ x ] CKD Consult pg.1 [ x ] DM Consult 12/27 [ x ] CAD Consult 12/27 Present Treatments Results and Location in Medical Record [ x ] Cardiology Consult Dr. Rosales 12/27 [ x ] Chest Xray Chest Xray 12/27 [ x ] Echocardiogram Echocardiogram 12/29 [ x ] IV Lasix 40mg MAR [ x ] Losartan 25mg Oral MAR 12/30 CDS/Inspector Multifocal Lens Signature: Oren Mercer Phone #: ext [phone] Date 01/04/20 This is a permanent part of the Medical Record [facility]
== END 2020-01-01 14:30 | disposition home or self-care (01) | DRG 292 ==
LOC: ERS 09:28 → 2NO 14:10 → OBSVTOIN 14:10 → T4-B 12-30 16:36
PROVIDERS: ADMIT Specialist; ATTEND Specialist
DX: I13.0 Hypertensive heart and chronic kidney disease with heart failure and stage 1 through stage 4 chronic kidney disease, or unspecified chronic kidney disease (principal); I48.20 Chronic atrial fibrillation, unspecified; C24.0 Malignant neoplasm of extrahepatic bile duct; D61.818 Other pancytopenia; R42 Dizziness and giddiness; Z20.828 Contact with and (suspected) exposure to other viral communicable diseases; R55 Syncope and collapse; J44.9 Chronic obstructive pulmonary disease, unspecified; K21.9 Gastro-esophageal reflux disease without esophagitis; K58.9 Irritable bowel syndrome, unspecified; K59.00 Constipation, unspecified; F03.90 Unspecified dementia, unspecified severity, without behavioral disturbance, psychotic disturbance, mood disturbance, and anxiety; E11.22 Type 2 diabetes mellitus with diabetic chronic kidney disease; Z98.51 Tubal ligation status; Z90.49 Acquired absence of other specified parts of digestive tract; Z87.891 Personal history of nicotine dependence; Z88.0 Allergy status to penicillin; Z88.1 Allergy status to other antibiotic agents; Z88.5 Allergy status to narcotic agent; Z88.7 Allergy status to serum and vaccine; Z79.899 Other long term (current) drug therapy
CPT/HCPCS: 36415; 51798; 71045; 80048; 80053; 83880; 84484; 85025; 87635; 93005; 93306; 94640; 96365; 96375; 96376; G0378; J0692; J1940; J3370; J3490; J7620; Q0163; U0003

== ENCOUNTER 2020-01-23 11:12 | Day surgery (SDC) | payer MEDICARE, MEDICAID ==
[2020-01-23] MEDS ORDERED: EPOETIN ALFA-EPBX (ESRD) 40,000 UNIT/ML VIAL ONE (11:13)
[2020-01-23 11:32] VITALS: BP 137/67; TEMP 98.5
== END 2020-01-23 11:38 | disposition home or self-care (01) ==
LOC: ONC/OP 11:12
PROVIDERS: ATTEND Internal Medicine Hematology & Oncology
DX: N18.9 Chronic kidney disease, unspecified (principal); D63.1 Anemia in chronic kidney disease; D50.0 Iron deficiency anemia secondary to blood loss (chronic); C22.1 Intrahepatic bile duct carcinoma; K74.69 Other cirrhosis of liver; Z88.0 Allergy status to penicillin; Z88.1 Allergy status to other antibiotic agents; Z88.5 Allergy status to narcotic agent; Z88.6 Allergy status to analgesic agent; Z88.7 Allergy status to serum and vaccine; Z91.040 Latex allergy status
CPT/HCPCS: 96372; Q5105

== ENCOUNTER 2020-02-07 14:47 | Day surgery (SDC) | payer MEDICARE, MEDICAID ==
[2020-02-07] MEDS ORDERED: EPOETIN ALFA-EPBX (ESRD) 40,000 UNIT/ML VIAL ONE (14:56)
[2020-02-07 15:07] VITALS: BP 115/58; TEMP 98.1
[2020-02-07] MEDS ORDERED: EPOETIN ALFA-EPBX (ESRD) 40,000 UNIT/ML VIAL SC SCH (15:15)
== END 2020-02-07 15:08 | disposition home or self-care (01) ==
LOC: ONC/OP 14:47
PROVIDERS: ATTEND Internal Medicine Hematology & Oncology
DX: N18.9 Chronic kidney disease, unspecified (principal); D63.1 Anemia in chronic kidney disease; D50.0 Iron deficiency anemia secondary to blood loss (chronic); D72.818 Other decreased white blood cell count; K74.69 Other cirrhosis of liver; C22.1 Intrahepatic bile duct carcinoma; Z88.0 Allergy status to penicillin; Z88.1 Allergy status to other antibiotic agents; Z88.5 Allergy status to narcotic agent; Z88.7 Allergy status to serum and vaccine
CPT/HCPCS: 80053; 82248; 83615; 84100; 84550; 96372; Q5105

== ENCOUNTER 2020-04-08 08:58 | Inpatient (IN) | payer MEDICARE, MEDICAID, OTHER ==
[2020-04-08] MEDS ORDERED: Cefepime 2 GM VIAL ONE (09:36)
[2020-04-08] MEDS ORDERED: Dextrose 50% Abboject 50 ML SYRINGE ONE (09:39)
[2020-04-08 09:43] LABS: Bilirubin Negative (Negative); Blood, Urine Negative (Negative); Clarity Clear (Clear); Glucose, Urine (Dipstick) Normal (Negative); Ketone, Urine Negative (Negative); Leukocyte Negative Leu/uL (Negative); Nitrite Negative (Negative); Protein, Urine (Dipstick) Negative (Neg-Trace); Specific Gravity, Urine 1.012 (1.002-1.036); Urobilinogen Normal mg/dL (Less than 2)
[2020-04-08] MEDS ORDERED: Vancomycin 1.5 GRAM/300 ML BAG 1.5 GM in Premix Bag 1 BAG IVPB SCH (10:00)
[2020-04-08] MEDS ORDERED: Vancomycin 1 GM in Premix Bag 1 BAG IVPB SCH (10:00)
[2020-04-08 10:03] LABS: ALT (SGPT) 10 U/L (8-55); AST (SGOT) 27 U/L (5-34); Albumin 1.9 g/dL (3.4-4.8); Alkaline Phosphatase 26 U/L (40-110); Anion Gap 11 mmol/L (10-20); BUN (Urea Nitrogen) 50 mg/dL (9.8-20.1); Calc. Creatinine Clearance 0 mL/min (70-130); Calcium 8.1 mg/dL (7.8-10.44); Carbon Dioxide 18 mmol/L (23-31); Chloride 113 mmol/L (98-107); Lipase 29 U/L (8-78); Potassium 3.8 mmol/L (3.5-5.1); Protein, Total 6.9 g/dL (5.8-8.1); Sodium 138 mmol/L (136-145)
[2020-04-08 10:05] LABS: Band 55 % (5-11); Hemoglobin 7.3 g/dL (12.0-16.0); Lymphocytes 2 % (21-51); MDiff Complete? YES; Macrocytosis SLIGHT = 6-15 cells (100X) (0-5/hpf); Mean Corpuscular Hemoglobin 32.4 pg (27.0-31.0); Mean Platelet Volume 10.6 fL (7.4-10.4); Metamyelocyte 8 % (0-0); Monocytes 3 % (0-10); Myelocyte 1 % (0-0); Neutrophil 31 % (42-75); Platelet Count 43 thou/uL (130-400); Platelet Morphology Comment Appears Decreased; RBC Distribution Width 19.7 % (11.5-14.5); Red Blood Cell (RBC) Count 2.26 mill/uL (4.20-5.40); Reflex for Review?? YES; Toxic Granulation SLIGHT; White Blood Cell (WBC) Count 6.9 thou/uL (4.8-10.8)
[2020-04-08 10:16] LABS: Glucose 38 mg/dL (83-110)
[2020-04-08 10:23] LABS: Actual Bicarbonate (HCO3v) 17 mEq/L (22-28); Analyzer IN Cardio ER; Base Excess -7.1 mEq/L (-2.0 to +3.0); Calcium, Ionized (venous) 1.17 mmol/L (1.16-1.32); Chloride (VBG) 115 mmol/L (98-106); Hemoglobin (Hb) 8.4 g/dL (11.7-16.1); Potassium (VBG) 3.66 mmol/L (3.70-5.30); Sodium 137.4 mmol/L (133-146); pH (venous) 7.41 (7.32-7.43)
[2020-04-08 10:36] LABS: CKMB 5.1 ng/mL (0-6.6)
[2020-04-08 11:38] LABS: SARS-CoV-2 NAA Rapid Test Not Detected (NotDetected)
[2020-04-08] MEDS ORDERED: Norepinephrine 8 MG/0.9% NS 250 ML ONE (11:40)
[2020-04-08 12:01] LABS: Analyzer IN Cardio ER; Base Excess (BEa) -11.9 mEq/L (-2.0 to +3.0); Calcium, Ionized (arterial) 1.22 mmol/L (1.12-1.30); Hemoglobin (Hb) 7.9 g/dL (12.0-16.0); O2 Tension (PaO2), arterial 180.1 mmHg (> 70.0); Potassium - ABG Lab 3.46 mmol/L (3.70-5.30)
[2020-04-08 12:04] LABS: CO2 Tension 78.6 mmHg (35.0-45.0); Puncture Site RRA
[2020-04-08] MEDS ORDERED: Ketamine 50 MG/ML (10ML VIAL) ONE (12:10)
[2020-04-08] MEDS ORDERED: Rocuronium Bromide 10 MG/ML (10ML VIAL) ONE ×2 (12:10→12:11)
[2020-04-08] MEDS ORDERED: Fentanyl 20 mcg/ml (100 ml CADD) IV PRN (12:19)
[2020-04-08 13:18] LABS: Lactic Acid 2.1 mmol/L (0.5-2.2)
[2020-04-08 13:42] LABS: Actual Bicarbonate (HCO3v) 18 mEq/L (22-28); Analyzer IN Cardio ER; Chloride (VBG) 115 mmol/L (98-106); Hemoglobin (Hb) 7.4 g/dL (11.7-16.1); Potassium (VBG) 3.34 mmol/L (3.70-5.30); Sodium 138.5 mmol/L (133-146); pH (venous) 7.27 (7.32-7.43)
[2020-04-08] MEDS ORDERED: Morphine 2 MG/ML VIAL SLOW IVP PRN (14:30)
[2020-04-08] MEDS ORDERED: Fentanyl CADD 100 ML IV SCH (14:30)
[2020-04-08] MEDS ORDERED: Propofol BOLUS 1,000 MG/100 ML VIAL IV PRN (14:30)
[2020-04-08] MEDS ORDERED: Lorazepam 2 MG/ML VIAL SLOW IVP PRN (14:30)
[2020-04-08] MEDS ORDERED: Ventilator Sedation Protocol 1 EACH FS SCH (14:30)
[2020-04-08] MEDS ORDERED: DISCONTINUE PREVIOUS NARCOTIC PAIN MEDICATIONS AND BENZODIAZEPINES FS SCH (14:30)
[2020-04-08] MEDS ORDERED: Fentanyl BOLUS 250 ML IVPB PRN (14:30)
[2020-04-08 14:36] LABS: Actual Bicarbonate (HCO3a) 18.2 mEq/L (22-28); Base Excess (BEa) -7.5 mEq/L (-2.0 to +3.0); CO2 Tension 37.3 mmHg (35.0-45.0); Carboxyhemoglobin (COHb) 0.7 gm% (0.0-3.0); Hemoglobin (Hb) 7.7 g/dL (12.0-16.0); O2 Tension (PaO2), arterial 99.3 mmHg (> 70.0); Potassium - ABG Lab 3.37 mmol/L (3.70-5.30); pH, Arterial 7.31 (7.35-7.45)
[2020-04-08 14:40] LABS: ALV-art Gradient 67.975 mmHg (0-20); Puncture Site RRA
[2020-04-08] MEDS ORDERED: Sodium Bicarbonate 150 MEQ in Dextrose 5% in Water 1,000 ML IV SCH (14:45)
[2020-04-08 15:00] LABS: Fibrinogen 229 mg/dL (253-463)
[2020-04-08 15:01] LABS: INR-International Normal Ratio 2.2; PTT 38.9 sec (22.9-36.1); Prothrombin Time 24.8 sec (12.0-14.7)
[2020-04-08] MEDS: Ipratropium Bromide 2.5 ml Neb NEB SCH ×3 (15:06→22:39)
[2020-04-08] MEDS: Albuterol Sulfate 2.5 mg/3 ml Neb NEB SCH ×3 (15:06→22:39)
[2020-04-08 15:08] LABS: Mean Corpuscular HGB CONC 31.6 g/dL (32.0-36.0); Mean Corpuscular Hemoglobin 33.3 pg (27.0-31.0); Mean Platelet Volume 10.6 fL (7.4-10.4); Platelet Count 56 thou/uL (130-400); RBC Distribution Width 19.9 % (11.5-14.5); White Blood Cell (WBC) Count 8.1 thou/uL (4.8-10.8)
[2020-04-08 15:15] LABS: D-Dimer Test 9.98 *mcg/mL (0.27-0.43)
[2020-04-08 15:22] LABS: ALT (SGPT) 10 U/L (8-55); AST (SGOT) 21 U/L (5-34); Albumin 1.9 g/dL (3.4-4.8); Alkaline Phosphatase 25 U/L (40-110); Anion Gap 12 mmol/L (10-20); BUN (Urea Nitrogen) 48 mg/dL (9.8-20.1); Calc. Creatinine Clearance 0 mL/min (70-130); Calcium 7.8 mg/dL (7.8-10.44); Carbon Dioxide 16 mmol/L (23-31); Chloride 114 mmol/L (98-107); Globulin 4.6 g/dL (2.4-3.5); Glucose 70 mg/dL (83-110); Potassium 3.4 mmol/L (3.5-5.1); Protein, Total 6.5 g/dL (5.8-8.1); Sodium 139 mmol/L (136-145)
[2020-04-08 15:33] LABS: Anisocytosis SLIGHT = 6-15 cells (100X) (0-5/hpf); Band 78 % (5-11); Helmet Cells SLIGHT = 2-5 cells (100X) (0-1/hpf); Hypochromia SLIGHT = 6-15 cells (100X) (0-5/hpf); Lymphocytes 2 % (21-51); MDiff Complete? YES; Macrocytosis SLIGHT = 6-15 cells (100X) (0-5/hpf); Metamyelocyte 3 % (0-0); Monocytes 4 % (0-10); Neutrophil 13 % (42-75); Ovalocytes SLIGHT = 2-5 cells (100X) (0-1/hpf); Platelet Morphology Comment Appears Decreased; Polychromasia MODERATE = 3-4 cells (100X) (0-2/hpf); Reflex for Review?? NO; Schistocytes MODERATE= 6-15 cells (100X) (0-1/hpf); Target Cells SLIGHT = 2-5 cells (100X) (0-1/hpf); Tear Drops SLIGHT = 2-5 cells (100X) (0-1/hpf)
[2020-04-08 16:05] LABS: FSP-Qualitative ABNORMAL (Normal); FSP-Semiquantitative >=40 & <80 mcg/mL (Less than 5)
[2020-04-08 16:06] LABS: Platelet Count 56 thou/uL (130-400)
[2020-04-08 18:06] LABS: Lactic Acid 3.8 mmol/L (0.5-2.2)
[2020-04-08 18:16] LABS: Troponin I 0.062 ng/mL (< 0.028)
[2020-04-08] MEDS: methylPREDNISolone Sod Succ 40 MG VIAL IVP SCH (18:18)
[2020-04-08] MEDS: Famotidine/PF 20 mg/2ml Vial SLOW IVP SCH (20:58)
[2020-04-08] MEDS: MEROPENEM 1 GM/50 ML 1 GM in Premix Bag 1 BAG IVPB SCH (20:58)
[2020-04-08] MEDS: Norepinephrine 8 MG/0.9% NS 250 ML IVPB SCH (20:58)
[2020-04-09] MEDS: Albuterol Sulfate 2.5 mg/3 ml Neb NEB SCH ×6 (02:54→22:27)
[2020-04-09] MEDS: Ipratropium Bromide 2.5 ml Neb NEB SCH ×6 (02:56→22:28)
[2020-04-09] MEDS: MEROPENEM 1 GM/50 ML 1 GM in Premix Bag 1 BAG IVPB SCH ×3 (04:35→20:20)
[2020-04-09] MEDS: Propofol 1,000 MG/100 ML VIAL IV PRN ×2 (04:35→17:26)
[2020-04-09 04:41] LABS: ALT (SGPT) 8 U/L (8-55); AST (SGOT) 13 U/L (5-34); Albumin 1.6 g/dL (3.4-4.8); Alkaline Phosphatase 24 U/L (40-110); Anion Gap 10 mmol/L (10-20); BUN (Urea Nitrogen) 50 mg/dL (9.8-20.1); Bilirubin, Total 1.1 mg/dL (0.2-1.2); Calc. Creatinine Clearance 27 mL/min (70-130); Calcium 7.4 mg/dL (7.8-10.44); Carbon Dioxide 21 mmol/L (23-31); Chloride 112 mmol/L (98-107); Globulin 4.1 g/dL (2.4-3.5); Glucose 108 mg/dL (83-110); Potassium 3.2 mmol/L (3.5-5.1); Protein, Total 5.7 g/dL (5.8-8.1); Sodium 140 mmol/L (136-145)
[2020-04-09 05:46] LABS: Anisocytosis SLIGHT = 6-15 cells (100X) (0-5/hpf); Band 44 % (5-11); Helmet Cells SLIGHT = 2-5 cells (100X) (0-1/hpf); Hemoglobin 6.2 g/dL (12.0-16.0); MDiff Complete? YES; Mean Corpuscular HGB CONC 31.4 g/dL (32.0-36.0); Mean Corpuscular Hemoglobin 32.6 pg (27.0-31.0); Mean Platelet Volume 10.1 fL (7.4-10.4); Metamyelocyte 6 % (0-0); Monocytes 1 % (0-10); Myelocyte 2 % (0-0); Neutrophil 47 % (42-75); Ovalocytes SLIGHT = 2-5 cells (100X) (0-1/hpf); Platelet Count 50 thou/uL (130-400); Polychromasia SLIGHT = 2-3 cells (100X) (0-2/hpf); RBC Distribution Width 19.6 % (11.5-14.5); Red Blood Cell (RBC) Count 1.91 mill/uL (4.20-5.40); White Blood Cell (WBC) Count 8.7 thou/uL (4.8-10.8)
[2020-04-09] MEDS: Norepinephrine 8 MG/0.9% NS 250 ML IVPB SCH ×2 (06:10→17:27)
[2020-04-09] MEDS: methylPREDNISolone Sod Succ 40 MG VIAL IVP SCH ×5 (06:10→23:30)
[2020-04-09 07:17] LABS: Actual Bicarbonate (HCO3a) 19.6 mEq/L (22-28); Base Excess (BEa) -5.6 mEq/L (-2.0 to +3.0); CO2 Tension 37.1 mmHg (35.0-45.0); Calcium, Ionized (arterial) 1.15 mmol/L (1.12-1.30); Carboxyhemoglobin (COHb) 0.8 gm% (0.0-3.0); Hemoglobin (Hb) 7.1 g/dL (12.0-16.0); Potassium - ABG Lab 3.19 mmol/L (3.70-5.30); pH, Arterial 7.34 (7.35-7.45)
[2020-04-09 08:35] LABS: Puncture Site RRA
[2020-04-09 08:36] LABS: ALV-art Gradient 338.025 mmHg (0-20)
[2020-04-09] MEDS ORDERED: Sodium Chloride 0.9% 1,000 ML IV SCH (08:45)
[2020-04-09] MEDS ORDERED: Sodium Chloride 0.9% 500 ML IV SCH (08:45)
[2020-04-09] MEDS ORDERED: Electrolyte Replacement Protocol 1 EACH FS ONE (08:45)
[2020-04-09] MEDS ORDERED: Famotidine/PF 20 mg/2ml Vial SLOW IVP SCH (09:00)
[2020-04-09] MEDS ORDERED: Enoxaparin Sodium 30 MG/0.3 ML SYRINGE SC SCH (09:00)
[2020-04-09] MEDS ORDERED: Electrolyte Replacement Protocol FS PRN (09:15)
[2020-04-09] MEDS: Famotidine/PF 20 mg/2ml Vial SLOW IVP SCH (09:25)
[2020-04-09] MEDS ORDERED: Potassium Chloride 40 MEQ in Premix Bag 1 BAG IVPB SCH (09:30)
[2020-04-09 17:30] LABS: Potassium 3.8 mmol/L (3.5-5.1)
[2020-04-09] MEDS: NS 0.9% w/ 20 MEQ KCL 1,000 ML IV SCH (20:21)
[2020-04-09 20:39] LABS: Glucose 92 mg/dL (83-110)
[2020-04-10] MEDS: Albuterol Sulfate 2.5 mg/3 ml Neb NEB SCH ×6 (02:18→22:23)
[2020-04-10] MEDS: Ipratropium Bromide 2.5 ml Neb NEB SCH ×6 (02:18→22:28)
[2020-04-10] MEDS: MEROPENEM 1 GM/50 ML 1 GM in Premix Bag 1 BAG IVPB SCH ×3 (03:42→19:39)
[2020-04-10] MEDS: Norepinephrine 8 MG/0.9% NS 250 ML IVPB SCH ×2 (03:45→09:51)
[2020-04-10] MEDS: Propofol 1,000 MG/100 ML VIAL IV PRN (03:46)
[2020-04-10] MEDS: NS 0.9% w/ 20 MEQ KCL 1,000 ML IV SCH (03:46)
[2020-04-10 04:34] LABS: ALT (SGPT) 7 U/L (8-55); AST (SGOT) 10 U/L (5-34); Albumin 1.6 g/dL (3.4-4.8); Alkaline Phosphatase 26 U/L (40-110); Anion Gap 13 mmol/L (10-20); BUN (Urea Nitrogen) 53 mg/dL (9.8-20.1); Bilirubin, Total 2.1 mg/dL (0.2-1.2); Calc. Creatinine Clearance 25 mL/min (70-130); Calcium 7.5 mg/dL (7.8-10.44); Carbon Dioxide 17 mmol/L (23-31); Chloride 114 mmol/L (98-107); Globulin 4.1 g/dL (2.4-3.5); Glucose 111 mg/dL (83-110); Potassium 4.1 mmol/L (3.5-5.1); Protein, Total 5.7 g/dL (5.8-8.1); Sodium 140 mmol/L (136-145)
[2020-04-10 04:42] LABS: Anisocytosis SLIGHT = 6-15 cells (100X) (0-5/hpf); Band 38 % (5-11); Burr Cells SLIGHT = 2-5 cells (100X) (0-1/hpf); Hemoglobin 8.5 g/dL (12.0-16.0); Lymphocytes 3 % (21-51); MDiff Complete? YES; Macrocytosis SLIGHT = 6-15 cells (100X) (0-5/hpf); Mean Corpuscular HGB CONC 30.8 g/dL (32.0-36.0); Mean Corpuscular Hemoglobin 30.5 pg (27.0-31.0); Monocytes 3 % (0-10); Neutrophil 56 % (42-75); Nucleated RBC 1 % (0); Platelet Count 36 thou/uL (130-400); Platelet Morphology Comment Appears Decreased; White Blood Cell (WBC) Count 7.5 thou/uL (4.8-10.8)
[2020-04-10] MEDS: methylPREDNISolone Sod Succ 40 MG VIAL IVP SCH ×3 (06:05→17:00)
[2020-04-10] MEDS: Famotidine/PF 20 mg/2ml Vial SLOW IVP SCH (07:33)
[2020-04-10 07:36] LABS: Actual Bicarbonate (HCO3a) 16.8 mEq/L (22-28); Base Excess (BEa) -9.9 mEq/L (-2.0 to +3.0); CO2 Tension 40.5 mmHg (35.0-45.0); Calcium, Ionized (arterial) 1.15 mmol/L (1.12-1.30); Carboxyhemoglobin (COHb) 0.3 gm% (0.0-3.0); Hemoglobin (Hb) 9.2 g/dL (12.0-16.0); O2 Tension (PaO2), arterial 64.5 mmHg (> 70.0)
[2020-04-10 07:38] LABS: Puncture Site RRA; pH, Arterial 7.24 (7.35-7.45)
[2020-04-10 07:39] LABS: ALV-art Gradient 170.075 mmHg (0-20)
[2020-04-10] MEDS ORDERED: Furosemide 40 MG/4 ML VIAL SLOW IVP SCH (08:15)
[2020-04-10] MEDS: Albumin 25% 25 GM/100 ML BOT IVPB SCH ×2 (10:53→17:00)
[2020-04-10] MEDS: Sodium Bicarbonate 70 MEQ in Sodium Chloride 0.45% 1,000 ML IV SCH ×2 (10:55→17:01)
[2020-04-11] MEDS: Sodium Bicarbonate 70 MEQ in Sodium Chloride 0.45% 1,000 ML IV SCH ×3 (01:00→08:03)
[2020-04-11] MEDS: methylPREDNISolone Sod Succ 40 MG VIAL IVP SCH ×4 (01:00→17:07)
[2020-04-11] MEDS: Albumin 25% 25 GM/100 ML BOT IVPB SCH ×2 (01:00→05:13)
[2020-04-11] MEDS: Albuterol Sulfate 2.5 mg/3 ml Neb NEB SCH ×6 (02:39→21:29)
[2020-04-11] MEDS: Ipratropium Bromide 2.5 ml Neb NEB SCH ×6 (02:40→21:29)
[2020-04-11 04:46] LABS: ALT (SGPT) Less than 7 U/L (8-55); AST (SGOT) 11 U/L (5-34); Albumin 2.6 g/dL (3.4-4.8); Alkaline Phosphatase 32 U/L (40-110); Anion Gap 18 mmol/L (10-20); BUN (Urea Nitrogen) 62 mg/dL (9.8-20.1); Bilirubin, Total 2.2 mg/dL (0.2-1.2); Calc. Creatinine Clearance 24 mL/min (70-130); Carbon Dioxide 16 mmol/L (23-31); Chloride 111 mmol/L (98-107); Globulin 3.4 g/dL (2.4-3.5); Glucose 191 mg/dL (83-110); Potassium 3.6 mmol/L (3.5-5.1); Sodium 141 mmol/L (136-145)
[2020-04-11] MEDS: Norepinephrine 8 MG/0.9% NS 250 ML IVPB SCH (04:48)
[2020-04-11] MEDS: MEROPENEM 1 GM/50 ML 1 GM in Premix Bag 1 BAG IVPB SCH ×2 (04:50→15:06)
[2020-04-11 05:16] LABS: Anisocytosis MODERATE=16-30 cells (100X) (0-5/hpf); Band 33 % (5-11); Hemoglobin 7.4 g/dL (12.0-16.0); Lymphocytes 3 % (21-51); MDiff Complete? YES; Mean Corpuscular HGB CONC 29.2 g/dL (32.0-36.0); Mean Corpuscular Hemoglobin 29.6 pg (27.0-31.0); Mean Platelet Volume 14.5 fL (7.4-10.4); Monocytes 1 % (0-10); Neutrophil 63 % (42-75); Platelet Count 21 thou/uL (130-400); Platelet Morphology Comment Appears Decreased; White Blood Cell (WBC) Count 7.4 thou/uL (4.8-10.8)
[2020-04-11] MEDS: Famotidine/PF 20 mg/2ml Vial SLOW IVP SCH (07:25)
[2020-04-11 07:34] LABS: Base Excess (BEa) -6.7 mEq/L (-2.0 to +3.0); CO2 Tension 32.9 mmHg (35.0-45.0); Calcium, Ionized (arterial) 1.13 mmol/L (1.12-1.30); Carboxyhemoglobin (COHb) 0.9 gm% (0.0-3.0); O2 Tension (PaO2), arterial 64.9 mmHg (> 70.0); Potassium - ABG Lab 3.53 mmol/L (3.70-5.30); pH, Arterial 7.36 (7.35-7.45)
[2020-04-11 07:37] LABS: ALV-art Gradient 179.175 mmHg (0-20); Puncture Site RRA
[2020-04-11] MEDS ORDERED: Sodium Bicarbonate 70 MEQ in Sodium Chloride 0.45% 1,000 ML IV SCH (07:45)
[2020-04-11] MEDS ORDERED: Furosemide 40 MG/4 ML VIAL SLOW IVP SCH (07:45)
[2020-04-11] MEDS: Fluconazole In NaCl,Iso-Osm 100 MG in Admixture Fee 2 EACH IVPB SCH (08:47)
[2020-04-11] MEDS ORDERED: Fluconazole In NaCl,Iso-Osm 100 MG in Premix Bag 1 BAG IVPB SCH (09:00)
[2020-04-12] MEDS: methylPREDNISolone Sod Succ 40 MG VIAL IVP SCH ×5 (00:05→23:32)
[2020-04-12] MEDS: Sodium Bicarbonate 70 MEQ in Sodium Chloride 0.45% 1,000 ML IV SCH ×2 (01:20→17:37)
[2020-04-12] MEDS: Albuterol Sulfate 2.5 mg/3 ml Neb NEB SCH ×6 (02:10→22:20)
[2020-04-12] MEDS: Ipratropium Bromide 2.5 ml Neb NEB SCH ×6 (02:10→22:20)
[2020-04-12] MEDS: MEROPENEM 1 GM/50 ML 1 GM in Premix Bag 1 BAG IVPB SCH ×2 (04:22→16:42)
[2020-04-12 04:26] LABS: Anisocytosis SLIGHT = 6-15 cells (100X) (0-5/hpf); Band 33 % (5-11); Hemoglobin 7.6 g/dL (12.0-16.0); Lymphocytes 2 % (21-51); MDiff Complete? YES; Macrocytosis SLIGHT = 6-15 cells (100X) (0-5/hpf); Mean Corpuscular HGB CONC 29.6 g/dL (32.0-36.0); Mean Corpuscular Hemoglobin 29.2 pg (27.0-31.0); Mean Corpuscular Volume 98.9 fL (78.0-98.0); Mean Platelet Volume 11.2 fL (7.4-10.4); Monocytes 1 % (0-10); Neutrophil 64 % (42-75); Nucleated RBC 2 % (0); Platelet Count 41 thou/uL (130-400); Platelet Morphology Comment Appears Decreased; RBC Distribution Width 19.8 % (11.5-14.5); Red Blood Cell (RBC) Count 2.58 mill/uL (4.20-5.40); Schistocytes SLIGHT = 2-5 cells (100X) (0-1/hpf); Target Cells SLIGHT = 2-5 cells (100X) (0-1/hpf); White Blood Cell (WBC) Count 11.2 thou/uL (4.8-10.8)
[2020-04-12 04:27] LABS: ALT (SGPT) Less than 7 U/L (8-55); AST (SGOT) 20 U/L (5-34); Albumin 2.6 g/dL (3.4-4.8); Alkaline Phosphatase 30 U/L (40-110); Anion Gap 15 mmol/L (10-20); BUN (Urea Nitrogen) 71 mg/dL (9.8-20.1); Bilirubin, Total 2.4 mg/dL (0.2-1.2); Calc. Creatinine Clearance 24 mL/min (70-130); Calcium 8.2 mg/dL (7.8-10.44); Carbon Dioxide 20 mmol/L (23-31); Chloride 111 mmol/L (98-107); Globulin 3.4 g/dL (2.4-3.5); Glucose 187 mg/dL (83-110); Potassium 3.6 mmol/L (3.5-5.1); Sodium 142 mmol/L (136-145)
[2020-04-12 07:28] LABS: Actual Bicarbonate (HCO3a) 20.4 mEq/L (22-28); Base Excess (BEa) -4.3 mEq/L (-2.0 to +3.0); CO2 Tension 35.5 mmHg (35.0-45.0); Calcium, Ionized (arterial) 1.17 mmol/L (1.12-1.30); Carboxyhemoglobin (COHb) 0.9 gm% (0.0-3.0); Hemoglobin (Hb) 8.2 g/dL (12.0-16.0); O2 Tension (PaO2), arterial 68.2 mmHg (> 70.0); Potassium - ABG Lab 3.51 mmol/L (3.70-5.30); pH, Arterial 7.38 (7.35-7.45)
[2020-04-12] MEDS: Famotidine/PF 20 mg/2ml Vial SLOW IVP SCH (08:35)
[2020-04-12] MEDS: Fluconazole In NaCl,Iso-Osm 100 MG in Admixture Fee 2 EACH IVPB SCH (08:35)
[2020-04-12] MEDS: Norepinephrine 8 MG/0.9% NS 250 ML IVPB SCH (08:37)
[2020-04-12 16:25] LABS: Puncture Site LRA
[2020-04-12 16:26] LABS: ALV-art Gradient 243.925 mmHg (0-20)
[2020-04-13] MEDS: methylPREDNISolone Sod Succ 40 MG VIAL IVP SCH ×4 (00:14→17:58)
[2020-04-13] MEDS: Ipratropium Bromide 2.5 ml Neb NEB SCH ×6 (02:27→22:08)
[2020-04-13] MEDS: Albuterol Sulfate 2.5 mg/3 ml Neb NEB SCH ×6 (02:27→22:08)
[2020-04-13] MEDS: MEROPENEM 1 GM/50 ML 1 GM in Premix Bag 1 BAG IVPB SCH ×2 (04:30→16:38)
[2020-04-13 05:29] LABS: Hemoglobin 8.3 g/dL (12.0-16.0); Mean Corpuscular HGB CONC 31.9 g/dL (32.0-36.0); Mean Corpuscular Hemoglobin 30.9 pg (27.0-31.0); Mean Corpuscular Volume 96.8 fL (78.0-98.0); Mean Platelet Volume 13.4 fL (7.4-10.4); Platelet Count 33 thou/uL (130-400); RBC Distribution Width 19.7 % (11.5-14.5); Red Blood Cell (RBC) Count 2.67 mill/uL (4.20-5.40); White Blood Cell (WBC) Count 10.4 thou/uL (4.8-10.8)
[2020-04-13 05:31] LABS: Band 37 % (5-11); Burr Cells MODERATE= 6-15 cells (100X) (0-1/hpf); MDiff Complete? YES; Neutrophil 63 % (42-75); Ovalocytes SLIGHT = 2-5 cells (100X) (0-1/hpf); Platelet Morphology Comment Appears Decreased; Target Cells MODERATE= 6-15 cells (100X) (0-1/hpf)
[2020-04-13 05:46] LABS: ALT (SGPT) Less than 7 U/L (8-55); AST (SGOT) 20 U/L (5-34); Albumin 2.4 g/dL (3.4-4.8); Alkaline Phosphatase 38 U/L (40-110); Anion Gap 16 mmol/L (10-20); BUN (Urea Nitrogen) 87 mg/dL (9.8-20.1); Bilirubin, Total 2.7 mg/dL (0.2-1.2); Calc. Creatinine Clearance 23 mL/min (70-130); Calcium 8.7 mg/dL (7.8-10.44); Carbon Dioxide 20 mmol/L (23-31); Chloride 108 mmol/L (98-107); Globulin 3.6 g/dL (2.4-3.5); Glucose 196 mg/dL (83-110); Potassium 3.7 mmol/L (3.5-5.1); Sodium 140 mmol/L (136-145)
[2020-04-13] MEDS: Sodium Bicarbonate 70 MEQ in Sodium Chloride 0.45% 1,000 ML IV SCH ×2 (06:17→09:35)
[2020-04-13 07:13] LABS: Actual Bicarbonate (HCO3a) 20.6 mEq/L (22-28); Base Excess (BEa) -3.5 mEq/L (-2.0 to +3.0); CO2 Tension 33.6 mmHg (35.0-45.0); Calcium, Ionized (arterial) 1.23 mmol/L (1.12-1.30); Carboxyhemoglobin (COHb) 0.1 gm% (0.0-3.0); Hemoglobin (Hb) 10.2 g/dL (12.0-16.0); O2 Tension (PaO2), arterial 63.1 mmHg (> 70.0); Potassium - ABG Lab 3.68 mmol/L (3.70-5.30); pH, Arterial 7.41 (7.35-7.45)
[2020-04-13 07:14] LABS: Puncture Site RRA
[2020-04-13] MEDS: Albumin 25% 25 GM/100 ML BOT IVPB SCH ×3 (09:18→20:51)
[2020-04-13] MEDS: Famotidine/PF 20 mg/2ml Vial SLOW IVP SCH (09:19)
[2020-04-13] MEDS: Fluconazole In NaCl,Iso-Osm 100 MG in Admixture Fee 2 EACH IVPB SCH (10:03)
[2020-04-14] MEDS: Albumin 25% 25 GM/100 ML BOT IVPB SCH ×2 (02:30→08:20)
[2020-04-14] MEDS: Albuterol Sulfate 2.5 mg/3 ml Neb NEB SCH ×2 (02:56→07:26)
[2020-04-14] MEDS: Ipratropium Bromide 2.5 ml Neb NEB SCH ×2 (02:56→07:26)
[2020-04-14] MEDS: MEROPENEM 1 GM/50 ML 1 GM in Premix Bag 1 BAG IVPB SCH ×2 (03:41→15:36)
[2020-04-14 05:30] LABS: Hemoglobin 7.5 g/dL (12.0-16.0); Mean Corpuscular HGB CONC 31.6 g/dL (32.0-36.0); Mean Corpuscular Hemoglobin 30.6 pg (27.0-31.0); Mean Corpuscular Volume 96.8 fL (78.0-98.0); Mean Platelet Volume 13.8 fL (7.4-10.4); Platelet Count 20 thou/uL (130-400); RBC Distribution Width 19.8 % (11.5-14.5); Red Blood Cell (RBC) Count 2.44 mill/uL (4.20-5.40); White Blood Cell (WBC) Count 7.9 thou/uL (4.8-10.8)
[2020-04-14] MEDS: methylPREDNISolone Sod Succ 40 MG VIAL IVP SCH ×4 (05:34→23:34)
[2020-04-14 05:39] LABS: ALT (SGPT) Less than 7 U/L (8-55); AST (SGOT) 21 U/L (5-34); Albumin 3.5 g/dL (3.4-4.8); Alkaline Phosphatase 33 U/L (40-110); Anion Gap 19 mmol/L (10-20); BUN (Urea Nitrogen) 94 mg/dL (9.8-20.1); Bilirubin, Total 3.4 mg/dL (0.2-1.2); Calc. Creatinine Clearance 24 mL/min (70-130); Calcium 9.7 mg/dL (7.8-10.44); Carbon Dioxide 19 mmol/L (23-31); Chloride 106 mmol/L (98-107); Globulin 3.1 g/dL (2.4-3.5); Glucose 195 mg/dL (83-110); Potassium 3.7 mmol/L (3.5-5.1); Protein, Total 6.6 g/dL (5.8-8.1); Sodium 140 mmol/L (136-145)
[2020-04-14 05:47] LABS: Lymphocytes 5 % (21-51); MDiff Complete? YES; Metamyelocyte 1 % (0-0); Monocytes 4 % (0-10); Neutrophil 90 % (42-75); Platelet Morphology Comment Appears Decreased
[2020-04-14] MEDS: Famotidine/PF 20 mg/2ml Vial SLOW IVP SCH (08:13)
[2020-04-14] MEDS: Fluconazole In NaCl,Iso-Osm 100 MG in Admixture Fee 2 EACH IVPB SCH (09:27)
[2020-04-14] MEDS: Sodium Bicarbonate 70 MEQ in Sodium Chloride 0.45% 1,000 ML IV SCH (14:57)
[2020-04-15] MEDS: MEROPENEM 1 GM/50 ML 1 GM in Premix Bag 1 BAG IVPB SCH ×2 (04:14→16:11)
[2020-04-15 05:11] LABS: ALT (SGPT) Less than 7 U/L (8-55); AST (SGOT) 25 U/L (5-34); Albumin 3.3 g/dL (3.4-4.8); Alkaline Phosphatase 31 U/L (40-110); Anion Gap 19 mmol/L (10-20); BUN (Urea Nitrogen) 103 mg/dL (9.8-20.1); Bilirubin, Total 4.5 mg/dL (0.2-1.2); Calc. Creatinine Clearance 22 mL/min (70-130); Calcium 9.9 mg/dL (7.8-10.44); Carbon Dioxide 20 mmol/L (23-31); Chloride 105 mmol/L (98-107); Globulin 2.8 g/dL (2.4-3.5); Glucose 174 mg/dL (83-110); Potassium 4.1 mmol/L (3.5-5.1); Protein, Total 6.1 g/dL (5.8-8.1); Sodium 140 mmol/L (136-145)
[2020-04-15 05:12] LABS: Hemoglobin 6.8 g/dL (12.0-16.0); Mean Corpuscular HGB CONC 32.1 g/dL (32.0-36.0); Mean Corpuscular Hemoglobin 31.1 pg (27.0-31.0); Mean Corpuscular Volume 96.9 fL (78.0-98.0); Platelet Count 14 thou/uL (130-400); RBC Distribution Width 19.6 % (11.5-14.5); White Blood Cell (WBC) Count 10.4 thou/uL (4.8-10.8)
[2020-04-15 05:17] LABS: Lymphocytes 3 % (21-51); MDiff Complete? YES; Metamyelocyte 1 % (0-0); Monocytes 2 % (0-10); Myelocyte 1 % (0-0); Neutrophil 93 % (42-75); Nucleated RBC 1 % (0); Platelet Morphology Comment Appears Adequate
[2020-04-15] MEDS: Sodium Bicarbonate 70 MEQ in Sodium Chloride 0.45% 1,000 ML IV SCH ×2 (05:50→20:47)
[2020-04-15] MEDS: Norepinephrine 8 MG/0.9% NS 250 ML IVPB SCH (06:30)
[2020-04-15] MEDS: methylPREDNISolone Sod Succ 40 MG VIAL IVP SCH ×3 (06:39→18:12)
[2020-04-15] MEDS: Famotidine/PF 20 mg/2ml Vial SLOW IVP SCH (09:23)
[2020-04-15] MEDS: Fluconazole In NaCl,Iso-Osm 100 MG in Admixture Fee 2 EACH IVPB SCH (09:47)
[2020-04-16] MEDS: methylPREDNISolone Sod Succ 40 MG VIAL IVP SCH ×4 (00:41→19:24)
[2020-04-16] MEDS: MEROPENEM 1 GM/50 ML 1 GM in Premix Bag 1 BAG IVPB SCH (03:17)
[2020-04-16 04:28] LABS: Hemoglobin 7.4 g/dL (12.0-16.0); Mean Corpuscular HGB CONC 32.3 g/dL (32.0-36.0); Mean Corpuscular Volume 95.8 fL (78.0-98.0); Mean Platelet Volume 16.1 fL (7.4-10.4); Platelet Count 21 thou/uL (130-400); RBC Distribution Width 19.6 % (11.5-14.5); Red Blood Cell (RBC) Count 2.38 mill/uL (4.20-5.40); White Blood Cell (WBC) Count 13.7 thou/uL (4.8-10.8)
[2020-04-16 04:37] LABS: MDiff Complete? YES
[2020-04-16 04:38] LABS: Band 12 % (5-11); Elliptocytes SLIGHT = 2-5 cells (100X) (0-1/hpf); Hypochromia SLIGHT = 6-15 cells (100X) (0-5/hpf); Monocytes 13 % (0-10); Neutrophil 75 % (42-75); Platelet Morphology Comment Appears Decreased; Polychromasia SLIGHT = 2-3 cells (100X) (0-2/hpf); Target Cells SLIGHT = 2-5 cells (100X) (0-1/hpf)
[2020-04-16 04:46] LABS: ALT (SGPT) Less than 7 U/L (8-55); AST (SGOT) 26 U/L (5-34); Albumin 3.1 g/dL (3.4-4.8); Alkaline Phosphatase 37 U/L (40-110); Anion Gap 21 mmol/L (10-20); BUN (Urea Nitrogen) 121 mg/dL (9.8-20.1); Bilirubin, Total 6.3 mg/dL (0.2-1.2); Calc. Creatinine Clearance 23 mL/min (70-130); Calcium 9.5 mg/dL (7.8-10.44); Carbon Dioxide 19 mmol/L (23-31); Chloride 105 mmol/L (98-107); Globulin 3.2 g/dL (2.4-3.5); Glucose 188 mg/dL (83-110); Potassium 4.6 mmol/L (3.5-5.1); Protein, Total 6.3 g/dL (5.8-8.1); Sodium 140 mmol/L (136-145)
[2020-04-16 07:11] LABS: Actual Bicarbonate (HCO3a) 19.5 mEq/L (22-28); Base Excess (BEa) -5.6 mEq/L (-2.0 to +3.0); CO2 Tension 36.7 mmHg (35.0-45.0); Calcium, Ionized (arterial) 1.21 mmol/L (1.12-1.30); Carboxyhemoglobin (COHb) 0.1 gm% (0.0-3.0); O2 Tension (PaO2), arterial 64.7 mmHg (> 70.0); Potassium - ABG Lab 4.54 mmol/L (3.70-5.30); pH, Arterial 7.34 (7.35-7.45)
[2020-04-16 07:14] LABS: Puncture Site RRA
[2020-04-16 07:15] LABS: ALV-art Gradient 317.225 mmHg (0-20)
[2020-04-16 08:32] LABS: Anisocytosis MODERATE=16-30 cells (100X) (0-5/hpf); Band 16 % (5-11); Elliptocytes SLIGHT = 2-5 cells (100X) (0-1/hpf); Hemoglobin 7.3 g/dL (12.0-16.0); Lymphocytes 1 % (21-51); MDiff Complete? YES; Mean Corpuscular HGB CONC 32.1 g/dL (32.0-36.0); Mean Corpuscular Hemoglobin 30.8 pg (27.0-31.0); Mean Corpuscular Volume 96.1 fL (78.0-98.0); Monocytes 1 % (0-10); Neutrophil 82 % (42-75); Nucleated RBC 1 % (0); Platelet Count 19 thou/uL (130-400); Platelet Morphology Comment Appears Decreased; RBC Distribution Width 19.4 % (11.5-14.5); Red Blood Cell (RBC) Count 2.38 mill/uL (4.20-5.40); Target Cells SLIGHT = 2-5 cells (100X) (0-1/hpf); White Blood Cell (WBC) Count 13.4 thou/uL (4.8-10.8)
[2020-04-16] MEDS: Fluconazole In NaCl,Iso-Osm 100 MG in Admixture Fee 2 EACH IVPB SCH (10:38)
[2020-04-16] MEDS: Famotidine/PF 20 mg/2ml Vial SLOW IVP SCH (10:38)
[2020-04-16] MEDS ORDERED: Morphine 2 MG/ML VIAL SLOW IVP PRN (13:55)
[2020-04-17] MEDS: methylPREDNISolone Sod Succ 40 MG VIAL IVP SCH ×5 (00:18→23:50)
[2020-04-17 04:34] LABS: Hemoglobin 7.4 g/dL (12.0-16.0); Mean Corpuscular HGB CONC 32.4 g/dL (32.0-36.0); Mean Corpuscular Hemoglobin 30.9 pg (27.0-31.0); Mean Corpuscular Volume 95.3 fL (78.0-98.0); Mean Platelet Volume 17.8 fL (7.4-10.4); Platelet Count 13 thou/uL (130-400); RBC Distribution Width 19.3 % (11.5-14.5); Red Blood Cell (RBC) Count 2.38 mill/uL (4.20-5.40); White Blood Cell (WBC) Count 13.4 thou/uL (4.8-10.8)
[2020-04-17 04:40] LABS: Band 46 % (5-11); Lymphocytes 1 % (21-51); MDiff Complete? YES; Monocytes 2 % (0-10); Neutrophil 51 % (42-75); Platelet Morphology Comment Appears Decreased
[2020-04-17 04:49] LABS: ALT (SGPT) Less than 7 U/L (8-55); AST (SGOT) 29 U/L (5-34); Albumin 2.8 g/dL (3.4-4.8); Alkaline Phosphatase 35 U/L (40-110); Anion Gap 23 mmol/L (10-20); Bilirubin, Total 6.9 mg/dL (0.2-1.2); Calc. Creatinine Clearance 18 mL/min (70-130); Calcium 8.9 mg/dL (7.8-10.44); Carbon Dioxide 17 mmol/L (23-31); Chloride 105 mmol/L (98-107); Globulin 3.2 g/dL (2.4-3.5); Glucose 215 mg/dL (83-110); Potassium 4.6 mmol/L (3.5-5.1); Sodium 140 mmol/L (136-145)
[2020-04-17 05:06] LABS: BUN (Urea Nitrogen) 121 mg/dL (9.8-20.1)
[2020-04-17 07:31] LABS: Actual Bicarbonate (HCO3a) 18.3 mEq/L (22-28); Base Excess (BEa) -6.8 mEq/L (-2.0 to +3.0); CO2 Tension 34.3 mmHg (35.0-45.0); Calcium, Ionized (arterial) 1.13 mmol/L (1.12-1.30); Carboxyhemoglobin (COHb) 0.4 gm% (0.0-3.0); Hemoglobin (Hb) 7.3 g/dL (12.0-16.0); O2 Tension (PaO2), arterial 63.1 mmHg (> 70.0); Potassium - ABG Lab 4.45 mmol/L (3.70-5.30); pH, Arterial 7.34 (7.35-7.45)
[2020-04-17 07:41] LABS: Puncture Site RRA
[2020-04-17 07:42] LABS: ALV-art Gradient 321.825 mmHg (0-20)
[2020-04-17] MEDS: Famotidine/PF 20 mg/2ml Vial SLOW IVP SCH (08:13)
[2020-04-17] MEDS: Fluconazole In NaCl,Iso-Osm 100 MG in Admixture Fee 2 EACH IVPB SCH (08:13)
[2020-04-17] MEDS ORDERED: Lidocaine Viscous Sol 2% 15 ml UD Cup SSW PRN (08:50)
[2020-04-17] MEDS: CETACAINE FS SCH ×2 (09:15→09:16)
[2020-04-18 03:51] LABS: Hemoglobin 6.9 g/dL (12.0-16.0); Mean Corpuscular HGB CONC 31.4 g/dL (32.0-36.0); Mean Corpuscular Hemoglobin 30.2 pg (27.0-31.0); Mean Platelet Volume 17.9 fL (7.4-10.4); Platelet Count 11 thou/uL (130-400); RBC Distribution Width 19.6 % (11.5-14.5); Red Blood Cell (RBC) Count 2.28 mill/uL (4.20-5.40); White Blood Cell (WBC) Count 15.2 thou/uL (4.8-10.8)
[2020-04-18 04:09] LABS: ALT (SGPT) Less than 7 U/L (8-55); AST (SGOT) 34 U/L (5-34); Albumin 2.4 g/dL (3.4-4.8); Alkaline Phosphatase 34 U/L (40-110); Anion Gap 24 mmol/L (10-20); Band 40 % (5-11); Calc. Creatinine Clearance 18 mL/min (70-130); Calcium 8.5 mg/dL (7.8-10.44); Carbon Dioxide 15 mmol/L (23-31); Chloride 104 mmol/L (98-107); Elliptocytes SLIGHT = 2-5 cells (100X) (0-1/hpf); Globulin 2.9 g/dL (2.4-3.5); Glucose 175 mg/dL (83-110); Hypochromia SLIGHT = 6-15 cells (100X) (0-5/hpf); Lymphocytes 2 % (21-51); MDiff Complete? YES; Metamyelocyte 2 % (0-0); Monocytes 4 % (0-10); Neutrophil 52 % (42-75); Platelet Morphology Comment Appears Decreased; Potassium 4.9 mmol/L (3.5-5.1); Protein, Total 5.3 g/dL (5.8-8.1); Sodium 138 mmol/L (136-145); Target Cells SLIGHT = 2-5 cells (100X) (0-1/hpf)
[2020-04-18 04:54] LABS: BUN (Urea Nitrogen) 135 mg/dL (9.8-20.1)
[2020-04-18 05:49] VITALS: BMI 37.0
[2020-04-18] MEDS: methylPREDNISolone Sod Succ 40 MG VIAL IVP SCH (06:59)
[2020-04-18 07:15] VITALS: BP 74/41
[2020-04-18] MEDS ORDERED: Fentanyl 100 MCG/2 ML VIAL SLOW IVP PRN (07:59)
[2020-04-18 08:11] VITALS: TEMP 97.1
[2020-04-18] MEDS ORDERED: Lorazepam 2 MG/ML VIAL SLOW IVP PRN (09:32)
== END 2020-04-18 15:07 | disposition expired | DRG 870 ==
LOC: ERS 08:58 → CCU 11:42
PROVIDERS: ADMIT Specialist; ATTEND Specialist
PROC: 0BH17EZ Insertion of Endotracheal Airway into Trachea, Via Natural or Artificial Opening (ICD-10-PCS; principal; 2020-04-08)
PROC: 5A1955Z Respiratory Ventilation, Greater than 96 Consecutive Hours (ICD-10-PCS; 2020-04-08)
PROC: 0BJ08ZZ Inspection of Tracheobronchial Tree, Via Natural or Artificial Opening Endoscopic (ICD-10-PCS; 2020-04-08)
PROC: 0D9670Z Drainage of Stomach with Drainage Device, Via Natural or Artificial Opening (ICD-10-PCS; 2020-04-08)
PROC: 3E033XZ Introduction of Vasopressor into Peripheral Vein, Percutaneous Approach (ICD-10-PCS; 2020-04-08)
PROC: 06HY33Z Insertion of Infusion Device into Lower Vein, Percutaneous Approach (ICD-10-PCS; 2020-04-08)
PROC: 30233N1 Transfusion of Nonautologous Red Blood Cells into Peripheral Vein, Percutaneous Approach (ICD-10-PCS; 2020-04-09)
PROC: 30233R1 Transfusion of Nonautologous Platelets into Peripheral Vein, Percutaneous Approach (ICD-10-PCS; 2020-04-10)
DX: A41.9 Sepsis, unspecified organism (principal); J15.0 Pneumonia due to Klebsiella pneumoniae; R65.21 Severe sepsis with septic shock; I50.41 Acute combined systolic (congestive) and diastolic (congestive) heart failure; J96.01 Acute respiratory failure with hypoxia; I21.4 Non-ST elevation (NSTEMI) myocardial infarction; E43 Unspecified severe protein-calorie malnutrition; E87.2 Acidosis; L03.319 Cellulitis of trunk, unspecified; J44.0 Chronic obstructive pulmonary disease with (acute) lower respiratory infection; J44.1 Chronic obstructive pulmonary disease with (acute) exacerbation; N17.9 Acute kidney failure, unspecified; I13.0 Hypertensive heart and chronic kidney disease with heart failure and stage 1 through stage 4 chronic kidney disease, or unspecified chronic kidney disease; I48.20 Chronic atrial fibrillation, unspecified; D61.818 Other pancytopenia; C22.1 Intrahepatic bile duct carcinoma; C78.7 Secondary malignant neoplasm of liver and intrahepatic bile duct; K92.2 Gastrointestinal hemorrhage, unspecified; Z51.5 Encounter for palliative care; Z66 Do not resuscitate; E11.649 Type 2 diabetes mellitus with hypoglycemia without coma; E88.09 Other disorders of plasma-protein metabolism, not elsewhere classified; T21.02XA Burn of unspecified degree of abdominal wall, initial encounter; E11.22 Type 2 diabetes mellitus with diabetic chronic kidney disease; B19.20 Unspecified viral hepatitis C without hepatic coma; D47.3 Essential (hemorrhagic) thrombocythemia; D63.1 Anemia in chronic kidney disease; N18.30 Chronic kidney disease, stage 3 unspecified; R53.81 Other malaise; R57.1 Hypovolemic shock; K21.9 Gastro-esophageal reflux disease without esophagitis; Z20.822 Contact with and (suspected) exposure to COVID-19; I25.10 Atherosclerotic heart disease of native coronary artery without angina pectoris; Z92.21 Personal history of antineoplastic chemotherapy; Z92.3 Personal history of irradiation; Z87.891 Personal history of nicotine dependence; Z88.1 Allergy status to other antibiotic agents; Z88.0 Allergy status to penicillin; Z88.6 Allergy status to analgesic agent; Z87.09 Personal history of other diseases of the respiratory system; Z88.7 Allergy status to serum and vaccine; Z88.8 Allergy status to other drugs, medicaments and biological substances; Z87.19 Personal history of other diseases of the digestive system; Z95.5 Presence of coronary angioplasty implant and graft; Z83.3 Family history of diabetes mellitus; Z82.49 Family history of ischemic heart disease and other diseases of the circulatory system; Z78.1 Physical restraint status; Z68.29 Body mass index [BMI] 29.0-29.9, adult
CPT/HCPCS: 0240U; 31500; 31624; 36415; 36416; 36430; 36556; 36600; 51702; 70450; 71045; 71250; 80053; 81003; 82553; 82805; 83605; 83690; 83880; 84443; 84484; 85007; 85025; 85027; 85049; 85060; 85300; 85362; 85379; 85384; 85610; 85730; 86850; 86900; 86901; 86922; 87040; 87070; 87077; 87086; 87149; 87186; 87205; 93005; 93306; 94002; 94003; 94640; 94760; 96361; 96365; 96366; 96367; 96368; 96375; J0692; J1450; J1940; J2060; J2185; J2704; J2920; J3010; J3370; J3480; J3490; J7070; J7611; J7620; P9016; P9035; P9047; S0028